=== PATIENT | female | born 1950 | race Caucasian/White ===

== ENCOUNTER → 2016-07-05 | Outpatient (CLI) | payer MEDICARE, OTHER ==
--- NOTE | 2016-07-05 13:24 | XCELERA REPORT ---
[address] [address] Lower Extremity Venous Evaluation Name: RICARDO HOLM Age: 65 yrs Gender: Female : 1950 Patient Status: Outpatient Patient Location: Study Date: 07/05/2016 11:42 AM Procedure: Color flow and duplex imaging bilaterally of the veins of the lower extremities as well as the Common Femoral veins. Reason For Study: BLE PAIN Ordering Physician: GERARDO MCCLENDON Performed By: Angelika Kaufman Right Sided Venous Evaluation Normal vessel filling wall to wall, compression and augmentation as well as Colour flow down to the infrageniculate veins. Left Sided Venous Evaluation Abnormal finding of continuous flow in the Common Femoral vein. Otherwise normal vessel filling wall to wall, compression and augmentation as well as Colour flow down to the infrageniculate veins. Critical Findings Discussed with MALIK Bowman, Iliac and IVC evaluation seems indicated. Perhaps by MRV, or CTV. Interpretation Summary No duplex evidence of DVT or obstruction in the bilateral lower extremities. 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 : GERARDO MCCLENDON > Vic Solis
== END ==
LOC: SP 11:35
PROVIDERS: ATTEND Nurse Practitioner Psychiatric/Mental Health
DX: M79.662 Pain in left lower leg (principal); M79.661 Pain in right lower leg
CPT/HCPCS: 93970

== ENCOUNTER 2016-07-07 02:33 | Emergency (ER) | payer MEDICARE, OTHER ==
[2016-07-07] MEDS ORDERED: ONDANSETRON 4 MG TAB.RAPDIS PO ONE (03:17)
--- NOTE | 2016-07-07 03:23 | ER Document Report ---
ED GI/ - General Chief Complaint: Nausea/Vomiting/Diarrhea Stated Complaint: VOMITING AND DIARRHEA Notes: The patient is a 65-year-old female, past medical history prior CVA with mild residual left-sided weakness, hypertension, presents with 4 hours of nausea, vomiting and 3 episodes of diarrhea. She thinks that she is having a stroke again because she is having tingling on both cheeks after she vomited. Initially, her family members said that she had slurred speech, but she did not have her dentures in place and when she put them in, her speech was normal. She denies chest pain, shortness of breath, acute focal weakness, fevers, hematemesis, hematochezia, urinary symptoms, rash, abdominal pain, headache, recent travel or sick contacts. TRAVEL OUTSIDE OF THE [place] IN LAST 30 DAYS: No - Related Data Allergies/Adverse Reactions: iodine [Iodine] Allergy (Verified 02/08/16 15:38) Sulfa (Sulfonamide Antibiotics) Allergy (Verified 02/08/16 15:38) Fish Allergy (Severe, Uncoded 02/08/16 15:38) Past Medical History - General Information source: Patient - Social History Smoking Status: Unknown if Ever Smoked Family History: Reviewed & Not Pertinent, Hypertension Patient has suicidal ideation: No Patient has homicidal ideation: No - Past Medical History Cardiac Medical History: Reports: Hx Congestive Heart Failure, Hx Heart Attack, Hx Hypercholesterolemia, Hx Hypertension Pulmonary Medical History: Denies: Hx Asthma, Hx Bronchitis, Hx COPD, Hx Pneumonia, Hx Tuberculosis Neurological Medical History: Denies: Hx Seizures Endocrine Medical History: Reports: Hx Diabetes Mellitus Type 2 Renal/ Medical History: Reports: Hx Kidney Stones. Denies: Hx End Stage Renal Disease, Hx Peritoneal Dialysis GI Medical History: Reports: Hx Gastroesophageal Reflux Disease. Denies: Hx Cirrhosis, Hx Ulcer Musculoskeltal Medical History: Denies Hx Arthritis, Denies Hx Multiple Sclerosis Psychiatric Medical History: Reports: Hx Depression Denies: Hx Bipolar Disorder, Hx Schizophrenia Past Surgical History: Reports: Hx Cardiac Catheterization, Hx Cardiac Surgery - STENT placement, Hx Cholecystectomy, Hx Hysterectomy - Immunizations Hx Diphtheria, Pertussis, Tetanus Vaccination: No Hx Pneumococcal Vaccination: 12/16/11 Review of Systems - Review of Systems Notes: REVIEW OF SYSTEMS: CONSTITUTIONAL: -fevers, -chills EENT: -eye pain, -difficulty swallowing, -nasal congestion CARDIOVASCULAR:-chest pain, -syncope. RESPIRATORY: -cough, -SOB GASTROINTESTINAL: -abdominal pain, +nausea, +vomiting, +diarrhea GENITOURINARY: -dysuria, -hematuria MUSCULOSKELETAL: -back pain, -neck pain SKIN: -rash or skin lesions. HEMATOLOGIC: -easy bruising or bleeding. LYMPHATIC: -swollen, enlarged glands. NEUROLOGICAL: -altered mental status or loss of consciousness, -headache, + tingling over B/L cheeks PSYCHIATRIC: -anxiety, -depression. ALL OTHER SYSTEMS REVIEWED AND NEGATIVE. Physical Exam - Vital signs Vitals: Temp Pulse Resp BP Pulse Ox 97.3 F 66 28 H 181/84 H 100 07/07/16 02:38 07/07/16 02:38 07/07/16 02:38 07/07/16 02:38 07/07/16 02:38 - Notes Notes: PHYSICAL EXAMINATION: GENERAL: Well-appearing, well-nourished and in no acute distress. HEAD: Atraumatic, normocephalic. EYES: Pupils equal round and reactive to light, extraocular movements intact, sclera anicteric, conjunctiva are normal. ENT: nares patent, oropharynx clear without exudates. Moist mucous membranes. NECK: Normal range of motion, supple without lymphadenopathy LUNGS: Breath sounds clear to auscultation bilaterally and equal. No wheezes rales or rhonchi. HEART: Regular rate and rhythm without murmurs ABDOMEN: Soft, nontender, normoactive bowel sounds. No guarding, no rebound. No masses appreciated. EXTREMITIES: Normal range of motion, no pitting or edema. No cyanosis. NEUROLOGICAL: Cranial nerves grossly intact. Normal speech, normal gait. Normal sensory, motor, and reflex exams. PSYCH: Normal mood, normal affect. SKIN: Warm, Dry, normal turgor, no rashes or lesions noted. Course - Re-evaluation Re-evalutation: Patient made a stroke alert by triage nurse. CT head does not show any acute changes. Symptoms are not consistent with a stroke. She has bilateral cheek tingling after vomiting and her slurred speech was from lack of dentures. Her electrolytes are unremarkable, other than slight hypokalemia, which was repleted in the ER. She has a slight leukocytosis, which is most likely reactive from vomiting. No signs of infection. After Zofran, patient feels much better and is drinking in the emergency room. Her blood pressure improved after she was given her home blood pressure medications. Will provide patient with Phenergan and instructions to stay hydrated. Given strict return precautions and she understands. - Vital Signs Vital signs: Temp Pulse Resp BP Pulse Ox 97.3 F 60 18 191/95 H 97 07/07/16 02:38 07/07/16 03:41 07/07/16 04:02 07/07/16 04:02 07/07/16 04:02 - Laboratory Result Diagrams: 07/07/16 03:25 07/07/16 03:25 Laboratory results interpreted by me: 07/07/16 07/07/16 03:25 03:25 WBC 12.1 H MCH 26.3 L RDW 16.3 H Seg Neutrophils % 87.6 H Lymphocytes % 8.9 L Monocytes % 2.9 L Absolute Neutrophils 10.6 H Potassium 3.3 L Carbon Dioxide 15 L Anion Gap 23 H Glucose 365 H AST 45 H - EKG Interpretation by Me EKG shows normal: Sinus rhythm, [place], Intervals, QRS Complexes, ST-T Waves Additional EKG results interpreted by me: Prolonged QTc 515 Discharge - Discharge Clinical Impression: Nausea vomiting and diarrhea, Hypokalemia Condition: Stable Disposition: HOME, SELF-CARE Additional Instructions: VOMITING: Vomiting (or nausea without vomiting) can be caused by many other different problems. It can mean that something's wrong with the stomach, such as ulcers or inflammation or the intestinal tract, such as appendicitis. But it can also be a symptom of a problem that has nothing to do with the stomach or intestines. Vomiting is common with severe headaches, earaches, tonsillitis, and kidney infections, etc. We see it with pneumonia or heart attacks. Drugs can cause nausea and vomiting. Many abdominal problems cause vomiting; for example, gallstones, kidney stones, pancreatitis, and intestinal obstruction ( blocked bowels). In most cases, curing the vomiting depends on fixing the problem that caused it. For temporary relief, we may use an anti-nausea medicine. For home use, we can prescribe suppositories, chewable pills, pills that dissolve in the mouth, or liquid anti-nausea drugs. If the vomiting seems to be caused by a problem in the stomach, acid-suppressing drugs may be prescribed as well. It's important to avoid dehydration. Sip small amounts of clear liquids ( soft drinks, tea, broth, etc) . Try to take fluids frequently even if you are vomiting to prevent dehydration. Take increasing amounts of fluid and when liquids are being consumed successfully, advance to small amounts of bland food (toast, soups, mashed potatoes, etc.) until you are able to resume a regular diet. Avoid aspirin, tobacco, and alcohol. If the vomiting worsens, if the problem that's making you vomit worsens, or if there's evidence of bleeding in the stomach (such as black, tarry stool, or bloody or black vomit), you should return immediately. Also, return if abdominal pain worsens or becomes localized to one area or you develop high fever. Call your doctor if you aren't improved in 24 hours. DIARRHEA, NON-SPECIFIC: Diarrhea means frequent, watery stools. There are many causes. Any problem that keeps the intestinal tract from absorbing water from the stool can lead to diarrhea. A sudden new diarrhea problem is usually caused by a virus, food sensitivity, toxic bacteria, or drugs. In this case, we expect the problem to go away soon. Testing is done only if you seem seriously ill from the diarrhea. If you have chronic diarrhea, or diarrhea that keeps coming back, we need to find out why. Chronic diarrhea can be due to inflammation of the bowels such as Crohn's disease or ulcerative colitis, food sensitivity such as intolerance to lactose or wheat protein, irritable bowel syndrome, and other problems. If your diarrhea is a significant problem but it's not clear why you have it, we' ll refer you to a specialist for further testing. During an episode of diarrhea, drink small amounts (two to six ounces) of clear liquids (soft drinks, sport drinks, herb teas, broth, etc). Take fluids frequently to prevent dehydration. It's usually not a problem to take mild anti- diarrhea medication such as Kaopectate or Pepto-Bismol. As the diarrhea eases, advance to small amounts of bland food (mashed potato, toast) for 24 hours. Call the physician if blood appears in your vomit or stool, if vomiting lasts longer than 24 hours, if the abdominal pain worsens or becomes localized to one area, if you develop high fever, or if you become lightheaded and weak. VIRAL SYNDROME: The physician has diagnosed a viral infection. Viruses not only cause "colds," but can cause many different symptoms including generalized aching, fever, headache, cough, diarrhea, nausea, vomiting, and fatigue. The treatment, for the most part, is simply relief of symptoms. This means that antibiotics are usually not given. Rest, fluids, pain medications and, occasionally, medication for the specific symptoms that are most bothersome will be prescribed. Use good handwashing to avoid passing the virus to others. Shared toys should be cleaned with disinfectant. Clean the toilets, sinks, and counter surfaces in bathrooms. Launder clothing in hot water. Contact the physician if you develop any new or unusual symptoms such as severe headache, stiff neck, high fever, chest pain, productive cough, or shortness of breath. You should be rechecked if you don't see marked improvement within seven to 10 days. INTRAVENOUS (I V) FLUIDS: As part of your care today, you received intravenous (IV) fluids. IV fluids are administered to patients who are dehydrated or to those who have certain chemical (electrolyte) abnormalities that need correcting. ANTINAUSEA MEDICATION: You have been given a medication to suppress nausea and vomiting. This type of medication can be given as a shot, pill, or suppository. It will usually last for many hours. Pills and shots usually last six to eight hours. For the typical illness, only one or two doses of the medication may be necessary. Mild lightheadedness may occur. This type of medicine can cause drowsiness. Do not drive or operate dangerous machinery while under its influence. Do not mix with alcohol. See your doctor at once if you have muscle spasms or tightness, or uncontrollable motions (particularly of the neck, mouth, or jaw). Persistent vomiting or severe lightheadedness should also be evaluated by the physician. FOLLOW-UP CARE: If you have been referred to a physician for follow-up care, call the physician s office for an appointment as you were instructed or within the next two days. If you experience worsening or a significant change in your symptoms, notify the physician immediately or return to the Emergency Department at any time for re-evaluation. Prescriptions: Promethazine HCl [Phenergan 25 mg Tablet] 1 - 2 tab PO Q6H PRN #15 tablet PRN Reason: Forms: Elevated Blood Pressure Referrals: PONCHO CONTRERAS MD [Primary Care Provider] - Follow up as needed
[2016-07-07 03:50] LABS: ABSOLUTE BASOPHILS # (AUTO) 0.1 10^3/uL (0.0-0.2); ABSOLUTE LYMPHOCYTES (AUTO) 1.1 10^3/uL (0.5-4.7); ABSOLUTE MONOCYTES (AUTO) 0.3 10^3/uL (0.1-1.4); ABSOLUTE NEUT (AUTO) 10.6 10^3/uL (1.7-8.2); BASOPHILS % (AUTO) 0.5 % (0-2); EOSINOPHILS % (AUTO) 0.1 % (0-6); HEMOGLOBIN 13.4 g/dL (12.0-15.5); HGB HCT DIFFERENCE -0.8; LYMPHOCYTES % (AUTO) 8.9 % (13-45); MEAN CORPUSCULAR HEMOGLOBIN 26.3 pg (27.0-33.4); MEAN CORPUSCULAR HGB CONC 32.8 g/dL (32.0-36.0); MEAN CORPUSCULAR VOLUME 80 fl (80-97); MONOCYTES % (AUTO) 2.9 % (3-13); RED BLOOD COUNT 5.11 10^6/uL (3.72-5.28); RED CELL DISTRIBUTION WIDTH 16.3 % (11.5-14.0); SEGMENTED NEUTROPHILS % (AUTO) 87.6 % (42-78); WHITE BLOOD COUNT 12.1 10^3/uL (4.0-10.5)
[2016-07-07] MEDS ORDERED: LOSARTAN POTASSIUM 50 MG TABLET PO ONE (03:56)
[2016-07-07] MEDS ORDERED: NORMAL SALINE 1000 ML 1,000 ML IV ONE (03:56)
[2016-07-07] MEDS ORDERED: METOPROLOL TARTRATE 25 MG TABLET PO ONE (03:56)
[2016-07-07] MEDS ORDERED: HYDROCHLOROTHIAZIDE 25 MG TABLET PO ONE (03:56)
[2016-07-07 04:02] LABS: ALANINE AMINOTRANSFERASE 47 U/L (9-52); ALBUMIN 3.9 g/dL (3.5-5.0); ALKALINE PHOSPHATASE 110 U/L (38-126); ASPARTATE AMINO TRANSFERASE 45 U/L (14-36); BILIRUBIN,DIRECT 0.3 mg/dL (0.0-0.4); BILIRUBIN,TOTAL 0.8 mg/dL (0.2-1.3); BLOOD UREA NITROGEN 11 mg/dL (7-20); CALCIUM 9.6 mg/dL (8.4-10.2); CARBON DIOXIDE 15 mmol/L (22-30); CREATININE RESULT 0.87 mg/dL (0.52-1.25); GLUCOSE 365 mg/dL (75-110); LIPASE 92.7 U/L (23-300); POTASSIUM 3.3 mmol/L (3.6-5.0)
[2016-07-07 04:13] LABS: CHLORIDE 105 mmol/L (98-107); SODIUM 143.4 mmol/L (137-145)
[2016-07-07 04:18] LABS: ANION GAP 23 (5-19)
[2016-07-07] MEDS ORDERED: POTASSIUM CHLORIDE 10 MEQ TABLET.SA PO ONE (04:42)
[2016-07-07 05:13] VITALS: BP 174/81
--- NOTE | 2016-07-07 16:59 | EKG REPORT ---
SEVERITY:- ABNORMAL ECG - SINUS RHYTHM PROBABLE ANTEROSEPTAL INFARCT, AGE INDETERM PROLONGED QT INTERVAL : Confirmed by: Rosa Maria Olivarez MD 07-Jul-2016 16:58:55
== END 2016-07-07 05:13 | disposition home or self-care (01) ==
LOC: ER 02:33
DX: R11.2 Nausea with vomiting, unspecified (principal); R19.7 Diarrhea, unspecified; E87.6 Hypokalemia; R53.1 Weakness; I10 Essential (primary) hypertension
CPT/HCPCS: 93005; 99285; 96360; 36415; 83690; 85025; 80076; 80048; 84484; 71010; 70450; 93010; A9270 ×4; J7030; S0119

== ENCOUNTER 2016-07-07 14:20 | Emergency (ER) | payer MEDICARE, OTHER ==
--- NOTE | 2016-07-07 14:38 | ER Document Report ---
ED Neuro Symptoms/Deficit - General Mode of Arrival: Medic Information source: Patient, Relative Notes: 65 year old female with history of a CVA, residual left lower extremity weakness , and hypertension presents to the ED complaining of nausea, vomiting, diarrhea , and new onset left upper and lower extremity weakness that the patient noticed when she woke up this morning. Patient was seen here last night complaining of nausea, vomiting, diarrhea, and slurred speech. Patient's family was concerned over a possible stroke, but no findings suggesting a stroke was found. Daughter reports that the patient must have developed the weakness after coming home from the ED last night because she was able to walk into the house on her own. Today, the patient states that she is having difficulty walking and was unable to walk to EMS just prior to arrival. Patient denies any new pain, blood in the stool, or slurry speech. Daughter states that the patient's speech is usually better than it is upon examination. Patient's primary care provider is Dr. Contreras. TRAVEL OUTSIDE OF THE [place] IN LAST 30 DAYS: No - HPI Patient complains to provider of: Difficulty walking, Weakness - left arm and leg Onset: This morning Baseline Cognitive: Alert, oriented X 3 Baseline Gait: Uses a cane/walker Pre-existing weakness: Lower extremity - left leg Alert To: Name/Voice Patient Orientation: Person New weakness: LUE, LLE Associated symptoms: Other - see notes above Recently seen / treated by doctor: Yes - Seen in ED earlier this morning. <RICARDA DICKERSON - Last Filed: 07/07/16 19:09> <BLAZE STEIN - Last Filed: 07/07/16 20:11> <ALIYA FIELDS E - Last Filed: 07/07/16 22:35> - General Chief Complaint: S/S of Possible Stroke Stated Complaint: POSSIBLE STROKE - Related Data Allergies/Adverse Reactions: iodine [Iodine] Allergy (Verified 02/08/16 15:38) Sulfa (Sulfonamide Antibiotics) Allergy (Verified 02/08/16 15:38) Fish Allergy (Severe, Uncoded 02/08/16 15:38) Past Medical History - General Information source: Patient, Relative - Social History Smoking Status: Unknown if Ever Smoked Family History: Hypertension - Past Medical History Cardiac Medical History: Reports: Hx Congestive Heart Failure, Hx Heart Attack, Hx Hypercholesterolemia, Hx Hypertension Neurological Medical History: Reports: Hx Cerebrovascular Accident - residual left lower extremity weakness Endocrine Medical History: Reports: Hx Diabetes Mellitus Type 2 Renal/ Medical History: Reports: Hx Kidney Stones GI Medical History: Reports: Hx Gastroesophageal Reflux Disease Psychiatric Medical History: Reports: Hx Depression Past Surgical History: Reports: Hx Cardiac Catheterization, Hx Cardiac Surgery - STENT placement, Hx Cholecystectomy, Hx Hysterectomy - Immunizations Hx Diphtheria, Pertussis, Tetanus Vaccination: No Hx Pneumococcal Vaccination: 12/16/11 <RICARDA DICKERSON - Last Filed: 07/07/16 19:09> Review of Systems - Review of Systems Constitutional: No symptoms reported EENT: No symptoms reported Cardiovascular: No symptoms reported Respiratory: No symptoms reported Gastrointestinal: See HPI, Diarrhea, Nausea, Vomiting. denies: Black stools, Rectal bleeding Genitourinary: No symptoms reported Female Genitourinary: No symptoms reported Musculoskeletal: No symptoms reported Skin: No symptoms reported Hematologic/Lymphatic: No symptoms reported Neurological/Psychological: See HPI, Weakness - left upper and lower extremity, Speech impairment - possible -: Yes All other systems reviewed and negative <RICARDA DICKERSON - Last Filed: 07/07/16 19:09> Physical Exam - Vital signs Vitals: Temp Pulse Resp BP Pulse Ox 97.8 F 64 20 186/92 H 97 07/07/16 14:20 07/07/16 14:20 07/07/16 14:20 07/07/16 14:20 07/07/16 14:20 - General General appearance: Alert In distress: None - HEENT Head: Atraumatic, Other - nasolabial flattening to the left face. No: Normocephalic Eyes: Normal Extraocular movements intact: Yes Pupils: PERRL - Respiratory Respiratory status: No respiratory distress Breath sounds: Normal - Cardiovascular Rhythm: Regular Heart sounds: Normal auscultation - Abdominal Inspection: Normal Distension: No distension Bowel sounds: Hyperactive Tenderness: Nontender - Back Back: Normal - Extremities General upper extremity: No: Normal inspection - see neuro exam, Normal ROM General lower extremity: No: Normal inspection - see neuro exam, Normal ROM - Neurological Neuro grossly intact: Yes Cognition: Normal Orientation: AAOx4 Chloé Coma Scale Eye Opening: Spontaneous [place] Coma Scale Verbal: Oriented Chloé Coma Scale Motor: Obeys Commands Chloé Coma Scale Total: 15 Speech: Normal Motor strength normal: RUE, RLE. No: LUE - Contracture with weakness to the LUE , LLE - Contracture with weakness to the LLE - Psychological Associated symptoms: Normal affect, Normal mood - Skin Skin Temperature: Warm Skin Moisture: Dry Skin Color: Normal <RICARDA DICKERSON - Last Filed: 07/07/16 19:09> - Vital signs Vitals: Temp Pulse Resp BP Pulse Ox 97.8 F 64 20 186/92 H 97 07/07/16 14:20 07/07/16 14:20 07/07/16 14:20 07/07/16 14:20 07/07/16 14:20 <BLAZE STEIN F - Last Filed: 07/07/16 20:11> - Vital signs Vitals: Temp Pulse Resp BP Pulse Ox 97.8 F 64 20 186/92 H 97 07/07/16 14:20 07/07/16 14:20 07/07/16 14:20 07/07/16 14:20 07/07/16 14:20 <ALIYA FIELDS E - Last Filed: 07/07/16 22:35> Course - Vital Signs Vital signs: Temp Pulse Resp BP Pulse Ox 97.8 F 64 20 163/76 H 100 07/07/16 14:20 07/07/16 14:20 07/07/16 14:20 07/07/16 14:28 07/07/16 14:23 - Laboratory Result Diagrams: 07/07/16 15:45 07/07/16 15:15 - Consults Dr. Dickerson Time consulted: 18:45 Reason for consultation: 07/07/16 18:45 Patient was discussed with Dr. Dickerson and states to repeat troponin and check for C-diff. Will admit the patient to IMCU under Dr. Contreras. 07/07/16 19:09 Patient went into non-sustained V-tach. Dr. Dickerson was at bedside and agrees that the patient should go to ICU. <RICARDA DICKERSON - Last Filed: 07/07/16 19:09> - Re-evaluation Re-evalutation: 07/07/16 17:52 Initial presentation by family showed the patient with increasing from chronic neurologic symptoms from an old MCA stroke. She is slowly improved though in mentation and moving her extremities much better. Appears more consistent at this point with sepsis of unclear source though findings are still pending. Lactic acid is elevated at 2.8 so we will increase her fluids though she has had no evidence of hypoperfusion other than potential decreased mentation and weakness generally. 07/07/16 19:13 Patient had an episode of nonsustained V. tach. Discussed with Dr. Dickerson and recommended repeat troponin. Patient has denied chest pain. Her initial troponin was borderline. She remained completely responsive during the episode. 07/07/16 19:30 The patient had an NC apparently in December of last year treated at [facility]. I do have record of one from 2013 here. The pacemaker and defibrillator placement apparently was at the end of 2014 or 2015. She is taking Brilinta as her only blood thinner. 07/07/16 19:33 Patient's troponin is gone from 0.018 to 0.067 from 3 AM to approximately 3:45 PM today. She denies any current chest discomfort. She is already on Brilinta so will not give her aspirin, particularly with her nausea. Her abdominal CT showed nephrolithiasis and diverticulosis but no clear acute issue. Awaiting a return call from [facility] lab contacted for transfer. 07/07/16 19:[address] Wheeler, from the internal medicine service, at [facility]. She prefers I talked to cardiology prior to accepting the patient in transfer. 07/07/16 20:[address] Camargo who reviewed the patient's chart and has had nonsustained V. tach in the past. She did not feel the patient was probably defibrillated as these runs were shorter than that. I spoke with Dr. Blanca morrison again and they will accept the patient in transfer. Urinalysis appears to be the source of infection. She has already been treated with Zosyn. She is having her potassium replaced. Dr. Camargo did not feel we should be using amiodarone at this point with the nonsustained V. tach. - Vital Signs Vital signs: Temp Pulse Resp BP Pulse Ox 97.8 F 58 L 20 163/76 H 100 07/07/16 14:20 07/07/16 14:28 07/07/16 14:28 07/07/16 14:28 07/07/16 15:51 - Laboratory Result Diagrams: 07/07/16 15:45 07/07/16 15:15 - Diagnostic Test Radiology reviewed: Image reviewed, Reports reviewed - Head CT shows chronic microvascular changes and chest x-ray shows no acute process - EKG Interpretation by Me EKG shows normal: Sinus rhythm Rate: Normal - Heart rate 69. Nonspecific T-wave abnormalities in the lateral leads. <BLAZE STEIN F - Last Filed: 07/07/16 20:11> - Re-evaluation Re-evalutation: 07/07/16 22:34 [facility] in ER and patient is stable for transfer to [facility]. - Vital Signs Vital signs: Temp Pulse Resp BP Pulse Ox 98.3 F 63 11 L 151/98 H 100 07/07/16 21:55 07/07/16 21:00 07/07/16 21:59 07/07/16 21:59 07/07/16 21:59 - Laboratory Result Diagrams: 07/07/16 15:45 07/07/16 15:15 Laboratory results interpreted by me: 07/07/16 07/07/16 07/07/16 15:15 15:45 15:45 WBC 21.1 H RBC 5.42 H MCV 79 L MCH 26.3 L RDW 16.2 H Seg Neuts % (Manual) 93 H Band Neutrophils % 1 L Lymphocytes % (Manual) 5 L Monocytes % (Manual) 1 L Abs Neuts (Manual) 19.8 H APTT 22.8 L Potassium 3.2 L Chloride 96 L Anion Gap 24 H Glucose 317 H Lactic Acid AST 54 H Creatine Kinase 998 H CK-MB (CK-2) Urine Protein Urine Glucose (UA) Urine Ketones Urine Blood Ur Leukocyte Esterase 07/07/16 07/07/16 07/07/16 15:45 17:15 18:50 WBC RBC MCV MCH RDW Seg Neuts % (Manual) Band Neutrophils % Lymphocytes % (Manual) Monocytes % (Manual) Abs Neuts (Manual) APTT Potassium Chloride Anion Gap Glucose Lactic Acid 2.8 H AST Creatine Kinase CK-MB (CK-2) 5.01 H Urine Protein 30 H Urine Glucose (UA) >=500 H Urine Ketones 20 H Urine Blood LARGE H Ur Leukocyte Esterase LARGE H <ALIYA FIELDS E - Last Filed: 07/07/16 22:35> Critical Care Note - Critical Care Note Total time excluding time spent on procedures (mins): 32 <BLAZE STEIN - Last Filed: 07/07/16 20:11> ED [employer]/Exc Criteria ED NIH Stroke Scale Discharge <RICARDA DICKERSON - Last Filed: 07/07/16 19:09> - Discharge Admitting Provider: Margaret Unit Admitted: JHONNY Michelleibe Attestation: 07/07/16 18:52 I personally performed the services described in the documentation, reviewed and edited the documentation which was dictated to the scribe in my presence, and it accurately records my words and actions. <BLAZE STEIN - Last Filed: 07/07/16 20:11> <ALIYA FIELDS - Last Filed: 07/07/16 22:35> - Discharge Clinical Impression: Sepsis, Vomiting and diarrhea, Left-sided weakness, Hypokalemia Condition: Serious Disposition: [facility] Referrals: PONCHO CONTRERAS MD [Primary Care Provider] - Follow up as needed Scribe Documentation - Scribe Written by Miguel Angelibe:: Luis Alfredo Edwards, 07/07/2016 1454 acting as scribe for :: Gilson <RICARDA DICKERSON - Last Filed: 07/07/16 19:09>
[2016-07-07] MEDS ORDERED: ONDANSETRON HCL INJ/PF 4 MG/2 ML SDV IV ONE ×2 (14:52→20:15)
[2016-07-07] MEDS ORDERED: NORMAL SALINE 1000 ML 1,000 ML IV ONE ×2 (14:53→17:59)
[2016-07-07 16:07] LABS: PROTHROMBIN TIME 13.4 SEC (11.4-15.4)
[2016-07-07 16:08] LABS: PARTIAL THROMBOPLASTIN TIME 22.8 SEC (23.5-35.8)
[2016-07-07 16:16] LABS: HEMATOCRIT 42.9 % (36.0-47.0); HEMOGLOBIN 14.3 g/dL (12.0-15.5); MEAN CORPUSCULAR HEMOGLOBIN 26.3 pg (27.0-33.4); MEAN CORPUSCULAR HGB CONC 33.3 g/dL (32.0-36.0); MEAN CORPUSCULAR VOLUME 79 fl (80-97); RED BLOOD COUNT 5.42 10^6/uL (3.72-5.28); RED CELL DISTRIBUTION WIDTH 16.2 % (11.5-14.0); WHITE BLOOD COUNT 21.1 10^3/uL (4.0-10.5)
[2016-07-07 16:18] LABS: ALANINE AMINOTRANSFERASE 52 U/L (9-52); ALBUMIN 4.5 g/dL (3.5-5.0); ALKALINE PHOSPHATASE 122 U/L (38-126); ASPARTATE AMINO TRANSFERASE 54 U/L (14-36); BILIRUBIN,DIRECT 0.3 mg/dL (0.0-0.4); BILIRUBIN,TOTAL 0.9 mg/dL (0.2-1.3); BLOOD UREA NITROGEN 10 mg/dL (7-20); CARBON DIOXIDE 24 mmol/L (22-30); CHLORIDE 96 mmol/L (98-107); CREATINE KINASE 998 U/L (30-135); CREATININE RESULT 0.87 mg/dL (0.52-1.25); GLUCOSE 317 mg/dL (75-110); SODIUM 143.5 mmol/L (137-145); TOTAL PROTEIN 7.9 g/dL (6.3-8.2)
[2016-07-07 16:19] LABS: ANION GAP 24 (5-19); POTASSIUM 3.2 mmol/L (3.6-5.0)
[2016-07-07 16:21] LABS: BAND NEUTROPHILS % (MANUAL) 1 % (3-5); BASOPHILS % (MANUAL) 0 % (0-2); EOSINOPHILS % (MANUAL) 0 % (0-6); LYMPHOCYTES % (MANUAL) 5 % (13-45); TOTAL CELLS COUNTED 100
[2016-07-07 16:22] LABS: RBC MORPHOLOGY COMMENT NORMO-CYTIC/CHROMIC
[2016-07-07 16:31] LABS: CREATINE KINASE MB 5.01 ng/mL (<4.55)
[2016-07-07 16:33] LABS: TROPONIN I 0.067 ng/mL
[2016-07-07] MEDS ORDERED: PIPERACILLIN/TAZOBACTAM 3.375 GM VIAL IV ONE (16:48)
--- NOTE | 2016-07-07 16:59 | EKG REPORT ---
SEVERITY:- ABNORMAL ECG - SINUS RHYTHM NONSPECIFIC T ABNORMALITIES, ANT-LAT LEADS BORDERLINE PROLONGED QT INTERVAL : Confirmed by: Rosa Maria Olivarez MD 07-Jul-2016 16:58:45
[2016-07-07] MEDS ORDERED: INSULIN REG, HUMAN 100 UNIT/ML 3 ML VIAL (PYX) IV ONE (18:42)
[2016-07-07] MEDS ORDERED: ONDANSETRON HCL INJ/PF 4 MG/2 ML SDV IV PRN (18:49)
[2016-07-07] MEDS ORDERED: NORMAL SALINE 1000 ML 1,000 ML IV PRN (18:49)
[2016-07-07] MEDS ORDERED: DEXTROSE 50%-WATER 25 GM/50 ML DISP.SYRIN IV PRN ×2 (18:53)
[2016-07-07] MEDS ORDERED: GLUCAGON,HUMAN RECOMB 1 MG INJ IM PRN (18:53)
[2016-07-07] MEDS ORDERED: INSULIN LISPRO 100 UNIT/ML 3 ML VIAL SUBCUT PRN (18:53)
[2016-07-07] MEDS ORDERED: DEXTROSE 40% GEL 15 GM TUBE PO PRN ×2 (18:53)
[2016-07-07 19:26] LABS: APPEARANCE,URINE CLOUDY; BILIRUBIN,URINE NEGATIVE (NEGATIVE); GLUCOSE, URINE >=500 mg/dL (NEGATIVE); KETONES,URINE 20 mg/dL (NEGATIVE); LEUKOCYTE ESTERASE,URINE LARGE (NEGATIVE); NITRITE,URINE NEGATIVE (NEGATIVE); PROTEIN,URINE 30 mg/dL (NEGATIVE); URINE SPECIFIC GRAVITY 1.013; UROBILINOGEN,URINE NEGATIVE mg/dL (<2.0)
[2016-07-07] MEDS ORDERED: POTASSIUM CHLORIDE 10 MEQ TABLET.SA PO ONE ×2 (19:36→22:00)
--- NOTE | 2016-07-07 19:58 | HISTORY AND PHYSICAL E ---
History and Physical NAME: RICARDO HOLM : 1950 AGE: 65Y ADMITTED: 07/07/2016 ROOM: ED14 HISTORY OF PRESENT ILLNESS: This is a patient of Dr. Contreras. A 65-year-old female with a history of severe left lower extremity weakness and hypertension who presents to the Emergency Department complaining of nausea, vomiting, diarrhea and lower extremity weakness. The patient noted when she woke up this morning. The patient was seen in the ER last night with nausea, vomiting, diarrhea, and slurred speech. The patient's white count was 12,000. Patient was discharged. The patient's family was concerned about possible stroke, but in the Emergency Department, the patient's initial workup of the patient white count was 21,000 and possible sepsis, most likely underlying urinary tract infection. The patient was complaining of some generalized abdominal pain. CT of the abdomen and pelvis without contrast was suggesting 2.3 cm calculus without obstruction. According to the ER physician and the nursing staff, the patient was a little bit more altered mental, and the patient is having more weakness, but now the patient is pretty much alert, awake, oriented x3, and patient moves all four extremities without any problems. The family is at the bedside in the Emergency Department, admitting to the IMCU for possible TIA and sepsis. Workup at this point, the patient currently feels better a little bit much, answering all questions appropriately. PAST MEDICAL HISTORY: 1. History of type 2 diabetes mellitus. 2. History of coronary artery disease status post stent placement. 3. History of CVA in the past with improved residual weakness. 4. History of gastroesophageal reflux disorder. 5. History of hypertension. 6. History of hyperlipidemia. 7. History of myocardial infarction in the past. PAST SURGICAL HISTORY: 1. Cardiac catheterization with stent angioplasty. 2. Cholecystectomy. 3. Hysterectomy. ALLERGIES: 1. SULFA. 2. IODINE. 3. *------*. FAMILY HISTORY: Remarkable for ischemic cardiac disease but non-contributory to this visit. PERSONAL HISTORY: Currently . Denied any current smoking, alcohol, or any drugs. CURRENT MEDICATIONS: 1. Brilinta. 2. Not sure of Phenergan. 3. Not sure of omeprazole. 4. Metoprolol. 5. Losartan. 6. Insulin. 7. Aspirin 81 mg. REVIEW OF SYSTEMS: As above. All other pertinents negative. PHYSICAL EXAMINATION: VITAL SIGNS: The patient's blood pressure was 161/67. Pulse was 72. Patient's temperature is 97.3. Respirations were 18 with 100% on room air. GENERAL: The patient is alert, awake currently, answering all questions in no acute distress. HEAD AND NECK: Normocephalic. PERRLA. LUNGS: No wheezing, no rales, no rhonchi. HEART: S1, S2 are present. ABDOMEN: Soft. Bowel sounds present. There is some mild tenderness but no guarding, no rigidity. EXTREMITIES: No edema. NEUROLOGIC: The patient's cranial nerves grossly intact. Patient is alert, awake, oriented x3. The patient moves all four extremities at this point without any problems. The patient's gait was not tested because the patient is currently weak. LABORATORIES: WBC is 21.1; hemoglobin is 14.3; platelets are 251, and segment is 93. The patient's INR is 0.99. Chemistry: Sodium is 143; potassium is 3.2; BUN is 10; creatinine is 0.87. The patient's AST is 54, ALT 52. Creatinine kinase was 998, and troponin 0.067. Lactic acid was 2.8. The patient's urine is still pending. The patient's head CT was done and shows the patient has chronic changes of atrophy and no acute process. Patient's abdomen and pelvis CT was done which shows the patient to have a 2.3 cm calculus identified in the left renal pelvis and 1.3 cm calculus in the lower pole *------*. There was no CT evidence of hydronephrosis. Mild sigmoid diverticulosis without acute inflammation. ASSESSMENT AND PLAN: 1. Acute cerebrovascular accident most likely a transient ischemic attack which is currently resolved. 2. Sepsis most likely urinary tract infection. 3. Kidney stones. 4. Type 2 diabetes mellitus. 5. Hypertension. 6. Hyperlipidemia. 7. Coronary artery disease status post stent placement. 8. Morbid obesity. PLAN: Admit the patient in the [facility] for stroke protocol. Put the patient on aspirin and consider Plavix. The patient is currently on Brilinta already right now. The patient will get cardiac enzymes q.6 x3 to rule out any coronary syndrome and also start the patient on broad-spectrum IV antibiotics for the urinary tract infection most likely. Otherwise, we will check the C. difficile for exposure to antibiotics. Discussed very extensively with the family member in the room, and more than 45 minutes spent. The patient is currently FULL CODE, and I will update the family about the patient's current condition. The patient is very critical at this point with ongoing TIA with sepsis. I hope the patient continues to be improved. DICTATING PHYSICIAN: THANG LITTLE M.D. [id number] PHY#: [id number] ID: [id number] JOB#: [id number] ACCT: [id number] cc:PONCHO CONTRERAS M.D. >
[2016-07-07] MEDS ORDERED: ONDANSETRON HCL INJ/PF 4 MG/2 ML SDV ONE (20:24)
[2016-07-07] MEDS ORDERED: FAMOTIDINE INJ/PF 20 MG/2 ML SDV IV SCH (22:00)
[2016-07-07 22:05] VITALS: BP 151/98
[2016-07-07] MEDS ORDERED: PIPERACILLIN/TAZOBACTAM 3.375 GM VIAL IV PRN (23:00)
[2016-07-08] MEDS ORDERED: PIPERACILLIN SODIUM/TAZOBACTAM 3.375 GM in NORMAL SALINE 100 ML IV SCH ×2
[2016-07-08] MEDS ORDERED: ENOXAPARIN SODIUM INJ 40 MG/0.4 ML DISP.SYRIN SUBCUT SCH (08:00)
[2016-07-08] MEDS ORDERED: ASPIRIN 325 MG TABLET, ENT COATED PO SCH (10:00)
--- NOTE | 2016-07-08 19:34 | PDOC CONSULTATION ---
Consultation Consult Date: 07/07/16 Attending physician:: THANG LITTLE Consult reason:: V Tach/ V FIB History of Present Illness Admission Date/PCP: PONCHO CONTRERAS Patient complains of: Generalised weakness History of Present Illness: 65 year old female with history of a CVA, residual left lower extremity weakness , and hypertension presents to the ED complaining of nausea, vomiting, diarrhea , and new onset left upper and lower extremity weakness that the patient noticed when she woke up this morning. Patient was seen here last night complaining of nausea, vomiting, diarrhea, and slurred speech. Patient's family was concerned over a possible stroke, but no findings suggesting a stroke was found. Daughter reports that the patient must have developed the weakness after coming home from the ED last night because she was able to walk into the house on her own. Today, the patient states that she is having difficulty walking and was unable to walk to EMS just prior to arrival. Patient denies any new pain, blood in the stool, or slurry speech. Daughter states that the patient's speech is usually better than it is upon examination. Patient's primary care provider is Dr. Contreras. Past Medical History Cardiac Medical History: Reports: Congestive Heart Failure, Myocardial Infarction, Hyperlipidema, Hypertension Pulmonary Medical History: Denies: Asthma, Bronchitis, Chronic Obstructive Pulmonary Disease (COPD), Pneumonia, Tuberculosis Neurological Medical History: Denies: Seizures Endocrine Medical History: Reports: Diabetes Mellitus Type 2 Renal/ Medical History: Denies: End Stage Renal Disease GI Medical History: Reports: Gastroesophageal Reflux Disease Denies: Cirrhosis Musculoskeltal Medical History: Denies: Arthritis Psychiatric Medical History: Reports: Depression Denies: Bipolar Disorder Hematology: Reports: Anemia Denies: Bleeding Tendencies Past Surgical History Past Surgical History: Reports: Cardiac Catheterization, Cholecystectomy, Hysterectomy, Other - Pacemaker defibrillator placement Social History Information Source: Patient Smoking Status: Former Smoker Hx Prescription Drug Abuse: No - Advance Directive Resuscitation Status: Full Code Surrogate healthcare decision maker:: Patient's son and [id number] are surrogate decision-maker. Family History Family History: CAD, Hypertension Parental Family History Reviewed: Yes Children Family History Reviewed: Yes Sibling(s) Family History Reviewed.: Yes Medication/Allergy Home Medications: Losartan/Hydrochlorothiazide [Hyzaar 100-25 Tablet] 1 each PO DAILY #30 tablet 04/23/13 Metoprolol Tartrate [Lopressor 25 mg Tablet] 12.5 mg PO Q12 #60 tablet 04/23/13 Omeprazole 40 mg PO ACKFST #30 capsule. 04/23/13 Ticagrelor [Brilinta] 90 mg PO BID #60 tablet 04/23/13 Aspirin [Ecotrin 81 mg EC Tablet] 81 mg PO DAILY #30 tabec 01/17/16 Insulin Detemir [Levemir Insulin 100 units/mL] 10 unit SUBCUT BIDBS #5 insuln.pen 01/17/16 Promethazine HCl [Phenergan 25 mg Tablet] 1 - 2 tab PO Q6H PRN #15 tablet Allergies/Adverse Reactions: iodine [Iodine] Allergy (Verified 02/08/16 15:38) Sulfa (Sulfonamide Antibiotics) Allergy (Verified 02/08/16 15:38) Fish Allergy (Severe, Uncoded 02/08/16 15:38) Review of Systems Review of Systems: Please see history of present illness and past medical history as wall. Constitutional: No fever or chills reported. Patient has noted generalized fatigue and tiredness. Head : No recent chronic headaches, recent head injury. Eyes: No recent eye pain, diplopia, redness, discharge, acute visual changes. Ears: No recent chronic ear pain, acute hearing loss, ear discharge. Oral cavity: No recent ulcerations, bleeding, oral cavity discomfort. Neck: No recent acute neck pain reported. Hematologic: No recent easy bruising or bleeding or hematologic malignancy reported. Lymphatic: No recent lymphatic malignancy, chronic lymphadenopathy reported yet Cardiovascular system review: See history of present illness. Shortness of breath marked fatigue and tiredness. Respiratory system review: No recent chronic cough, hemoptysis, blood clots in the lungs reported. Mild Shortness of breath on exertion Gastrointestinal system review: Recent diffuse abdominal pain, with nausea vomiting and diarrhea but no recent hematemesis, melena. Genitourinary system review: No recent acute or chronic hematuria, flank pain, UTI etc. reported. Skin system review: Negative for any recent abnormal bruising, no rash, no pruritus reported. Neurologic: No prior history of strokes, mini strokes, seizure disorder. Psychologic: No history of major psychosis or major depression reported. Musculoskeletal: Minor aches and pains reported. No acute joint swelling reported. Endocrine: No recent polyuria, polydipsia, recent heat or cold intolerance. Physical Exam Vital Signs: Temp Pulse Resp BP Pulse Ox 97.8 F 64 20 145/63 H 99 07/07/16 14:20 07/07/16 14:30 07/07/16 20:31 07/07/16 20:31 07/07/16 20:31 Exam: GENERAL: well-nourished and in no acute distress. Alert and oriented x3. Patient somewhat lethargic and seems very weak. HEAD: Atraumatic, normocephalic. EYES: Pupils equal round and reactive to light, extraocular movements intact, sclera anicteric, conjunctiva are normal. ENT: TMs normal, nares patent, oropharynx clear without exudates. Moist mucous membranes. No oral ulcerations or bleeding gums noted NECK: supple without lymphadenopathy. Trachea is central. No cervical or axillary lymphadenopathy noted. Carotids are 2+, JVD WNL LUNGS: Respiration seems nonlabored, no significant accessory muscle action noted. Breath sounds clear to auscultation bilaterally and equal noted. No wheezes rales or rhonchi noted. No significant dullness noted on percussion. CHEST: Palpation of the chest wall shows no significant chest wall tenderness. No other significant abnormalities noted. Pacemaker defibrillator noted on the left side chest. HEART: [place]rill MATERIAL HANDLER 2ND SHIFT, No PSH, 1/6 ALESSANDRA aortic area, 1/6 keene systolic murmur mitral area, no rubs, no gallops. ABDOMEN: Soft, mild diffuse tenderness appreciated, normoactive bowel sounds. No guarding, no rebound. No rigidity noted . No masses appreciated. EXTREMITIES: Pedal pulses are 1-2+, no calf tenderness noted. No clubbing or cyanosis.1+ pedal edema noted NEUROLOGICAL: Focused neurological exam showed no significant neurologic deficit. Normal speech, patient has generalized weakness. Gait not checked muscle strength not checked but patient able to move all 4 extremities but seems generally very weak.. PSYCH: Normal mood, normal affect. Judgment and insight within normal limits. SKIN: No significant ecchymosis, rash, ulcerations or signs of pruritus noted. MUSCULOSKELETAL EXAM: No significant joint swelling noted. Results Laboratory Results: 07/07/16 15:45 07/07/16 15:15 07/07/16 07/07/16 07/07/16 15:15 15:15 15:45 WBC 21.1 H RBC 5.42 H Hgb 14.3 Hct 42.9 MCV 79 L MCH 26.3 L MCHC 33.3 RDW 16.2 H Plt Count 251 Seg Neutrophils % Not Reportable Lymphocytes % Not Reportable Monocytes % Not Reportable Eosinophils % Not Reportable Basophils % Not Reportable Absolute Neutrophils Not Reportable Absolute Lymphocytes Not Reportable Absolute Monocytes Not Reportable Absolute Eosinophils Not Reportable Absolute Basophils Not Reportable Sodium 143.5 Potassium 3.2 L Chloride 96 L Carbon Dioxide 24 Anion Gap 24 H BUN 10 Creatinine 0.87 Est GFR ( Amer) > 60 Est GFR (Non-Af Amer) > 60 Glucose 317 H Lactic Acid Calcium 10.0 Magnesium 1.7 Total Bilirubin 0.9 AST 54 H ALT 52 Alkaline Phosphatase 122 Total Protein 7.9 Albumin 4.5 Urine Color Urine Appearance Urine pH Ur Specific [place] Urine Protein Urine Glucose (UA) Urine Ketones Urine Blood Urine Nitrite Ur Leukocyte Esterase Urine WBC (Auto) Urine RBC (Auto) 07/07/16 07/07/16 17:15 18:50 WBC RBC Hgb Hct MCV MCH MCHC RDW Plt Count Seg Neutrophils % Lymphocytes % Monocytes % Eosinophils % Basophils % Absolute Neutrophils Absolute Lymphocytes Absolute Monocytes Absolute Eosinophils Absolute Basophils Sodium Potassium Chloride Carbon Dioxide Anion Gap BUN Creatinine Est GFR ( Amer) Est GFR (Non-Af Amer) Glucose Lactic Acid 2.8 H Calcium Magnesium Total Bilirubin AST ALT Alkaline Phosphatase Total Protein Albumin Urine Color YELLOW Urine Appearance CLOUDY Urine pH 5.0 Ur Specific [place] 1.013 Urine Protein 30 H Urine Glucose (UA) >=500 H Urine Ketones 20 H Urine Blood LARGE H Urine Nitrite NEGATIVE Ur Leukocyte Esterase LARGE H Urine WBC (Auto) >182 Urine RBC (Auto) 93 07/07/16 07/07/16 15:15 15:45 Creatine Kinase 998 H CK-MB (CK-2) 5.01 H Troponin I 0.067 EKG Comments: Sinus rhythm with prolonged QT and nonspecific ST segment changes. Prominent U waves noted at times Impressions: Chest X-Ray 07/07/16 14:22 IMPRESSION: NO ACUTE RADIOGRAPHIC FINDING IN THE CHEST. Head CT 07/07/16 14:22 IMPRESSION: CHRONIC CHANGES OF ATROPHY AND MICROVASCULAR ISCHEMIA. NO ACUTE PROCESS. Abdomen/Pelvis CT 07/07/16 16:51 IMPRESSION: 1. 2.7 cm calculus identified in the left renal pelvis. 1.3 cm calculus identified in the lower pole the left kidney. There is no CT evidence of hydronephrosis or urinary obstruction. 2. Mild sigmoid diverticulosis without acute inflammation. Assessment & Plan - Diagnosis (1) Ventricular tachycardia Is this a current diagnosis for this admission?: Yes (2) Ventricular fibrillation Is this a current diagnosis for this admission?: Yes (3) Implantable cardioverter-defibrillator (ICD) discharge Is this a current diagnosis for this admission?: Yes (4) Sepsis Qualifiers: Sepsis type: sepsis due to unspecified organism Qualified Code(s): A41.9 - Sepsis, unspecified organism Is this a current diagnosis for this admission?: Yes (5) Coronary artery disease Qualifiers: Coronary Disease-Associated Artery/Lesion type: [place] artery Associated angina: angina presence unspecified Is this a current diagnosis for this admission?: Yes (6) Diabetes Qualifiers: Diabetes mellitus type: type 2 Diabetes mellitus complication status: with unspecified complications Diabetes mellitus residential insulin use: 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 Patient also noted to have ventricular fibrillation, torsade type. These were mostly nonsustained but there were at least 2 sustained episodes noted which were terminated by defibrillator shock. Patient electrolytes were just mildly abnormal. It was felt that there could be a element of ischemia causing this and therefore as patient has known history of CAD and has primary care manager multicultural and client coordinator at [facility], it was felt that best option would be to transfer her to that center for further care. This was discussed with patient's relative, patient, ER physician and also attending physician. They agreed for such a transfer. This was therefore arranged by the ER physician. Patient has other comorbid diagnosis which were very significant and are being adequately managed. I did recommend magnesium drip, potassium supplementation. Patient to be treated with broad-spectrum antibiotics. - Time Time Spent: 30 to 50 Minutes - CODE STATUS was discussed, patient remains full code. Surrogate decision-maker patient's son and [id number]. Multiple medical problems were addressed. Critical Time spent with patient: Less than 15 minutes Medications reviewed and adjusted accordingly: Yes
== END 2016-07-07 22:35 | disposition short-term general hospital (02) ==
LOC: ER 14:20 → UNDOADMIN 19:18 → EH 19:18 → ER 22:35
DX: A41.9 Sepsis, unspecified organism (principal); R11.2 Nausea with vomiting, unspecified; R19.7 Diarrhea, unspecified; R53.1 Weakness; E87.6 Hypokalemia; I10 Essential (primary) hypertension; R26.2 Difficulty in walking, not elsewhere classified; Z86.73 Personal history of transient ischemic attack (TIA), and cerebral infarction without residual deficits
CPT/HCPCS: 93005; 99285; 99291; 96360; 96361; 96375; 96365; 36415; 87040; 87086; 82553; 82550; 83690; 83735; 85025; 85610; 85730; 80076; 80048; 80053; 81001; 84484; 83605; 71010; 70450; 74176; 93010; A9270 ×5; J2405; J7030; J2543; J1815; S0119

== ENCOUNTER 2016-07-20 14:00 | Emergency (ER) | payer MEDICARE, OTHER ==
--- NOTE | 2016-07-20 14:29 | ER Document Report ---
ED GI/ - General Stated Complaint: ABDOMINAL PAIN Mode of Arrival: Medic Information source: Patient, Transfer Record, Emergency Med Personnel TRAVEL OUTSIDE OF THE [place] IN LAST 30 DAYS: No - HPI Patient complains to provider of: Abdominal pain, Diarrhea Onset: Other - 2 WEEKS Timing/Duration: Constant, Persistent, Worse - TODAY Quality of pain: Cramping Severity at maximum: Moderate Severity in ED: Mild Context: denies: Bad food, Lifting, Out of the country travel, , Recent trauma Location: LUQ, LLQ, Suprapubic Vaginal bleeding (Compared to normal period): None Menstrual period history: Post-menopausal Exacerbated by: Denies Relieved by: Denies - Related Data Allergies/Adverse Reactions: iodine [Iodine] Allergy (Verified 02/08/16 15:38) Sulfa (Sulfonamide Antibiotics) Allergy (Verified 02/08/16 15:38) Fish Allergy (Severe, Uncoded 02/08/16 15:38) Past Medical History - General Information source: Patient, Transfer Record, Emergency Med Personnel - Social History Smoking Status: Never Smoker Cigarette use (# per day): No Chew tobacco use (# tins/day): No Frequency of alcohol use: None Drug Abuse: None Lives with: Senior Living Family History: CAD, Hypertension - Past Medical History Cardiac Medical History: Reports: Hx Congestive Heart Failure, Hx Heart Attack, Hx Hypercholesterolemia, Hx Hypertension Pulmonary Medical History: Reports: Hx COPD Denies: Hx Asthma, Hx Bronchitis, Hx Pneumonia, Hx Tuberculosis Neurological Medical History: Reports: Hx Cerebrovascular Accident - residual left lower extremity weakness. Denies: Hx Seizures Endocrine Medical History: Reports: Hx Diabetes Mellitus Type 2 Renal/ Medical History: Reports: Hx Kidney Stones. Denies: Hx End Stage Renal Disease, Hx Peritoneal Dialysis GI Medical History: Reports: Hx Gastroesophageal Reflux Disease, Other - GI BLEED. Denies: Hx Cirrhosis, Hx Ulcer Musculoskeltal Medical History: Reports None, Denies Hx Arthritis, Denies Hx Multiple Sclerosis Psychiatric Medical History: Reports: Hx Depression Denies: Hx Bipolar Disorder, Hx Schizophrenia Past Surgical History: Reports: Hx Cardiac Catheterization, Hx Cardiac Surgery - STENT placement, Hx Cholecystectomy, Hx Hysterectomy, Other - Pacemaker defibrillator placement - Immunizations Hx Diphtheria, Pertussis, Tetanus Vaccination: No Hx Pneumococcal Vaccination: 12/16/11 Review of Systems - Review of Systems Constitutional: No symptoms reported. denies: Chills, Fever EENT: No symptoms reported Cardiovascular: No symptoms reported Respiratory: No symptoms reported Gastrointestinal: See HPI Genitourinary: Dysuria Female Genitourinary: Post menopausal Musculoskeletal: No symptoms reported Skin: No symptoms reported Neurological/Psychological: No symptoms reported Physical Exam - Vital signs Vitals: Temp Pulse Resp BP Pulse Ox 97.5 F 65 18 128/76 H 99 07/20/16 14:18 07/20/16 14:18 07/20/16 14:18 07/20/16 14:18 07/20/16 14:18 Interpretation: Normal. No: Tachycardic, Tachypneic, Febrile - General General appearance: Appears well, Alert In distress: None - HEENT Head: Normocephalic Eyes: Normal Conjunctiva: Normal Ears: Normal Nasal: Normal Mouth/Lips: Normal Mucous membranes: Normal Pharynx: Normal Neck: Normal - Respiratory Respiratory status: No respiratory distress Breath sounds: Normal - Cardiovascular Rhythm: Regular Heart sounds: Normal auscultation Murmur: No - Abdominal Inspection: Normal Distension: No distension Bowel sounds: Normal Tenderness: Tender - MILD, SP AND LLQ, LESS LUQ - Back Back: Normal - Extremities General upper extremity: Normal inspection General lower extremity: Normal inspection - Neurological Neuro grossly intact: Yes Cognition: Normal Orientation: AAOx4 - Psychological Associated symptoms: Normal affect, Normal mood - Skin Skin Temperature: Warm Skin Moisture: Dry Skin Color: Normal Skin Turgor: Elastic Course - Re-evaluation Re-evalutation: 07/20/16 20:12 Patient is subjectively unchanged. Admits to minimal pain at present. Results of laboratory and radiographic studies discussed with patient and family. She will be medicated and returned to [facility] to continue rehabilitation. - Vital Signs Vital signs: Temp Pulse Resp BP Pulse Ox 97.9 F 91 18 111/63 99 07/20/16 18:34 07/20/16 18:34 07/20/16 18:34 07/20/16 18:34 07/20/16 18:34 - Laboratory Result Diagrams: 07/20/16 16:12 07/20/16 16:12 Laboratory results interpreted by me: 07/20/16 07/20/16 07/20/16 16:12 16:12 17:28 WBC 12.5 H MCV 79 L MCH 26.2 L RDW 16.4 H Absolute Neutrophils 8.4 H Carbon Dioxide 20 L BUN 23 H Est GFR (Non-Af Amer) 50 L Glucose 140 H Urine Ketones TRACE H Urine Blood MODERATE H Ur Leukocyte Esterase LARGE H Discharge - Discharge Clinical Impression: Abdominal pain Qualifiers: Abdominal location: epigastric Qualified Code(s): R10.13 - Epigastric pain Diverticulitis Qualifiers: Diverticulitis site: large intestine Diverticulitis bleeding: without bleeding Diverticulitis complication: without perforation or abscess Qualified Code(s): K57.32 - Diverticulitis of large intestine without perforation or abscess without bleeding Urinary tract infection Qualifiers: Urinary tract infection type: acute cystitis Hematuria presence: without hematuria Qualified Code(s): N30.00 - Acute cystitis without hematuria Condition: Stable Disposition: REHAB FACILITY Instructions: Diverticulitis ([facility]), Ciprofloxacin ([facility]), Urinary Tract Infection ([facility]) Additional Instructions: MEDS DIRECTED. DRINK PLENTY OF FLUIDS. FOLLOW UP WITH YOUR PRIMARY CARE PROVIDER OR RETURN TO E.R. IF PROBLEMS. Prescriptions: Ciprofloxacin HCl [Cipro 500 mg Tablet] 500 mg PO BID #20 tablet Referrals: PONCHO CONTRERAS MD [Primary Care Provider] - Follow up as needed
[2016-07-20 16:24] LABS: ABSOLUTE BASOPHILS # (AUTO) 0.2 10^3/uL (0.0-0.2); ABSOLUTE EOSINOPHILS # (AUTO) 0.2 10^3/uL (0.0-0.6); ABSOLUTE LYMPHOCYTES (AUTO) 2.9 10^3/uL (0.5-4.7); ABSOLUTE MONOCYTES (AUTO) 0.8 10^3/uL (0.1-1.4); ABSOLUTE NEUT (AUTO) 8.4 10^3/uL (1.7-8.2); BASOPHILS % (AUTO) 1.3 % (0-2); EOSINOPHILS % (AUTO) 1.7 % (0-6); HEMATOCRIT 38.7 % (36.0-47.0); HEMOGLOBIN 12.9 g/dL (12.0-15.5); LYMPHOCYTES % (AUTO) 23.5 % (13-45); MEAN CORPUSCULAR HEMOGLOBIN 26.2 pg (27.0-33.4); MEAN CORPUSCULAR HGB CONC 33.3 g/dL (32.0-36.0); MEAN CORPUSCULAR VOLUME 79 fl (80-97); MONOCYTES % (AUTO) 6.1 % (3-13); RED BLOOD COUNT 4.92 10^6/uL (3.72-5.28); RED CELL DISTRIBUTION WIDTH 16.4 % (11.5-14.0); SEGMENTED NEUTROPHILS % (AUTO) 67.4 % (42-78); WHITE BLOOD COUNT 12.5 10^3/uL (4.0-10.5)
[2016-07-20 16:34] LABS: PROTHROMBIN TIME 13.2 SEC (11.4-15.4)
[2016-07-20 16:35] LABS: PARTIAL THROMBOPLASTIN TIME 24.2 SEC (23.5-35.8)
[2016-07-20 16:38] LABS: ALANINE AMINOTRANSFERASE 38 U/L (9-52); ALBUMIN 3.7 g/dL (3.5-5.0); ALKALINE PHOSPHATASE 112 U/L (38-126); ANION GAP 16 (5-19); ASPARTATE AMINO TRANSFERASE 28 U/L (14-36); BILIRUBIN,DIRECT 0.4 mg/dL (0.0-0.4); BILIRUBIN,TOTAL 0.7 mg/dL (0.2-1.3); BLOOD UREA NITROGEN 23 mg/dL (7-20); CALCIUM 9.9 mg/dL (8.4-10.2); CARBON DIOXIDE 20 mmol/L (22-30); CHLORIDE 105 mmol/L (98-107); GLUCOSE 140 mg/dL (75-110); POTASSIUM 4.9 mmol/L (3.6-5.0); SODIUM 140.9 mmol/L (137-145); TOTAL PROTEIN 6.6 g/dL (6.3-8.2)
[2016-07-20 17:51] LABS: AMORPHOUS SEDIMENT,URINE TRACE /HPF; APPEARANCE,URINE CLOUDY; BILIRUBIN,URINE NEGATIVE (NEGATIVE); GLUCOSE, URINE NEGATIVE (NEGATIVE); KETONES,URINE TRACE mg/dL (NEGATIVE); LEUKOCYTE ESTERASE,URINE LARGE (NEGATIVE); NITRITE,URINE NEGATIVE (NEGATIVE); PROTEIN,URINE NEGATIVE (NEGATIVE); UROBILINOGEN,URINE NEGATIVE mg/dL (<2.0)
[2016-07-20] MEDS ORDERED: LEVOFLOXACIN RTU 750 MG/D5W 150 ML IV ONE (18:14)
[2016-07-20] MEDS ORDERED: LEVOFLOXACIN 750 MG TABLET PO ONE (21:09)
[2016-07-20] MEDS ORDERED: ONDANSETRON 4 MG TAB.RAPDIS PO ONE (21:11)
[2016-07-20] MEDS ORDERED: METRONIDAZOLE 500 MG TABLET PO ONE (21:11)
[2016-07-20 22:21] VITALS: BP 105/60
== END 2016-07-20 22:15 ==
LOC: ER 14:00
DX: K57.32 Diverticulitis of large intestine without perforation or abscess without bleeding (principal); N30.00 Acute cystitis without hematuria; R19.7 Diarrhea, unspecified; I25.2 Old myocardial infarction; I10 Essential (primary) hypertension; J44.9 Chronic obstructive pulmonary disease, unspecified; Z88.2 Allergy status to sulfonamides; Z91.013 Allergy to seafood; Z86.73 Personal history of transient ischemic attack (TIA), and cerebral infarction without residual deficits; Z87.442 Personal history of urinary calculi; Z87.19 Personal history of other diseases of the digestive system; Z98.61 Coronary angioplasty status; Z95.810 Presence of automatic (implantable) cardiac defibrillator; Z90.49 Acquired absence of other specified parts of digestive tract; Z90.710 Acquired absence of both cervix and uterus
CPT/HCPCS: 99285; 51701; 96365; 96366; 36415; 87045; 87086; 87205; 83690; 85025; 85610; 85730; 82272; 80053; 81001; 87493 ×2; 74022; A9270 ×3; J1956; S0119

== ENCOUNTER 2016-12-16 12:07 | Inpatient (IN) | payer MEDICARE, OTHER ==
--- NOTE | 2016-12-16 12:28 | ER Document Report ---
ED General - General Stated Complaint: BLOOD PRESSURE ISSUES Time Seen by Provider: 12/16/16 12:17 Mode of Arrival: Medic Information source: Patient, Relative, Emergency Med Personnel TRAVEL OUTSIDE OF THE [place] IN LAST 30 DAYS: No - HPI Onset: This morning - WAS FOUND BY DAUGHTER HYPERTENSIVE, COMPLETE LEFT-SIDED PARALYSIS. Onset/Duration: Persistent Quality of pain: Dull Severity: Moderate Associated symptoms: Weakness - L. HEMIPLEGIA Exacerbated by: Denies Relieved by: Denies Similar symptoms previously: Yes - PRIOR CVA W/ LEFT SIDE WEAKNESS. Recently seen / treated by doctor: No - Related Data Allergies/Adverse Reactions: iodine [Iodine] Allergy (Verified 12/16/16 13:14) Sulfa (Sulfonamide Antibiotics) Allergy (Verified 12/16/16 13:14) Fish Allergy (Severe, Uncoded 12/16/16 13:14) Home Medications: Current Home Medications Atorvastatin Calcium 80 mg PO DAILY 12/16/16 [History] Carvedilol 6.25 mg PO BID 12/16/16 [History] Erythromycin Base [Erythromycin] 1 gm OP ASDIR PRN 12/16/16 [History] Ezetimibe 10 mg PO DAILY 12/16/16 [History] Gabapentin 100 mg PO TID 12/16/16 [History] Lamotrigine 25 mg PO ASDIR PRN 12/16/16 [History] Levetiracetam 500 mg PO BID 12/16/16 [History] Pantoprazole Sodium 40 mg PO ASDIR PRN 12/16/16 [History] Sertraline HCl 25 mg PO DAILY 12/16/16 [History] Past Medical History - General Information source: Patient, Relative - Social History Smoking Status: Unknown if Ever Smoked Cigarette use (# per day): No Chew tobacco use (# tins/day): No Frequency of alcohol use: None Drug Abuse: None Lives with: Family Family History: CAD, Hypertension - Past Medical History Cardiac Medical History: Reports: Hx Congestive Heart Failure, Hx Heart Attack, Hx Hypercholesterolemia, Hx Hypertension Pulmonary Medical History: Reports: Hx COPD Denies: Hx Asthma, Hx Bronchitis, Hx Pneumonia, Hx Tuberculosis Neurological Medical History: Reports: Hx Cerebrovascular Accident - residual left lower extremity weakness. Denies: Hx Seizures Endocrine Medical History: Reports: Hx Diabetes Mellitus Type 2 Renal/ Medical History: Reports: Hx Kidney Stones. Denies: Hx End Stage Renal Disease, Hx Peritoneal Dialysis GI Medical History: Reports: Hx Gastroesophageal Reflux Disease. Denies: Hx Cirrhosis, Hx Ulcer Musculoskeltal Medical History: Denies Hx Arthritis, Denies Hx Multiple Sclerosis Psychiatric Medical History: Reports: Hx Depression Denies: Hx Bipolar Disorder, Hx Schizophrenia Past Surgical History: Reports: Hx Cardiac Catheterization, Hx Cardiac Surgery - STENT placement, Hx Cholecystectomy, Hx Hysterectomy, Hx Pacemaker, Other - Pacemaker defibrillator placement - Immunizations Hx Diphtheria, Pertussis, Tetanus Vaccination: No Hx Pneumococcal Vaccination: 12/16/11 Review of Systems - Review of Systems Constitutional: No symptoms reported. denies: Fever EENT: No symptoms reported Cardiovascular: See HPI Respiratory: No symptoms reported Gastrointestinal: No symptoms reported. denies: Nausea, Vomiting Genitourinary: No symptoms reported Female Genitourinary: Post menopausal Musculoskeletal: See HPI, Back pain Skin: No symptoms reported Neurological/Psychological: See HPI Physical Exam - Vital signs Vitals: Pulse Resp BP Pulse Ox 90 20 185/93 H 100 12/16/16 12:10 12/16/16 12:10 12/16/16 12:10 12/16/16 12:10 Interpretation: Hypertensive. No: Tachycardic, Tachypneic - General General appearance: Anxious In distress: Mild - HEENT Head: Normocephalic Eyes: Normal Conjunctiva: Normal Ears: Normal Nasal: Normal Mouth/Lips: Normal Mucous membranes: Normal - Respiratory Respiratory status: No respiratory distress Breath sounds: Normal - Cardiovascular Rhythm: Regular Heart sounds: Normal auscultation Murmur: No - Abdominal Inspection: Normal Distension: No distension Bowel sounds: Hypoactive - Back Back: CVA tenderness - LEFT - Extremities General upper extremity: Normal inspection General lower extremity: Normal inspection - Neurological Neuro grossly intact: No - LEFT HEMIPLEGIA, PROFOUND AT FIRST, IMPROVED AFTER BP Rx Cognition: Normal Orientation: AAOx4 Motor strength normal: No: LUE, LLE - Psychological Associated symptoms: Agitated, Anxious - Skin Skin Temperature: Warm Skin Moisture: Dry Skin Color: Normal Skin Turgor: Elastic Course - Vital Signs Vital signs: Temp Pulse Resp BP Pulse Ox 99.0 F 90 14 176/81 H 100 12/16/16 12:16 12/16/16 12:10 12/16/16 14:31 12/16/16 14:31 12/16/16 14:31 - Laboratory Result Diagrams: 12/16/16 12:45 12/16/16 12:45 Laboratory results interpreted by me: 12/16/16 12/16/16 12/16/16 12:45 12:45 13:55 RDW 14.5 H Seg Neutrophils % 84.7 H Lymphocytes % 12.3 L Monocytes % 2.4 L Potassium 2.6 L* BUN 6 L Glucose 333 H Direct Bilirubin 0.5 H Urine Protein 30 H Urine Glucose (UA) >=500 H Urine Ketones 80 H Urine Blood SMALL H Ur Leukocyte Esterase LARGE H - Diagnostic Test Radiology reviewed: Image reviewed, Reports reviewed - EKG Interpretation by Me EKG shows normal: Sinus rhythm. abnormal: ST-T Waves - LAT. T ABNLS, NS Rate: Normal Rhythm: NSR When compared to previous EKG there are: No significant change - Consults DR. CONTRERAS Time consulted: 14:26 Consulted provider: will see as inpatient Discharge - Discharge Clinical Impression: Pyelonephritis, acute, Electrolyte abnormality, Hypertensive urgency Condition: Fair Disposition: ADMITTED INPATIENT Unit Admitted: IMCU Referrals: PONCHO CONTRERAS MD [Primary Care Provider] - Follow up as needed
[2016-12-16] MEDS ORDERED: LABETALOL HCL INJ 20 MG/4 ML DISP.SYRIN IV ONE (12:36)
--- NOTE | 2016-12-16 12:53 | RADIOLOGY REPORT (SQ) ---
EXAM DESCRIPTION: CT HEAD WITHOUT COMPLETED DATE/TIME: 12/16/2016 12:43 pm REASON FOR STUDY: WORSENED LEFT HEMIPLEGIA COMPARISON: None. TECHNIQUE: Axial images acquired through the brain without intravenous contrast. Images reviewed wi th bone, brain and subdural windows. Images stored on PACS. All CT scanners at this facility use dose modulation, iterative reconstruction, and/or weight based d osing when appropriate to reduce radiation dose to as low as reasonably achievable (ALARA). [facility]: Dose Right [facility]: CareDose [facility]: Dose Right [facility]: Teradose 4D [facility]: [employer] RADIATION DOSE: Up-to-date CT equipment and radiation dose reduction techniques were employed. CTDIv ol: 64.6 mGy. DLP: 1163 mGy-cm.mGy. LIMITATIONS: None. FINDINGS: VENTRICLES: Prominent. CEREBRUM: No masses. No hemorrhage. No midline shift. Old right MCA territory infarct. Several la cunar infarcts. Areas of low density in the white matter most likely due to chronic micro-vascular i schemic change. No evidence for acute infarction. CEREBELLUM: No masses. No hemorrhage. No alteration of density. No evidence for acute infarction. EXTRAAXIAL SPACES: Age-related involutional change. No fluid collections. No masses. ORBITS AND GLOBE: No intra- or extraconal masses. Normal contour of globe without masses. CALVARIUM: No fracture. PARANASAL SINUSES: No fluid or mucosal thickening. SOFT TISSUES: No mass or hematoma. OTHER: No other significant finding. IMPRESSION: Chronic ischemic changes. EVIDENCE OF ACUTE STROKE: NO. TECHNICAL DOCUMENTATION: JOB ID: [id number] Quality ID # [id number]: Final reports with documentation of one or more dose reduction techniques (e.g., Au tomated exposure control, adjustment of the mA and/or kV according to patient size, use of iterative reconstruction technique) 2010 [employer]- All Rights Reserved
[2016-12-16 13:09] LABS: ABSOLUTE LYMPHOCYTES (AUTO) 1.1 10^3/uL (0.5-4.7); ABSOLUTE MONOCYTES (AUTO) 0.2 10^3/uL (0.1-1.4); ABSOLUTE NEUT (AUTO) 7.7 10^3/uL (1.7-8.2); BASOPHILS % (AUTO) 0.5 % (0-2); EOSINOPHILS % (AUTO) 0.1 % (0-6); HEMATOCRIT 42.2 % (36.0-47.0); HEMOGLOBIN 14.3 g/dL (12.0-15.5); HGB HCT DIFFERENCE 0.7; LYMPHOCYTES % (AUTO) 12.3 % (13-45); MEAN CORPUSCULAR HEMOGLOBIN 27.2 pg (27.0-33.4); MEAN CORPUSCULAR VOLUME 80 fl (80-97); MONOCYTES % (AUTO) 2.4 % (3-13); RED BLOOD COUNT 5.28 10^6/uL (3.72-5.28); RED CELL DISTRIBUTION WIDTH 14.5 % (11.5-14.0); SEGMENTED NEUTROPHILS % (AUTO) 84.7 % (42-78); WHITE BLOOD COUNT 9.1 10^3/uL (4.0-10.5)
[2016-12-16 13:15] LABS: PROTHROMBIN TIME 13.1 SEC (11.4-15.4)
[2016-12-16 13:26] LABS: ALANINE AMINOTRANSFERASE 31 U/L (9-52); ALBUMIN 4.1 g/dL (3.5-5.0); ALKALINE PHOSPHATASE 123 U/L (38-126); ANION GAP 15 (5-19); ASPARTATE AMINO TRANSFERASE 29 U/L (14-36); BILIRUBIN,DIRECT 0.5 mg/dL (0.0-0.4); BLOOD UREA NITROGEN 6 mg/dL (7-20); CALCIUM 9.9 mg/dL (8.4-10.2); CARBON DIOXIDE 27 mmol/L (22-30); CHLORIDE 98 mmol/L (98-107); CREATINE KINASE 95 U/L (30-135); CREATININE RESULT 0.93 mg/dL (0.52-1.25); GLUCOSE 333 mg/dL (75-110); SODIUM 139.5 mmol/L (137-145); TOTAL PROTEIN 7.6 g/dL (6.3-8.2)
[2016-12-16 13:29] LABS: POTASSIUM 2.6 mmol/L (3.6-5.0)
[2016-12-16] MEDS ORDERED: POTASSI CL 20 MEQ/50 ML RIDER 20 MEQ/50 ML RTUPB IV ONE (13:33)
[2016-12-16 13:37] LABS: CREATINE KINASE MB 1.16 ng/mL (<4.55); TROPONIN I 0.016 ng/mL
[2016-12-16] MEDS ORDERED: CEFTRIAXONE 1 GM/D5W RTU 1 GM/50 ML RTUPB IV ONE (14:18)
[2016-12-16 14:28] LABS: APPEARANCE,URINE TURBID; BILIRUBIN,URINE NEGATIVE (NEGATIVE); GLUCOSE, URINE >=500 mg/dL (NEGATIVE); KETONES,URINE 80 mg/dL (NEGATIVE); LEUKOCYTE ESTERASE,URINE LARGE (NEGATIVE); NITRITE,URINE NEGATIVE (NEGATIVE); PROTEIN,URINE 30 mg/dL (NEGATIVE); URINE SPECIFIC GRAVITY 1.025; UROBILINOGEN,URINE NEGATIVE mg/dL (<2.0)
--- NOTE | 2016-12-16 14:35 | EKG REPORT ---
SEVERITY:- BORDERLINE ECG - SINUS RHYTHM NONSPECIFIC T ABNORMALITIES, LATERAL LEADS : Confirmed by: Rosa Maria Olivarez MD 16-Dec-2016 14:34:34
[2016-12-16] MEDS ORDERED: MORPHINE SULFATE 10 MG/ML INJ IV ONE (14:39)
--- NOTE | 2016-12-16 15:33 | RADIOLOGY REPORT (SQ) ---
EXAM DESCRIPTION: CHEST SINGLE VIEW COMPLETED DATE/TIME: 12/16/2016 2:53 pm REASON FOR STUDY: HYPERTENSIVE CRISIS COMPARISON: 07/07/2016 EXAM PARAMETERS: NUMBER OF VIEWS: One view. TECHNIQUE: Single frontal radiographic view of the chest acquired. RADIATION DOSE: NA LIMITATIONS: None. FINDINGS: LUNGS AND PLEURA: No opacities, masses or pneumothorax. No pleural effusion. MEDIASTINUM AND HILAR STRUCTURES: No masses. Contour normal. HEART AND VASCULAR STRUCTURES: Stable heart size. BONES: No acute findings. HARDWARE: Stable position of pacemaker. OTHER: No other significant finding. IMPRESSION: NO ACUTE RADIOGRAPHIC FINDING IN THE CHEST. TECHNICAL DOCUMENTATION: JOB ID: [id number]
[2016-12-16] MEDS ORDERED: ONDANSETRON HCL INJ/PF 4 MG/2 ML SDV IV PRN (19:08)
[2016-12-16] MEDS ORDERED: GLUCAGON,HUMAN RECOMB 1 MG INJ IM PRN (19:08)
[2016-12-16] MEDS ORDERED: ACETAMINOPHEN 325 MG TABLET PO PRN (19:08)
[2016-12-16] MEDS ORDERED: DEXTROSE 50%-WATER 25 GM/50 ML DISP.SYRIN IV PRN ×2 (19:08)
[2016-12-16] MEDS ORDERED: DEXTROSE 40% GEL 15 GM TUBE PO PRN ×2 (19:08)
[2016-12-16] MEDS ORDERED: LAMOTRIGINE 25 MG PO PRN (19:13)
[2016-12-16] MEDS ORDERED: (PENDING PHARMACY ID) (Losartan/Hydrochlorothiazide [Hyzaar 100-25 Tablet] 1 EACH) PO SCH (19:15)
--- NOTE | 2016-12-16 19:46 | PDOC H&P ---
History of Present Illness Admission Date/PCP: 12/16/16 16:22 PONCHO BEN Patient complains of: Elevated blood pressure, change in mental status History of Present Illness: RICARDO HOLM is a 66 year old female known to my practice brought to the ED by EMS crew due to elevated blood pressure and worsening left sided weakness. She has history of stroke with left sided weakness, lower extremity more the upper extremity. She was found with elevated blood pressure upon arrival in the ED with need for IV Labetalol administration.Her head CT scan did not reveal any acute findings. She demonstrated left CVA tenderness with abnormal Urinalysis suggestive of UTI with pyelonephritis. There was associated hypokalemia. She was advised hospitalization for further evaluation and management. 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 Past Medical History Cardiac Medical History: Reports: Congestive Heart Failure, Myocardial Infarction, Hyperlipidema, Hypertension Pulmonary Medical History: Reports: Chronic Obstructive Pulmonary Disease (COPD) Denies: Asthma, Bronchitis, Pneumonia, Tuberculosis Neurological Medical History: Denies: Seizures Endocrine Medical History: Reports: Diabetes Mellitus Type 2 Renal/ Medical History: Denies: End Stage Renal Disease GI Medical History: Reports: Gastroesophageal Reflux Disease Denies: Cirrhosis Musculoskeltal Medical History: Denies: Arthritis Psychiatric Medical History: Reports: Depression Denies: Bipolar Disorder Hematology: Reports: Anemia Denies: Bleeding Tendencies Past Surgical History Past Surgical History: Reports: Cardiac Catheterization, Cholecystectomy, Hysterectomy, Pacemaker, Other - Pacemaker defibrillator placement Social History Lives with: Family Smoking Status: Unknown if Ever Smoked Hx Prescription Drug Abuse: No - Advance Directive Resuscitation Status: Full Code Family History Family History: CAD, Hypertension Parental Family History Reviewed: Yes Children Family History Reviewed: Yes Sibling(s) Family History Reviewed.: Yes Medication/Allergy Allergies/Adverse Reactions: iodine [Iodine] Allergy (Verified 12/16/16 13:14) Sulfa (Sulfonamide Antibiotics) Allergy (Verified 12/16/16 13:14) Fish Allergy (Severe, Uncoded 12/16/16 13:14) Review of Systems Constitutional: PRESENT: chills Eyes: ABSENT: visual disturbances Ears: ABSENT: hearing changes Nose, Mouth, and Throat: ABSENT: as per HPI, headache(s), mouth pain, sore throat, vertigo, other Cardiovascular: ABSENT: chest pain, dyspnea on exertion, edema, orthropnea, palpitations Respiratory: ABSENT: cough, hemoptysis Gastrointestinal: ABSENT: abdominal pain, constipation, diarrhea, hematemesis, hematochezia, nausea, vomiting Genitourinary: PRESENT: difficulty urinating - intermittently at home. ABSENT: dysuria, hematuria, nocturia Integumentary: PRESENT: pruritus, rash - perineal region Neurological: PRESENT: abnormal gait - due to left sided paresis, weakness - left sided paresis Psychiatric: PRESENT: depression Endocrine: ABSENT: cold intolerance, flushing, heat intolerance, polydipsia, polyphagia, polyuria Hematologic/Lymphatic: ABSENT: easy bleeding, easy bruising, lymphadenopathy Allergic/Immunologic: ABSENT: seasonal rhinorrhea Physical Exam Vital Signs: Temp Pulse Resp BP Pulse Ox 98.0 F 73 21 H 156/77 H 100 12/16/16 18:13 12/16/16 18:13 12/16/16 18:13 12/16/16 18:13 12/16/16 18:13 General appearance: PRESENT: no acute distress, well-developed, well-nourished Head exam: PRESENT: atraumatic, normocephalic Eye exam: PRESENT: conjunctiva pink, EOMI, PERRLA. ABSENT: scleral icterus Ear exam: PRESENT: normal external ear exam Mouth exam: PRESENT: moist, tongue midline Teeth exam: PRESENT: edentulous Throat exam: ABSENT: post pharyngeal erythema, tonsillar erythema, tonsillar exudate, tonsillogmegaly, other Neck exam: PRESENT: full ROM. ABSENT: carotid bruit, JVD, lymphadenopathy, thyromegaly Respiratory exam: PRESENT: clear to auscultation fred, decreased breath sounds - at lung bases, symmetrical Cardiovascular exam: PRESENT: RRR. ABSENT: diastolic murmur, rubs, systolic murmur Pulses: PRESENT: normal dorsalis pedis pul, +2 pedal pulses bilateral Vascular exam: PRESENT: normal capillary refill. ABSENT: pallor GI/Abdominal exam: PRESENT: normal bowel sounds, soft, tenderness - left CVA region. ABSENT: distended, guarding, mass, organolmegaly, rebound Rectal exam: PRESENT: deferred Gentrourinary exam: PRESENT: erythema - with excuriation in the perineal region and secondary denution of te skin Extremities exam: ABSENT: pedal edema Musculoskeletal exam: PRESENT: normal inspection Neurological exam: PRESENT: alert, awake, oriented to person, oriented to place , oriented to time, oriented to situation, CN II-XII grossly intact. ABSENT: motor sensory deficit, normal gait - due to her left hemiparesis Psychiatric exam: PRESENT: appropriate affect, normal mood. ABSENT: homicidal ideation, suicidal ideation Skin exam: PRESENT: erythema, rash - in perineal region. ABSENT: jaundice, pallor Results Laboratory Results: I reviewed her recent lab results on [employer] and form significant part of my medical decision making. Impressions: Head CT 12/16/16 12:28 IMPRESSION: Chronic ischemic changes. EVIDENCE OF ACUTE STROKE: NO. Chest X-Ray 12/16/16 14:18 IMPRESSION: NO ACUTE RADIOGRAPHIC FINDING IN THE CHEST. Assessment & Plan - Diagnosis (1) Hypertensive urgency Is this a current diagnosis for this admission?: Yes Plan: See admitting attending physician orders. (2) Toxic metabolic encephalopathy Is this a current diagnosis for this admission?: Yes Plan: See admitting attending physician orders. (3) Pyelonephritis, acute Is this a current diagnosis for this admission?: Yes Plan: See admitting attending physician orders. (4) Hypokalemia due to inadequate potassium intake Is this a current diagnosis for this admission?: Yes Plan: See admitting attending physician orders. (5) Diabetes mellitus type 2 in obese Is this a current diagnosis for this admission?: Yes Plan: See admitting attending physician orders. (6) Candidal skin infection Is this a current diagnosis for this admission?: Yes Plan: See admitting attending physician orders. - Time Time Spent: Greater than 70 Minutes Medications reviewed and adjusted accordingly: Yes Anticipated discharge: Home with Homehealth Within: Other - Inpatient Certification Based on my medical assessment, after consideration of the patient's comorbidities, presenting symptoms, or acuity I expect that the services needed warrant INPATIENT care.: Yes I certify that my determination is in accordance with my understanding of Medicare's requirements for reasonable and necessary INPATIENT services [42 CFR 412.3e].: Yes Medical Necessity: Need Close Monitoring Due to Risk of Patient Decompensation, Need For IV Fluids, Need For Continuous Telemetry Monitoring, Need for IV Antibiotics, Risk of Complication if Not Cared For in Hospital 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
[2016-12-16] MEDS ORDERED: ENOXAPARIN SODIUM INJ 40 MG/0.4 ML DISP.SYRIN SUBCUT ONE (20:30)
[2016-12-16] MEDS ORDERED: LOSARTAN POTASSIUM 50 MG TABLET PO ONE (21:00)
[2016-12-16 21:01] LABS: ANION GAP 12 (5-19); BLOOD UREA NITROGEN 8 mg/dL (7-20); CALCIUM 9.6 mg/dL (8.4-10.2); CARBON DIOXIDE 29 mmol/L (22-30); CHLORIDE 100 mmol/L (98-107); CREATININE RESULT 0.88 mg/dL (0.52-1.25); GLUCOSE 326 mg/dL (75-110); MAGNESIUM 1.5 mg/dL (1.6-2.3); SODIUM 140.9 mmol/L (137-145)
[2016-12-16 21:24] LABS: POTASSIUM 3.8 mmol/L (3.6-5.0)
[2016-12-16] MEDS: ATORVASTATIN CALCIUM 80 MG TABLET PO SCH (21:43)
[2016-12-16] MEDS: GABAPENTIN 100 MG CAPSULE PO SCH (21:44)
[2016-12-16] MEDS: CARVEDILOL 6.25 MG TABLET PO SCH (21:44)
[2016-12-16] MEDS: LEVETIRACETAM 500 MG TABLET PO SCH (21:44)
[2016-12-16] MEDS: LAMOTRIGINE 25 MG TAB.CHEW PO SCH (22:42)
[2016-12-16] MEDS: NYSTATIN CREAM 15 GM TP SCH (22:42)
[2016-12-16] MEDS: INSULIN LISPRO 100 UNIT/ML 3 ML VIAL SUBCUT PRN (22:42)
[2016-12-17] MEDS: GABAPENTIN 100 MG CAPSULE PO SCH ×3 (05:25→21:52)
[2016-12-17] MEDS: LANSOPRAZOLE 30 MG TAB.RAP.DR PO SCH (05:25)
[2016-12-17 05:34] LABS: ABSOLUTE BASOPHILS # (AUTO) 0.1 10^3/uL (0.0-0.2); ABSOLUTE LYMPHOCYTES (AUTO) 1.9 10^3/uL (0.5-4.7); ABSOLUTE MONOCYTES (AUTO) 0.6 10^3/uL (0.1-1.4); ABSOLUTE NEUT (AUTO) 9.1 10^3/uL (1.7-8.2); BASOPHILS % (AUTO) 1.2 % (0-2); EOSINOPHILS % (AUTO) 0.1 % (0-6); LYMPHOCYTES % (AUTO) 15.8 % (13-45); MEAN CORPUSCULAR HEMOGLOBIN 27.1 pg (27.0-33.4); MEAN CORPUSCULAR HGB CONC 34.3 g/dL (32.0-36.0); MEAN CORPUSCULAR VOLUME 79 fl (80-97); MONOCYTES % (AUTO) 5.5 % (3-13); RED BLOOD COUNT 4.81 10^6/uL (3.72-5.28); RED CELL DISTRIBUTION WIDTH 14.3 % (11.5-14.0); SEGMENTED NEUTROPHILS % (AUTO) 77.4 % (42-78); WHITE BLOOD COUNT 11.7 10^3/uL (4.0-10.5)
[2016-12-17 06:01] LABS: ALANINE AMINOTRANSFERASE 32 U/L (9-52); ALBUMIN 3.4 g/dL (3.5-5.0); ALKALINE PHOSPHATASE 89 U/L (38-126); ANION GAP 12 (5-19); ASPARTATE AMINO TRANSFERASE 18 U/L (14-36); BILIRUBIN,DIRECT 0.5 mg/dL (0.0-0.4); BILIRUBIN,TOTAL 1.1 mg/dL (0.2-1.3); BLOOD UREA NITROGEN 9 mg/dL (7-20); CALCIUM 9.7 mg/dL (8.4-10.2); CARBON DIOXIDE 27 mmol/L (22-30); CHLORIDE 102 mmol/L (98-107); CREATININE RESULT 0.92 mg/dL (0.52-1.25); GLUCOSE 274 mg/dL (75-110); POTASSIUM 3.2 mmol/L (3.6-5.0); SODIUM 140.8 mmol/L (137-145); TOTAL PROTEIN 6.4 g/dL (6.3-8.2)
[2016-12-17] MEDS: INSULIN LISPRO 100 UNIT/ML 3 ML VIAL SUBCUT PRN ×4 (07:52→23:31)
[2016-12-17] MEDS: ENOXAPARIN SODIUM INJ 40 MG/0.4 ML DISP.SYRIN SUBCUT SCH (09:28)
[2016-12-17] MEDS: ASPIRIN 81 MG TABLET, ENT COATED PO SCH (09:29)
[2016-12-17] MEDS: LAMOTRIGINE 25 MG TAB.CHEW PO SCH ×2 (09:29→21:52)
[2016-12-17] MEDS: LEVETIRACETAM 500 MG TABLET PO SCH ×2 (09:29→21:52)
[2016-12-17] MEDS: LOSARTAN POTASSIUM 50 MG TABLET PO SCH (09:29)
[2016-12-17] MEDS: CARVEDILOL 6.25 MG TABLET PO SCH ×2 (09:30→21:52)
[2016-12-17] MEDS: EZETIMIBE 10 MG TABLET PO SCH (09:30)
[2016-12-17] MEDS: SERTRALINE HCL 50 MG TABLET PO SCH (09:31)
[2016-12-17] MEDS: NYSTATIN CREAM 15 GM TP SCH ×2 (09:31→21:52)
[2016-12-17] MEDS: NORMAL SALINE 1000 ML 1,000 ML IV PRN (09:50)
[2016-12-17] MEDS ORDERED: (PENDING PHARMACY ID) (Sertraline Hcl [Sertraline Hcl] 25 MG) PO SCH (10:00)
[2016-12-17] MEDS ORDERED: INFLUENZA ADLT QUAD (36MOS+) 2017-18 VAC 0.5 ML SYR IM PRN (10:01)
--- NOTE | 2016-12-17 17:59 | PDOC PROGRESS REPORT ---
Subjective Progress Note for:: 12/17/16 Subjective:: Reported involuntary twitching movement in right lower extremity. Weakness is back to baseline. No seizure activity. No fever or chills. No nausea or vomiting. No chest pain or difficulty with breathing. Oral intake remain fair. Back pain is better. Remain on IV fluid and antibiotic therapy. Physical Exam Vital Signs: Temp Pulse Resp BP Pulse Ox 98.2 F 53 L 18 124/60 92 12/17/16 11:37 12/17/16 14:00 12/17/16 11:37 12/17/16 11:37 12/17/16 11:37 Intake & Output 12/16/16 12/17/16 12/18/16 06:59 06:59 06:59 Intake Total 854 Balance 854 Weight 76.1 kg General appearance: PRESENT: no acute distress, cooperative Head exam: PRESENT: atraumatic, normocephalic Eye exam: PRESENT: conjunctiva pink, EOMI, PERRLA. ABSENT: conjunctiva pale, scleral icterus Mouth exam: PRESENT: moist Teeth exam: PRESENT: edentulous Respiratory exam: PRESENT: clear to auscultation fred, decreased breath sounds - at lung bases Cardiovascular exam: PRESENT: RRR. ABSENT: diastolic murmur, rubs, systolic murmur Vascular exam: PRESENT: normal capillary refill. ABSENT: pallor GI/Abdominal exam: PRESENT: normal bowel sounds, soft. ABSENT: distended, guarding, mass, organolmegaly, rebound, tenderness Extremities exam: ABSENT: pedal edema Musculoskeletal exam: PRESENT: deformity - due to arthritis joint involvement Neurological exam: PRESENT: alert, awake, oriented to person, oriented to place , oriented to time, oriented to situation, abnormal gait - related to her right lower extremity paresis, CN II-XII grossly intact. ABSENT: motor sensory deficit Psychiatric exam: PRESENT: appropriate affect, normal mood. ABSENT: homicidal ideation, suicidal ideation Skin exam: PRESENT: dry, intact, rash - groin and perineal region related to yeast infection, warm. ABSENT: cyanosis Results Laboratory Results: 12/17/16 04:40 12/17/16 04:40 12/16/16 12/17/16 12/17/16 20:30 04:40 04:40 WBC 11.7 H RBC 4.81 Hgb 13.0 Hct 38.0 MCV 79 L MCH 27.1 MCHC 34.3 RDW 14.3 H Plt Count 194 Seg Neutrophils % 77.4 Lymphocytes % 15.8 Monocytes % 5.5 Eosinophils % 0.1 Basophils % 1.2 Absolute Neutrophils 9.1 H Absolute Lymphocytes 1.9 Absolute Monocytes 0.6 Absolute Eosinophils 0.0 Absolute Basophils 0.1 Sodium 140.9 140.8 Potassium 3.8 D 3.2 L Chloride 100 102 Carbon Dioxide 29 27 Anion Gap 12 12 BUN 8 9 Creatinine 0.88 0.92 Est GFR ( Amer) > 60 > 60 Est GFR (Non-Af Amer) > 60 > 60 Glucose 326 H 274 H Calcium 9.6 9.7 Magnesium 1.5 L Total Bilirubin 1.1 AST 18 ALT 32 Alkaline Phosphatase 89 Total Protein 6.4 Albumin 3.4 L Impressions: Head CT 12/16/16 12:28 IMPRESSION: Chronic ischemic changes. EVIDENCE OF ACUTE STROKE: NO. Chest X-Ray 12/16/16 14:18 IMPRESSION: NO ACUTE RADIOGRAPHIC FINDING IN THE CHEST. Assessment & Plan - Diagnosis (1) Hypertensive urgency Is this a current diagnosis for this admission?: Yes (2) Toxic metabolic encephalopathy Is this a current diagnosis for this admission?: Yes (3) Pyelonephritis, acute Is this a current diagnosis for this admission?: Yes (4) Hypokalemia due to inadequate potassium intake Is this a current diagnosis for this admission?: Yes (5) Diabetes mellitus type 2 in obese Is this a current diagnosis for this admission?: Yes (6) Candidal skin infection Is this a current diagnosis for this admission?: Yes (7) Lindy cystitis Is this a current diagnosis for this admission?: Yes Plan: See attending physician orders. - Time Time Spent with patient: 25-34 minutes Medications reviewed and adjusted accordingly: Yes Anticipated discharge: Home with Homehealth Within: Other - Inpatient Certification Based on my medical assessment, after consideration of the patient's comorbidities, presenting symptoms, or acuity I expect that the services needed warrant INPATIENT care.: Yes I certify that my determination is in accordance with my understanding of Medicare's requirements for reasonable and necessary INPATIENT services [42 CFR 412.3e].: Yes Medical Necessity: Need Close Monitoring Due to Risk of Patient Decompensation, Need For IV Fluids, Need For Continuous Telemetry Monitoring, Need for IV Antibiotics, Risk of Complication if Not Cared For in Hospital 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 Patient will receive oral potassium replacement along with IV Magnesium rider for electrolytes derangement. Remain on IV Ceftriaxone coverage for possible bacterial pyelonephritis. Follow up on blood culture findings.
[2016-12-17] MEDS: CEFTRIAXONE 2 GM/D5W RTU 2 GM/50 ML RTUPB IV SCH (18:05)
[2016-12-17] MEDS: POTASSIUM CHLORIDE 10 MEQ TABLET.SA PO SCH ×2 (18:30→21:51)
[2016-12-17] MEDS: ATORVASTATIN CALCIUM 80 MG TABLET PO SCH (21:52)
[2016-12-17] MEDS: MAGNESIUM SULFATE/D5W 1 GM/100 ML RTUPB IV SCH ×2 (22:17→23:31)
[2016-12-18] MEDS: NORMAL SALINE 1000 ML 1,000 ML IV PRN ×2 (03:56→22:26)
[2016-12-18 04:52] LABS: ABSOLUTE EOSINOPHILS # (AUTO) 0.1 10^3/uL (0.0-0.6); ABSOLUTE LYMPHOCYTES (AUTO) 2.8 10^3/uL (0.5-4.7); ABSOLUTE MONOCYTES (AUTO) 0.6 10^3/uL (0.1-1.4); ABSOLUTE NEUT (AUTO) 3.9 10^3/uL (1.7-8.2); BASOPHILS % (AUTO) 0.5 % (0-2); EOSINOPHILS % (AUTO) 1.4 % (0-6); HGB HCT DIFFERENCE 0.7; LYMPHOCYTES % (AUTO) 37.7 % (13-45); MEAN CORPUSCULAR HEMOGLOBIN 26.9 pg (27.0-33.4); MEAN CORPUSCULAR HGB CONC 34.1 g/dL (32.0-36.0); MEAN CORPUSCULAR VOLUME 79 fl (80-97); MONOCYTES % (AUTO) 8.4 % (3-13); RED BLOOD COUNT 4.06 10^6/uL (3.72-5.28); RED CELL DISTRIBUTION WIDTH 14.5 % (11.5-14.0); WHITE BLOOD COUNT 7.5 10^3/uL (4.0-10.5)
[2016-12-18 04:59] LABS: HEMOGLOBIN 10.9 g/dL (12.0-15.5)
[2016-12-18 05:11] LABS: ALANINE AMINOTRANSFERASE 21 U/L (9-52); ALBUMIN 2.6 g/dL (3.5-5.0); ALKALINE PHOSPHATASE 71 U/L (38-126); ANION GAP 6 (5-19); ASPARTATE AMINO TRANSFERASE 25 U/L (14-36); BILIRUBIN,DIRECT 0.3 mg/dL (0.0-0.4); BILIRUBIN,TOTAL 0.4 mg/dL (0.2-1.3); BLOOD UREA NITROGEN 11 mg/dL (7-20); CALCIUM 8.8 mg/dL (8.4-10.2); CARBON DIOXIDE 27 mmol/L (22-30); CHLORIDE 108 mmol/L (98-107); CREATININE RESULT 0.96 mg/dL (0.52-1.25); GLUCOSE 118 mg/dL (75-110); MAGNESIUM 2.4 mg/dL (1.6-2.3); POTASSIUM 3.4 mmol/L (3.6-5.0); SODIUM 141.4 mmol/L (137-145); TOTAL PROTEIN 5.3 g/dL (6.3-8.2)
[2016-12-18] MEDS: LANSOPRAZOLE 30 MG TAB.RAP.DR PO SCH (05:32)
[2016-12-18] MEDS: GABAPENTIN 100 MG CAPSULE PO SCH ×3 (05:32→22:27)
[2016-12-18] MEDS ORDERED: POTASSIUM CHLORIDE 10 MEQ TABLET.SA PO SCH (08:45)
[2016-12-18] MEDS: ENOXAPARIN SODIUM INJ 40 MG/0.4 ML DISP.SYRIN SUBCUT SCH (10:15)
[2016-12-18] MEDS: POTASSIUM CHLORIDE 10 MEQ TABLET.SA PO SCH ×2 (10:16→14:13)
[2016-12-18] MEDS: SERTRALINE HCL 50 MG TABLET PO SCH (10:17)
[2016-12-18] MEDS: LEVETIRACETAM 500 MG TABLET PO SCH ×2 (10:18→22:27)
[2016-12-18] MEDS: ASPIRIN 81 MG TABLET, ENT COATED PO SCH (10:19)
[2016-12-18] MEDS: FLUCONAZOLE 100 MG TABLET PO SCH (10:20)
[2016-12-18] MEDS: CARVEDILOL 6.25 MG TABLET PO SCH ×2 (10:20→22:27)
[2016-12-18] MEDS: EZETIMIBE 10 MG TABLET PO SCH (10:21)
[2016-12-18] MEDS: LOSARTAN POTASSIUM 50 MG TABLET PO SCH (10:21)
[2016-12-18] MEDS: NYSTATIN CREAM 15 GM TP SCH ×2 (10:23→22:26)
[2016-12-18] MEDS: LAMOTRIGINE 25 MG TAB.CHEW PO SCH ×2 (14:14→22:27)
[2016-12-18] MEDS: CEFTRIAXONE 2 GM/D5W RTU 2 GM/50 ML RTUPB IV SCH (17:40)
[2016-12-18] MEDS: INSULIN LISPRO 100 UNIT/ML 3 ML VIAL SUBCUT PRN ×2 (17:40→23:01)
--- NOTE | 2016-12-18 18:13 | PDOC PROGRESS REPORT ---
Subjective Progress Note for:: 12/18/16 Subjective:: Nursing staff reported episodes of visual hallucination. No fever or chills. No nausea or vomiting. Her appetite and oral intake remain fair. No chest pain or difficulty with breathing. Remain on IV fluid. oral Diflucan and IV antibiotic therapy. Physical Exam Vital Signs: Temp Pulse Resp BP Pulse Ox 97.9 F 61 14 124/63 94 12/18/16 04:45 12/18/16 14:00 12/18/16 04:45 12/18/16 04:45 12/18/16 04:45 Intake & Output 12/17/16 12/18/16 12/19/16 06:59 06:59 06:59 Intake Total 854 2453 Balance 854 2453 Weight 76.1 kg 77.1 kg Physical Exam: General appearance: PRESENT: no acute distress, cooperative Head exam: PRESENT: atraumatic, normocephalic Eye exam: PRESENT: conjunctiva pink, EOMI, PERRLA. ABSENT: conjunctiva pale, scleral icterus Mouth exam: PRESENT: moist Teeth exam: PRESENT: edentulous Respiratory exam: PRESENT: clear to auscultation fred, decreased breath sounds - at lung bases Cardiovascular exam: PRESENT: RRR. ABSENT: diastolic murmur, rubs, systolic murmur Vascular exam: PRESENT: normal capillary refill. ABSENT: pallor GI/Abdominal exam: PRESENT: normal bowel sounds, soft. 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 ABSENT: motor sensory deficit Psychiatric exam: PRESENT: appropriate affect, normal mood. ABSENT: homicidal ideation, suicidal ideation Skin exam: PRESENT: dry, intact, rash - groin and perineal region related to yeast infection, warm. ABSENT: cyanosis Results Laboratory Results: 12/18/16 04:18 12/18/16 04:18 12/18/16 12/18/16 04:18 04:18 WBC 7.5 RBC 4.06 Hgb 10.9 L D Hct 32.0 L MCV 79 L MCH 26.9 L MCHC 34.1 RDW 14.5 H Plt Count 152 Seg Neutrophils % 52.0 Lymphocytes % 37.7 Monocytes % 8.4 Eosinophils % 1.4 Basophils % 0.5 Absolute Neutrophils 3.9 Absolute Lymphocytes 2.8 Absolute Monocytes 0.6 Absolute Eosinophils 0.1 Absolute Basophils 0.0 Sodium 141.4 Potassium 3.4 L Chloride 108 H Carbon Dioxide 27 Anion Gap 6 BUN 11 Creatinine 0.96 Est GFR ( Amer) > 60 Est GFR (Non-Af Amer) 58 L Glucose 118 H Calcium 8.8 Magnesium 2.4 H Total Bilirubin 0.4 AST 25 ALT 21 Alkaline Phosphatase 71 Total Protein 5.3 L Albumin 2.6 L Impressions: Head CT 12/16/16 12:28 IMPRESSION: Chronic ischemic changes. EVIDENCE OF ACUTE STROKE: NO. Chest X-Ray 12/16/16 14:18 IMPRESSION: NO ACUTE RADIOGRAPHIC FINDING IN THE CHEST. Assessment & Plan - Diagnosis (1) Hypertensive urgency Is this a current diagnosis for this admission?: Yes (2) Toxic metabolic encephalopathy Is this a current diagnosis for this admission?: Yes (3) Pyelonephritis, acute Is this a current diagnosis for this admission?: Yes (4) Hypokalemia due to inadequate potassium intake Is this a current diagnosis for this admission?: Yes (5) Diabetes mellitus type 2 in obese Is this a current diagnosis for this admission?: Yes (6) Candidal skin infection Is this a current diagnosis for this admission?: Yes (7) Lindy cystitis Is this a current diagnosis for this admission?: Yes - Time Time Spent with patient: 25-34 minutes Medications reviewed and adjusted accordingly: Yes Anticipated discharge: SNF - for ppossible short term rehabilitation. Within: Other - Inpatient Certification Based on my medical assessment, after consideration of the patient's comorbidities, presenting symptoms, or acuity I expect that the services needed warrant INPATIENT care.: Yes I certify that my determination is in accordance with my understanding of Medicare's requirements for reasonable and necessary INPATIENT services [42 CFR 412.3e].: Yes Medical Necessity: Need Close Monitoring Due to Risk of Patient Decompensation, Need For IV Fluids, Need For Continuous Telemetry Monitoring, Need for IV Antibiotics, Risk of Complication if Not Cared For in Hospital Post Hospital Care: D/C or Transfer Summary - Plan Summary Plan Summary: See attending physician orders.
[2016-12-18] MEDS ORDERED: RISPERIDONE 0.25 MG TABLET PO ONE (20:00)
[2016-12-18] MEDS: ATORVASTATIN CALCIUM 80 MG TABLET PO SCH (22:27)
[2016-12-19] MEDS: LANSOPRAZOLE 30 MG TAB.RAP.DR PO SCH (05:12)
[2016-12-19] MEDS: GABAPENTIN 100 MG CAPSULE PO SCH ×3 (05:12→23:28)
[2016-12-19] MEDS: LEVETIRACETAM 500 MG TABLET PO SCH ×2 (11:03→23:29)
[2016-12-19] MEDS: ASPIRIN 81 MG TABLET, ENT COATED PO SCH (11:03)
[2016-12-19] MEDS: ENOXAPARIN SODIUM INJ 40 MG/0.4 ML DISP.SYRIN SUBCUT SCH (11:03)
[2016-12-19] MEDS: CARVEDILOL 6.25 MG TABLET PO SCH ×2 (11:04→23:30)
[2016-12-19] MEDS: EZETIMIBE 10 MG TABLET PO SCH (11:04)
[2016-12-19] MEDS: FLUCONAZOLE 100 MG TABLET PO SCH (11:04)
[2016-12-19] MEDS: SERTRALINE HCL 50 MG TABLET PO SCH (11:04)
[2016-12-19] MEDS: LOSARTAN POTASSIUM 50 MG TABLET PO SCH (11:05)
[2016-12-19] MEDS: RISPERIDONE 0.25 MG TABLET PO SCH ×2 (11:09→18:07)
[2016-12-19] MEDS: LAMOTRIGINE 25 MG TAB.CHEW PO SCH ×2 (11:10→23:26)
[2016-12-19] MEDS: NYSTATIN CREAM 15 GM TP SCH ×2 (11:11→23:40)
[2016-12-19] MEDS ORDERED: LORAZEPAM INJ 2 MG/1 ML VIAL ONE (11:15)
[2016-12-19] MEDS: INSULIN LISPRO 100 UNIT/ML 3 ML VIAL SUBCUT PRN (16:35)
[2016-12-19] MEDS: CEFTRIAXONE 2 GM/D5W RTU 2 GM/50 ML RTUPB IV SCH (18:07)
--- NOTE | 2016-12-19 18:19 | PDOC PROGRESS REPORT ---
Subjective Progress Note for:: 12/19/16 Subjective:: Patient continue to demonstrate visual hallucination and agitation over night with need for soft wrist restraints and administration of Lorazepam earlier today. She remain on Risperidol therapy. There is reported lack of sleep for about 3 days prior to admission and she has not slept much since admission. No fever or chills. No nausea or vomiting. Her appetite and oral intake remain fair. No chest pain or difficulty with breathing. Remain on IV fluid, oral Diflucan and IV antibiotic therapy. Physical Exam Vital Signs: Temp Pulse Resp BP Pulse Ox 98.1 F 83 19 174/77 H 94 12/19/16 11:02 12/19/16 11:02 12/19/16 11:02 12/19/16 11:02 12/19/16 11:02 Intake & Output 12/18/16 12/19/16 12/20/16 06:59 06:59 06:59 Intake Total 2453 2586 Balance 2453 2586 Weight 77.1 kg 78.8 kg Physical Exam: General appearance: PRESENT: no acute distress, cooperative Head exam: PRESENT: atraumatic, normocephalic Eye exam: PRESENT: conjunctiva pink, EOMI, PERRLA. ABSENT: conjunctiva pale, scleral icterus Mouth exam: PRESENT: moist Teeth exam: PRESENT: edentulous Respiratory exam: PRESENT: clear to auscultation fred, decreased breath sounds - at lung bases Cardiovascular exam: PRESENT: RRR. ABSENT: diastolic murmur, rubs, systolic murmur Vascular exam: PRESENT: normal capillary refill. ABSENT: pallor GI/Abdominal exam: PRESENT: normal bowel sounds, soft. 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 ABSENT: motor sensory deficit Psychiatric exam: PRESENT: agitation, confusion, visual hallucination. ABSENT: homicidal ideation, suicidal ideation Skin exam: PRESENT: dry, intact, rash - groin and perineal region related to yeast infection, warm. ABSENT: cyanosis Results Laboratory Results: 12/18/16 04:18 12/18/16 04:18 Impressions: Head CT 12/16/16 12:28 IMPRESSION: Chronic ischemic changes. EVIDENCE OF ACUTE STROKE: NO. Chest X-Ray 12/16/16 14:18 IMPRESSION: NO ACUTE RADIOGRAPHIC FINDING IN THE CHEST. Assessment & Plan - Diagnosis (1) Hypertensive urgency Is this a current diagnosis for this admission?: Yes (2) Toxic metabolic encephalopathy Is this a current diagnosis for this admission?: Yes (3) Pyelonephritis, acute Is this a current diagnosis for this admission?: Yes (4) Hypokalemia due to inadequate potassium intake Is this a current diagnosis for this admission?: Yes (5) Diabetes mellitus type 2 in obese Is this a current diagnosis for this admission?: Yes (6) Candidal skin infection Is this a current diagnosis for this admission?: Yes (7) Lindy cystitis Is this a current diagnosis for this admission?: Yes (8) Acute hyperactive delirium due to multiple etiologies Is this a current diagnosis for this admission?: No Plan: Remain on Risperdol therapy. Start on Temazepam 7.5mg po qhs for insomnia management. Start on Zbec 1 tablet po daily. Continue reorientation input. - Time Time Spent with patient: 35 or more minutes Medications reviewed and adjusted accordingly: Yes Anticipated discharge: SNF - for short term rehabilitation. Within: Other - Inpatient Certification Based on my medical assessment, after consideration of the patient's comorbidities, presenting symptoms, or acuity I expect that the services needed warrant INPATIENT care.: Yes I certify that my determination is in accordance with my understanding of Medicare's requirements for reasonable and necessary INPATIENT services [42 CFR 412.3e].: Yes Medical Necessity: Need Close Monitoring Due to Risk of Patient Decompensation, Need For IV Fluids, Need For Continuous Telemetry Monitoring, Need for IV Antibiotics, Risk of Complication if Not Cared For in Hospital Post Hospital Care: D/C or Transfer Summary - Plan Summary Plan Summary: See attending physician orders.
[2016-12-19] MEDS ORDERED: TEMAZEPAM 7.5 MG CAPSULE PO SCH (22:00)
[2016-12-19] MEDS: ATORVASTATIN CALCIUM 80 MG TABLET PO SCH (23:27)
[2016-12-19] MEDS: MULTIVIT-STRESS FORMULA/ZINC TABLET PO SCH (23:29)
[2016-12-20] MEDS: NORMAL SALINE 1000 ML 1,000 ML IV PRN (00:55)
[2016-12-20 05:36] LABS: ALANINE AMINOTRANSFERASE 25 U/L (9-52); ALBUMIN 2.9 g/dL (3.5-5.0); ALKALINE PHOSPHATASE 80 U/L (38-126); ANION GAP 11 (5-19); ASPARTATE AMINO TRANSFERASE 26 U/L (14-36); BILIRUBIN,DIRECT 0.4 mg/dL (0.0-0.4); BILIRUBIN,TOTAL 0.6 mg/dL (0.2-1.3); BLOOD UREA NITROGEN 7 mg/dL (7-20); CALCIUM 9.3 mg/dL (8.4-10.2); CARBON DIOXIDE 23 mmol/L (22-30); CHLORIDE 107 mmol/L (98-107); CREATININE RESULT 0.93 mg/dL (0.52-1.25); GLUCOSE 148 mg/dL (75-110); POTASSIUM 4.2 mmol/L (3.6-5.0); SODIUM 140.7 mmol/L (137-145); TOTAL PROTEIN 5.7 g/dL (6.3-8.2)
[2016-12-20 06:35] LABS: ABSOLUTE EOSINOPHILS # (AUTO) 0.2 10^3/uL (0.0-0.6); ABSOLUTE LYMPHOCYTES (AUTO) 1.5 10^3/uL (0.5-4.7); ABSOLUTE MONOCYTES (AUTO) 0.4 10^3/uL (0.1-1.4); ABSOLUTE NEUT (AUTO) 5.2 10^3/uL (1.7-8.2); BASOPHILS % (AUTO) 0.3 % (0-2); EOSINOPHILS % (AUTO) 3.2 % (0-6); HEMATOCRIT 36.6 % (36.0-47.0); HEMOGLOBIN 12.3 g/dL (12.0-15.5); HGB HCT DIFFERENCE 0.3; MEAN CORPUSCULAR HEMOGLOBIN 26.6 pg (27.0-33.4); MEAN CORPUSCULAR HGB CONC 33.7 g/dL (32.0-36.0); MEAN CORPUSCULAR VOLUME 79 fl (80-97); MONOCYTES % (AUTO) 5.4 % (3-13); RED BLOOD COUNT 4.63 10^6/uL (3.72-5.28); RED CELL DISTRIBUTION WIDTH 14.8 % (11.5-14.0); SEGMENTED NEUTROPHILS % (AUTO) 70.1 % (42-78); WHITE BLOOD COUNT 7.4 10^3/uL (4.0-10.5)
[2016-12-20] MEDS: GABAPENTIN 100 MG CAPSULE PO SCH ×3 (06:52→23:08)
[2016-12-20] MEDS: LANSOPRAZOLE 30 MG TAB.RAP.DR PO SCH (06:52)
[2016-12-20] MEDS: EZETIMIBE 10 MG TABLET PO SCH (12:28)
[2016-12-20] MEDS: LOSARTAN POTASSIUM 50 MG TABLET PO SCH (12:28)
[2016-12-20] MEDS: CARVEDILOL 6.25 MG TABLET PO SCH ×2 (12:29→23:08)
[2016-12-20] MEDS: SERTRALINE HCL 50 MG TABLET PO SCH (12:29)
[2016-12-20] MEDS: ASPIRIN 81 MG TABLET, ENT COATED PO SCH (12:30)
[2016-12-20] MEDS: LAMOTRIGINE 25 MG TAB.CHEW PO SCH ×2 (12:30→23:08)
[2016-12-20] MEDS: LEVETIRACETAM 500 MG TABLET PO SCH ×2 (12:30→23:08)
[2016-12-20] MEDS: FLUCONAZOLE 100 MG TABLET PO SCH (12:30)
[2016-12-20] MEDS: ENOXAPARIN SODIUM INJ 40 MG/0.4 ML DISP.SYRIN SUBCUT SCH (12:31)
[2016-12-20] MEDS: RISPERIDONE 0.25 MG TABLET PO SCH ×2 (12:31→18:12)
[2016-12-20] MEDS ORDERED: RISPERIDONE 0.25 MG TABLET PO ONE (14:00)
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
[2016-12-20] MEDS: NYSTATIN CREAM 15 GM TP SCH ×2 (17:01→23:09)
[2016-12-20] MEDS: MULTIVIT-STRESS FORMULA/ZINC TABLET PO SCH (18:12)
[2016-12-20] MEDS: CEFTRIAXONE 2 GM/D5W RTU 2 GM/50 ML RTUPB IV SCH (18:13)
[2016-12-20] MEDS ORDERED: TEMAZEPAM 15 MG CAPSULE PO PRN (22:00)
[2016-12-20] MEDS: ATORVASTATIN CALCIUM 80 MG TABLET PO SCH (23:08)
[2016-12-21] MEDS: NORMAL SALINE 1000 ML 1,000 ML IV PRN ×2 (00:57→13:56)
[2016-12-21] MEDS: LANSOPRAZOLE 30 MG TAB.RAP.DR PO SCH (06:14)
[2016-12-21] MEDS: GABAPENTIN 100 MG CAPSULE PO SCH ×3 (06:14→23:31)
[2016-12-21] MEDS: LOSARTAN POTASSIUM 50 MG TABLET PO SCH (10:23)
[2016-12-21] MEDS: RISPERIDONE 0.25 MG TABLET PO SCH ×2 (10:24→18:03)
[2016-12-21] MEDS: CARVEDILOL 6.25 MG TABLET PO SCH ×2 (10:24→23:32)
[2016-12-21] MEDS: LEVETIRACETAM 500 MG TABLET PO SCH ×2 (10:24→23:31)
[2016-12-21] MEDS: SERTRALINE HCL 50 MG TABLET PO SCH (10:25)
[2016-12-21] MEDS: EZETIMIBE 10 MG TABLET PO SCH (10:25)
[2016-12-21] MEDS: FLUCONAZOLE 100 MG TABLET PO SCH (10:25)
[2016-12-21] MEDS: ASPIRIN 81 MG TABLET, ENT COATED PO SCH (10:25)
[2016-12-21] MEDS: LAMOTRIGINE 25 MG TAB.CHEW PO SCH ×2 (11:06→23:32)
[2016-12-21] MEDS: ENOXAPARIN SODIUM INJ 40 MG/0.4 ML DISP.SYRIN SUBCUT SCH (11:07)
[2016-12-21] MEDS: INSULIN LISPRO 100 UNIT/ML 3 ML VIAL SUBCUT PRN ×2 (13:42→18:04)
[2016-12-21] MEDS: NYSTATIN CREAM 15 GM TP SCH ×2 (15:07→23:33)
--- NOTE | 2016-12-21 16:46 | PDOC PROGRESS REPORT ---
Subjective Progress Note for:: 12/21/16 Subjective:: Patient is more lucid and cooperative today. No fever or chills. No chest pain or difficulty with breathing. No nausea or vomiting. Her appetite and oral intake remain fair. Remain on IV fluid, oral Diflucan and IV antibiotic therapy. Physical Exam Vital Signs: Temp Pulse Resp BP Pulse Ox 98.0 F 63 16 152/69 H 97 12/21/16 11:05 12/21/16 14:00 12/21/16 11:05 12/21/16 11:05 12/21/16 11:05 Intake & Output 12/20/16 12/21/16 12/22/16 06:59 06:59 06:59 Intake Total 1200 1428 Balance 1200 1428 Weight 95.9 kg General appearance: PRESENT: no acute distress, cooperative Head exam: PRESENT: atraumatic, normocephalic Eye exam: PRESENT: conjunctiva pink, EOMI, PERRLA. ABSENT: scleral icterus Mouth exam: PRESENT: moist Respiratory exam: PRESENT: clear to auscultation fred Cardiovascular exam: PRESENT: RRR, +S1, +S2. ABSENT: diastolic murmur, rubs, systolic murmur Vascular exam: PRESENT: normal capillary refill. ABSENT: pallor GI/Abdominal exam: PRESENT: normal bowel sounds, soft. ABSENT: distended, guarding, mass, organolmegaly, rebound, tenderness Extremities exam: ABSENT: pedal edema Neurological exam: PRESENT: alert, awake, oriented to person, oriented to place , oriented to time, oriented to situation, CN II-XII grossly intact. ABSENT: motor sensory deficit Psychiatric exam: PRESENT: appropriate affect, normal mood. ABSENT: homicidal ideation, suicidal ideation Skin exam: PRESENT: dry, intact, warm. ABSENT: cyanosis, rash Results Laboratory Results: 12/20/16 06:19 12/20/16 04:25 Impressions: Head CT 12/16/16 12:28 IMPRESSION: Chronic ischemic changes. EVIDENCE OF ACUTE STROKE: NO. Chest X-Ray 12/16/16 14:18 IMPRESSION: NO ACUTE RADIOGRAPHIC FINDING IN THE CHEST. Assessment & Plan - Diagnosis (1) Hypertensive urgency Is this a current diagnosis for this admission?: Yes (2) Toxic metabolic encephalopathy Is this a current diagnosis for this admission?: Yes (3) Pyelonephritis, acute Is this a current diagnosis for this admission?: Yes (4) Hypokalemia due to inadequate potassium intake Is this a current diagnosis for this admission?: Yes (5) Diabetes mellitus type 2 in obese Is this a current diagnosis for this admission?: Yes (6) Candidal skin infection Is this a current diagnosis for this admission?: Yes (7) Lindy cystitis Is this a current diagnosis for this admission?: Yes (8) Acute hyperactive delirium due to multiple etiologies Is this a current diagnosis for this admission?: No - Time Time Spent with patient: 25-34 minutes Medications reviewed and adjusted accordingly: Yes Anticipated discharge: SNF - short term rehabilitation - Inpatient Certification Based on my medical assessment, after consideration of the patient's comorbidities, presenting symptoms, or acuity I expect that the services needed warrant INPATIENT care.: Yes I certify that my determination is in accordance with my understanding of Medicare's requirements for reasonable and necessary INPATIENT services [42 CFR 412.3e].: Yes Medical Necessity: Need Close Monitoring Due to Risk of Patient Decompensation, Need For Continuous Telemetry Monitoring, Need for IV Antibiotics, Risk of Complication if Not Cared For in Hospital Post Hospital Care: D/C or Transfer Summary - Plan Summary Plan Summary: D/C IV Rocephin. Maintain on Oral Diflucan therapy. Continue other current medication management. Follow up on possible transfer to SNF for short term rehabilitation.
[2016-12-21] MEDS: MULTIVIT-STRESS FORMULA/ZINC TABLET PO SCH (18:04)
[2016-12-21] MEDS: ATORVASTATIN CALCIUM 80 MG TABLET PO SCH (23:31)
[2016-12-22] MEDS: NORMAL SALINE 1000 ML 1,000 ML IV PRN (05:39)
[2016-12-22] MEDS: GABAPENTIN 100 MG CAPSULE PO SCH ×3 (06:29→22:02)
[2016-12-22] MEDS: LANSOPRAZOLE 30 MG TAB.RAP.DR PO SCH (06:29)
[2016-12-22] MEDS: LEVETIRACETAM 500 MG TABLET PO SCH ×2 (11:30→22:02)
[2016-12-22] MEDS: RISPERIDONE 0.25 MG TABLET PO SCH ×2 (11:30→17:00)
[2016-12-22] MEDS: LOSARTAN POTASSIUM 50 MG TABLET PO SCH (11:31)
[2016-12-22] MEDS: LAMOTRIGINE 25 MG TAB.CHEW PO SCH ×2 (11:31→22:02)
[2016-12-22] MEDS: FLUCONAZOLE 100 MG TABLET PO SCH (11:31)
[2016-12-22] MEDS: CARVEDILOL 6.25 MG TABLET PO SCH ×2 (11:32→22:01)
[2016-12-22] MEDS: EZETIMIBE 10 MG TABLET PO SCH (11:32)
[2016-12-22] MEDS: SERTRALINE HCL 50 MG TABLET PO SCH (11:33)
[2016-12-22] MEDS: ASPIRIN 81 MG TABLET, ENT COATED PO SCH (11:33)
[2016-12-22] MEDS: ENOXAPARIN SODIUM INJ 40 MG/0.4 ML DISP.SYRIN SUBCUT SCH (11:34)
[2016-12-22] MEDS: NYSTATIN CREAM 15 GM TP SCH ×2 (12:05→22:02)
--- NOTE | 2016-12-22 16:29 | PDOC PROGRESS REPORT ---
Subjective Progress Note for:: 12/22/16 Subjective:: No chest pain or difficulty with breathing. No fever or chills. No abdominal pain, nausea or vomiting. She remain on IV antibiotic IV fluid and oral Diflucan therapy. Physical Exam Vital Signs: Temp Pulse Resp BP Pulse Ox 98.1 F 64 16 150/74 H 96 12/22/16 11:30 12/22/16 14:00 12/22/16 11:30 12/22/16 11:30 12/22/16 11:30 Intake & Output 12/21/16 12/22/16 12/23/16 06:59 06:59 06:59 Intake Total 1428 2355 Balance 1428 2355 Weight 95.9 kg 95.9 kg Physical Exam: General appearance: PRESENT: no acute distress, cooperative Head exam: PRESENT: atraumatic, normocephalic Eye exam: PRESENT: conjunctiva pink, EOMI, PERRLA. ABSENT: scleral icterus Mouth exam: PRESENT: moist Respiratory exam: PRESENT: clear to auscultation fred Cardiovascular exam: PRESENT: RRR, +S1, +S2. ABSENT: diastolic murmur, rubs, systolic murmur Vascular exam: PRESENT: normal capillary refill. ABSENT: pallor GI/Abdominal exam: PRESENT: normal bowel sounds, soft. ABSENT: distended, guarding, mass, organomegaly, rebound, tenderness Extremities exam: ABSENT: pedal edema Neurological exam: PRESENT: alert, awake, oriented to person, oriented to place , oriented to time, oriented to situation, CN II-XII grossly intact. ABSENT: motor sensory deficit Psychiatric exam: PRESENT: appropriate affect, normal mood. ABSENT: homicidal ideation, suicidal ideation Skin exam: PRESENT: dry, intact, warm. ABSENT: cyanosis, rash Results Laboratory Results: 12/20/16 06:19 12/20/16 04:25 Impressions: Head CT 12/16/16 12:28 IMPRESSION: Chronic ischemic changes. EVIDENCE OF ACUTE STROKE: NO. Chest X-Ray 12/16/16 14:18 IMPRESSION: NO ACUTE RADIOGRAPHIC FINDING IN THE CHEST. Assessment & Plan - Diagnosis (1) Hypertensive urgency Is this a current diagnosis for this admission?: Yes (2) Toxic metabolic encephalopathy Is this a current diagnosis for this admission?: Yes (3) Pyelonephritis, acute Is this a current diagnosis for this admission?: Yes (4) Hypokalemia due to inadequate potassium intake Is this a current diagnosis for this admission?: Yes (5) Diabetes mellitus type 2 in obese Is this a current diagnosis for this admission?: Yes (6) Candidal skin infection Is this a current diagnosis for this admission?: Yes (7) Lindy cystitis Is this a current diagnosis for this admission?: Yes (8) Acute hyperactive delirium due to multiple etiologies Is this a current diagnosis for this admission?: No - Time Time Spent with patient: 25-34 minutes Medications reviewed and adjusted accordingly: Yes Anticipated discharge: SNF - she is currently in need for 2 person assist for transfer. Within: Other - Inpatient Certification Based on my medical assessment, after consideration of the patient's comorbidities, presenting symptoms, or acuity I expect that the services needed warrant INPATIENT care.: Yes I certify that my determination is in accordance with my understanding of Medicare's requirements for reasonable and necessary INPATIENT services [42 CFR 412.3e].: Yes Medical Necessity: Need Close Monitoring Due to Risk of Patient Decompensation, Need For IV Fluids, Need For Continuous Telemetry Monitoring, Need for IV Antibiotics, Risk of Complication if Not Cared For in Hospital Post Hospital Care: D/C or Transfer Summary - Plan Summary Plan Summary: Continue on current medication management. Follow up on skin biopsy findings.
[2016-12-22] MEDS: INSULIN LISPRO 100 UNIT/ML 3 ML VIAL SUBCUT PRN (16:50)
[2016-12-22] MEDS: MULTIVIT-STRESS FORMULA/ZINC TABLET PO SCH (18:11)
[2016-12-22] MEDS: ATORVASTATIN CALCIUM 80 MG TABLET PO SCH (22:01)
[2016-12-23] MEDS: LANSOPRAZOLE 30 MG TAB.RAP.DR PO SCH (05:23)
[2016-12-23] MEDS: GABAPENTIN 100 MG CAPSULE PO SCH ×3 (05:23→22:48)
[2016-12-23] MEDS: CARVEDILOL 6.25 MG TABLET PO SCH ×2 (09:48→22:47)
[2016-12-23] MEDS: ENOXAPARIN SODIUM INJ 40 MG/0.4 ML DISP.SYRIN SUBCUT SCH (09:48)
[2016-12-23] MEDS: FLUCONAZOLE 100 MG TABLET PO SCH (09:49)
[2016-12-23] MEDS: EZETIMIBE 10 MG TABLET PO SCH (09:49)
[2016-12-23] MEDS: SERTRALINE HCL 50 MG TABLET PO SCH (09:49)
[2016-12-23] MEDS: RISPERIDONE 0.25 MG TABLET PO SCH ×2 (09:50→17:25)
[2016-12-23] MEDS: LOSARTAN POTASSIUM 50 MG TABLET PO SCH (09:50)
[2016-12-23] MEDS: LEVETIRACETAM 500 MG TABLET PO SCH ×2 (09:50→22:46)
[2016-12-23] MEDS: ASPIRIN 81 MG TABLET, ENT COATED PO SCH (09:50)
[2016-12-23] MEDS: LAMOTRIGINE 25 MG TAB.CHEW PO SCH ×2 (09:50→22:47)
[2016-12-23] MEDS: NYSTATIN CREAM 15 GM TP SCH (09:51)
[2016-12-23] MEDS: NORMAL SALINE 1000 ML 1,000 ML IV PRN (10:04)
--- NOTE | 2016-12-23 15:02 | PDOC PROGRESS REPORT ---
Subjective Progress Note for:: 12/23/16 Subjective:: No chest pain or difficulty with breathing. No fever or chills. No abdominal pain, nausea or vomiting. There was concern about her claim regarding missing rings but further investigation revealed that she had no jewelry on herself upon admission. Physical Exam Vital Signs: Temp Pulse Resp BP Pulse Ox 100.4 F 72 20 128/53 H 95 12/23/16 08:00 12/23/16 14:00 12/23/16 08:00 12/23/16 08:00 12/23/16 08:00 Intake & Output 12/22/16 12/23/16 12/24/16 06:59 06:59 06:59 Intake Total 2355 2831 Balance 2355 2831 Weight 95.9 kg 94.3 kg Physical Exam: General appearance: PRESENT: no acute distress, cooperative Head exam: PRESENT: atraumatic, normocephalic Eye exam: PRESENT: conjunctiva pink, EOMI, PERRLA. ABSENT: scleral icterus Mouth exam: PRESENT: moist Respiratory exam: PRESENT: clear to auscultation fred Cardiovascular exam: PRESENT: RRR, +S1, +S2. ABSENT: diastolic murmur, rubs, systolic murmur Vascular exam: PRESENT: normal capillary refill. ABSENT: pallor GI/Abdominal exam: PRESENT: normal bowel sounds, soft. ABSENT: distended, guarding, mass, organomegaly, rebound, tenderness Extremities exam: ABSENT: pedal edema Neurological exam: PRESENT: alert, awake, oriented to person, oriented to place , oriented to time, oriented to situation, CN II-XII grossly intact. ABSENT: motor sensory deficit Psychiatric exam: PRESENT: appropriate affect, normal mood. ABSENT: homicidal ideation, suicidal ideation Skin exam: PRESENT: dry, intact, warm. ABSENT: cyanosis, rash Results Laboratory Results: 12/20/16 06:19 12/20/16 04:25 Impressions: Head CT 12/16/16 12:28 IMPRESSION: Chronic ischemic changes. EVIDENCE OF ACUTE STROKE: NO. Chest X-Ray 12/16/16 14:18 IMPRESSION: NO ACUTE RADIOGRAPHIC FINDING IN THE CHEST. Assessment & Plan - Diagnosis (1) Hypertensive urgency Is this a current diagnosis for this admission?: Yes (2) Toxic metabolic encephalopathy Is this a current diagnosis for this admission?: Yes (3) Pyelonephritis, acute Is this a current diagnosis for this admission?: Yes (4) Hypokalemia due to inadequate potassium intake Is this a current diagnosis for this admission?: Yes (5) Diabetes mellitus type 2 in obese Is this a current diagnosis for this admission?: Yes (6) Candidal skin infection Is this a current diagnosis for this admission?: Yes (7) Lindy cystitis Is this a current diagnosis for this admission?: Yes (8) Acute hyperactive delirium due to multiple etiologies Is this a current diagnosis for this admission?: No - Time Time Spent with patient: 25-34 minutes Medications reviewed and adjusted accordingly: Yes Anticipated discharge[facility] - Inpatient Certification Based on my medical assessment, after consideration of the patient's comorbidities, presenting symptoms, or acuity I expect that the services needed warrant INPATIENT care.: Yes I certify that my determination is in accordance with my understanding of Medicare's requirements for reasonable and necessary INPATIENT services [42 CFR 412.3e].: Yes Medical Necessity: Need Close Monitoring Due to Risk of Patient Decompensation, Need For IV Fluids, Need For Continuous Telemetry Monitoring, Risk of Complication if Not Cared For in Hospital Post Hospital Care: D/C or Transfer Summary - Plan Summary Plan Summary: Continue on current medication management.
[2016-12-23] MEDS ORDERED: HALOPERIDOL LACTATE INJ 5 MG/1 ML VIAL IV ONE (20:45)
[2016-12-23] MEDS: ATORVASTATIN CALCIUM 80 MG TABLET PO SCH (22:47)
[2016-12-23] MEDS: MULTIVIT-STRESS FORMULA/ZINC TABLET PO SCH (22:58)
[2016-12-24] MEDS: GABAPENTIN 100 MG CAPSULE PO SCH ×2 (06:28→13:57)
[2016-12-24] MEDS: INSULIN LISPRO 100 UNIT/ML 3 ML VIAL SUBCUT PRN ×4 (06:28→18:51)
[2016-12-24] MEDS: LANSOPRAZOLE 30 MG TAB.RAP.DR PO SCH (06:28)
[2016-12-24] MEDS: ENOXAPARIN SODIUM INJ 40 MG/0.4 ML DISP.SYRIN SUBCUT SCH (09:02)
[2016-12-24] MEDS: RISPERIDONE 0.25 MG TABLET PO SCH ×2 (09:03→17:21)
[2016-12-24] MEDS: EZETIMIBE 10 MG TABLET PO SCH (09:04)
[2016-12-24] MEDS: CARVEDILOL 6.25 MG TABLET PO SCH (09:04)
[2016-12-24] MEDS: ASPIRIN 81 MG TABLET, ENT COATED PO SCH (09:04)
[2016-12-24] MEDS: LAMOTRIGINE 25 MG TAB.CHEW PO SCH (09:04)
[2016-12-24] MEDS: SERTRALINE HCL 50 MG TABLET PO SCH (09:05)
[2016-12-24] MEDS: LEVETIRACETAM 500 MG TABLET PO SCH (09:05)
[2016-12-24] MEDS: LOSARTAN POTASSIUM 50 MG TABLET PO SCH (09:05)
[2016-12-24] MEDS: FLUCONAZOLE 100 MG TABLET PO SCH (09:05)
[2016-12-24] MEDS: NORMAL SALINE 1000 ML 1,000 ML IV PRN (11:26)
--- NOTE | 2016-12-24 14:05 | PDOC TRANSFER SUMMARY ---
General - Admit/Disc Date/PCP Admission Date/Primary Care Provider: 12/16/16 19:03 PONCHO CONTRERAS Discharge Date: 12/24/16 - Discharge Diagnosis (1) Hypertensive urgency Is this a current diagnosis for this admission?: Yes (2) Toxic metabolic encephalopathy Is this a current diagnosis for this admission?: Yes (3) Pyelonephritis, acute Is this a current diagnosis for this admission?: Yes (4) Hypokalemia due to inadequate potassium intake Is this a current diagnosis for this admission?: Yes (5) Diabetes mellitus type 2 in obese Is this a current diagnosis for this admission?: Yes (6) Candidal skin infection Is this a current diagnosis for this admission?: Yes (7) Lindy cystitis Is this a current diagnosis for this admission?: Yes (8) Acute hyperactive delirium due to multiple etiologies Is this a current diagnosis for this admission?: No - Additional Information Resuscitation Status: Full Code Discharge Diet: Cardiac, Diabetic Discharge Activity: Activity As Tolerated, Slowly Increase Activity, Supervised Activity Home Medications: Atorvastatin Calcium [Lipitor 80 mg Tablet] 80 mg PO QHS 12/16/16 Carvedilol [Coreg 6.25 mg Tablet] 6.25 mg PO Q12 12/16/16 Ezetimibe [Zetia 10 mg Tablet] 10 mg PO DAILY 12/16/16 Fluticasone/Vilanterol [Breo Ellipta 100-25 Mcg INH] 1 puff IH Q12 12/16/16 Lamotrigine 50 mg PO Q12 12/16/16 Levetiracetam [Keppra 500 mg Tablet] 500 mg PO Q12 12/16/16 Linagliptin [Tradjenta] 5 mg PO DAILY 12/16/16 Nateglinide [Starlix 60 mg Tablet] 60 mg PO Q8 12/16/16 Pantoprazole Sodium [Protonix] 40 mg PO Q2DAYS 12/16/16 Sertraline HCl [Zoloft] 25 mg PO DAILY 12/16/16 Haloperidol [Haldol 0.5 mg Tablet] 0.5 mg PO BID #60 tablet 12/24/16 Losartan Potassium [Cozaar 50 mg Tablet] 100 mg PO DAILY #0 12/24/16 History of Present Illness Admission Date/PCP: 12/16/16 19:03 PONCHO CONTRERAS History of Present Illness: RICARDO HOLM is a 66 year old female known to my practice brought to the ED by EMS crew due to elevated blood pressure and worsening left sided weakness. She has history of stroke with left sided weakness, lower extremity more the upper extremity. She was found with elevated blood pressure upon arrival in the ED with need for IV Labetalol administration.Her head CT scan did not reveal any acute findings. She demonstrated left CVA tenderness with abnormal Urinalysis suggestive of UTI with pyelonephritis. There was associated hypokalemia. She was advised hospitalization for further evaluation and management. 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 Hospital Course Hospital Course: Patient did respond to anti Hypertensive management and Diflucan therapy for Lindy UTI. Her blood pressure did show improvement during this hospitalization. She was initially treated with IV Rocephin for possible bacterial UTI but her urine and blood cultures were devoid of bacterial growth. Her stay was compounded with episodes of delirium necessitating need for anti psychotic medication administration. She demonstrated visual hallucination. There were episodes of agitation, particularly at night time suggestive of sundowning syndrome. She will be discharged to SNF for short term rehabilitation. She will benefit from home health service referral upon discharge. Follow up in the office as instructed before discharge from SNF. Physical Exam Vital Signs: Temp Pulse Resp BP Pulse Ox 97.4 F 52 L 18 146/72 H 97 12/24/16 11:57 12/24/16 11:57 12/24/16 11:57 12/24/16 11:57 12/24/16 11:57 Intake & Output 12/23/16 12/24/16 12/25/16 06:59 06:59 06:59 Intake Total 2831 3246 237 Balance 2831 3246 237 Weight 94.3 kg 94.4 kg General appearance: PRESENT: no acute distress, cooperative Head exam: PRESENT: atraumatic, normocephalic Eye exam: PRESENT: conjunctiva pink, EOMI, PERRLA. ABSENT: scleral icterus Mouth exam: PRESENT: moist Respiratory exam: PRESENT: clear to auscultation fred Cardiovascular exam: PRESENT: RRR, +S1, +S2. ABSENT: diastolic murmur, rubs, systolic murmur Vascular exam: PRESENT: normal capillary refill. ABSENT: pallor GI/Abdominal exam: PRESENT: normal bowel sounds, soft. ABSENT: distended, guarding, mass, organomegaly, rebound, tenderness Extremities exam: ABSENT: pedal edema Neurological exam: PRESENT: alert, awake, oriented to person, oriented to place , oriented to time, oriented to situation, CN II-XII grossly intact. ABSENT: motor sensory deficit Psychiatric exam: PRESENT: appropriate affect, normal mood. ABSENT: homicidal ideation, suicidal ideation Skin exam: PRESENT: dry, intact, warm. ABSENT: cyanosis, rash Results Laboratory Results: 12/20/16 06:19 12/20/16 04:25 Impressions: Head CT 12/16/16 12:28 IMPRESSION: Chronic ischemic changes. EVIDENCE OF ACUTE STROKE: NO. Chest X-Ray 12/16/16 14:18 IMPRESSION: NO ACUTE RADIOGRAPHIC FINDING IN THE CHEST. Transfer Plan - Disposition Transfer Plan: Transfer to SNF for short term rehabilitation. - Time Spent with Patient Time spent with patient: Less than 30 Minutes Qualifiers PATEINT BEING DISCHARGED WITH ANY OF THE FOLLOWING DIAGNOSIS?: No Plan Discharge Plan: Transfer to SNF for short term rehabilitation.
[2016-12-24 14:08] LABS: ABSOLUTE BASOPHILS # (AUTO) 0.1 10^3/uL (0.0-0.2); ABSOLUTE EOSINOPHILS # (AUTO) 0.2 10^3/uL (0.0-0.6); ABSOLUTE LYMPHOCYTES (AUTO) 2.2 10^3/uL (0.5-4.7); ABSOLUTE MONOCYTES (AUTO) 0.5 10^3/uL (0.1-1.4); ABSOLUTE NEUT (AUTO) 4.1 10^3/uL (1.7-8.2); BASOPHILS % (AUTO) 1.6 % (0-2); EOSINOPHILS % (AUTO) 3.4 % (0-6); HEMOGLOBIN 11.4 g/dL (12.0-15.5); HGB HCT DIFFERENCE -0.8; LYMPHOCYTES % (AUTO) 31.1 % (13-45); MEAN CORPUSCULAR HEMOGLOBIN 25.9 pg (27.0-33.4); MEAN CORPUSCULAR HGB CONC 32.5 g/dL (32.0-36.0); MEAN CORPUSCULAR VOLUME 80 fl (80-97); MONOCYTES % (AUTO) 6.8 % (3-13); RED CELL DISTRIBUTION WIDTH 14.6 % (11.5-14.0); SEGMENTED NEUTROPHILS % (AUTO) 57.1 % (42-78); WHITE BLOOD COUNT 7.2 10^3/uL (4.0-10.5)
[2016-12-24] MEDS: MULTIVIT-STRESS FORMULA/ZINC TABLET PO SCH (18:51)
[2016-12-25] MEDS: GABAPENTIN 100 MG CAPSULE PO SCH ×3 (00:41→13:17)
[2016-12-25] MEDS: LEVETIRACETAM 500 MG TABLET PO SCH ×2 (00:41→10:44)
[2016-12-25] MEDS: LAMOTRIGINE 25 MG TAB.CHEW PO SCH ×2 (00:41→10:44)
[2016-12-25] MEDS: CARVEDILOL 6.25 MG TABLET PO SCH ×2 (00:41→10:47)
[2016-12-25] MEDS: INSULIN LISPRO 100 UNIT/ML 3 ML VIAL SUBCUT PRN ×2 (00:41→13:14)
[2016-12-25] MEDS: ATORVASTATIN CALCIUM 80 MG TABLET PO SCH (00:41)
[2016-12-25] MEDS: LANSOPRAZOLE 30 MG TAB.RAP.DR PO SCH (05:06)
[2016-12-25] MEDS: LOSARTAN POTASSIUM 50 MG TABLET PO SCH (10:44)
[2016-12-25] MEDS: ASPIRIN 81 MG TABLET, ENT COATED PO SCH (10:45)
[2016-12-25] MEDS: RISPERIDONE 0.25 MG TABLET PO SCH ×2 (10:46→21:05)
[2016-12-25] MEDS: SERTRALINE HCL 50 MG TABLET PO SCH (10:46)
[2016-12-25] MEDS: EZETIMIBE 10 MG TABLET PO SCH (10:47)
[2016-12-25] MEDS: ENOXAPARIN SODIUM INJ 40 MG/0.4 ML DISP.SYRIN SUBCUT SCH (10:47)
[2016-12-25 17:38] VITALS: BP 168/91
[2016-12-25] MEDS: MULTIVIT-STRESS FORMULA/ZINC TABLET PO SCH (21:05)
== END 2016-12-25 21:00 | DRG 304 ==
LOC: ER 12:07 → UNDOADMIN 16:22 → EH 16:22 → 3N 18:39 → EH 18:39 → 3N 19:03
PROVIDERS: ADMIT Internal Medicine Geriatric Medicine; ATTEND Internal Medicine Geriatric Medicine
PROC: 3E0234Z Introduction of Serum, Toxoid and Vaccine into Muscle, Percutaneous Approach (ICD-10-PCS; principal; 2016-12-24)
DX: I16.0 Hypertensive urgency (principal); G92 Toxic encephalopathy; N10 Acute pyelonephritis; I69.354 Hemiplegia and hemiparesis following cerebral infarction affecting left non-dominant side; B37.41 Candidal cystitis and urethritis; B37.2 Candidiasis of skin and nail; E87.6 Hypokalemia; I50.9 Heart failure, unspecified; I11.0 Hypertensive heart disease with heart failure; E78.5 Hyperlipidemia, unspecified; J44.9 Chronic obstructive pulmonary disease, unspecified; E11.9 Type 2 diabetes mellitus without complications; K21.9 Gastro-esophageal reflux disease without esophagitis; R44.1 Visual hallucinations; R41.0 Disorientation, unspecified; I25.2 Old myocardial infarction; Z23 Encounter for immunization; Z88.2 Allergy status to sulfonamides; Z78.1 Physical restraint status
CPT/HCPCS: 36415; 51701; 70450; 71010; 80048; 80053; 81001; 82550; 82553; 82962; 83036; 83735; 84484; 85025; 85610; 87040; 87086; 90686; 93005; 93010; 96365; 96375; 99285; G8978-GP; G8979-GP; J0696; J1630; J1650; J1815; J2060; J2270; J3475; J3480; J3490; J7030

== ENCOUNTER 2017-04-02 14:35 | Inpatient (IN) | payer MEDICARE ==
[2017-04-02] MEDS ORDERED: DEXTROSE 40% GEL 15 GM TUBE X 2 PO PRN (16:26)
[2017-04-02] MEDS ORDERED: GLUCAGON,HUMAN RECOMB 1 MG INJ IM PRN (16:26)
[2017-04-02] MEDS ORDERED: INSULIN LISPRO 100 UNIT/ML 3 ML VIAL SUBCUT PRN (16:26)
[2017-04-02] MEDS ORDERED: DEXTROSE 50%-WATER SYRINGE 25 GM/50 ML DOSE IV PRN (16:26)
[2017-04-02] MEDS ORDERED: DEXTROSE 50%-WATER SYRINGE 12.5 GM/25 ML DOSE IV PRN (16:26)
[2017-04-02] MEDS ORDERED: DEXTROSE 40% GEL 15 GM TUBE PO PRN (16:26)
--- NOTE | 2017-04-02 17:24 | RADIOLOGY REPORT (SQ) ---
EXAM DESCRIPTION: CHEST SINGLE VIEW COMPLETED DATE/TIME: 04/02/2017 4:51 pm REASON FOR STUDY: SYMPTOPMATIC DIZZINESS COMPARISON: 02/08/2016, 07/07/2016, 12/16/2016 chest films EXAM PARAMETERS: NUMBER OF VIEWS: One view. TECHNIQUE: Single frontal radiographic view of the chest acquired. RADIATION DOSE: NA LIMITATIONS: None. FINDINGS: LUNGS AND PLEURA: No opacities, masses or pneumothorax. No pleural effusion. MEDIASTINUM AND HILAR STRUCTURES: No masses. Contour normal. HEART AND VASCULAR STRUCTURES: Stable mild cardiomegaly. Left coronary stent. BONES: No acute findings. HARDWARE: Unchanged left-sided single lead pacemaker OTHER: No other significant finding. IMPRESSION: NO ACUTE RADIOGRAPHIC FINDING IN THE CHEST. TECHNICAL DOCUMENTATION: JOB ID: [id number] [employer]- All Rights Reserved
[2017-04-02 18:01] LABS: ABSOLUTE EOSINOPHILS # (AUTO) 0.1 10^3/uL (0.0-0.6); ABSOLUTE LYMPHOCYTES (AUTO) 1.9 10^3/uL (0.5-4.7); ABSOLUTE MONOCYTES (AUTO) 0.4 10^3/uL (0.1-1.4); ABSOLUTE NEUT (AUTO) 5.7 10^3/uL (1.7-8.2); BASOPHILS % (AUTO) 0.3 % (0-2); EOSINOPHILS % (AUTO) 1.2 % (0-6); HEMATOCRIT 33.1 % (36.0-47.0); HEMOGLOBIN 11.1 g/dL (12.0-15.5); LYMPHOCYTES % (AUTO) 23.7 % (13-45); MEAN CORPUSCULAR HEMOGLOBIN 26.7 pg (27.0-33.4); MEAN CORPUSCULAR HGB CONC 33.4 g/dL (32.0-36.0); MEAN CORPUSCULAR VOLUME 80 fl (80-97); MONOCYTES % (AUTO) 5.5 % (3-13); PLATELET COUNT 208 10^3/uL (150-450); RED BLOOD COUNT 4.14 10^6/uL (3.72-5.28); RED CELL DISTRIBUTION WIDTH 14.6 % (11.5-14.0); SEGMENTED NEUTROPHILS % (AUTO) 69.3 % (42-78); TOTAL CELLS COUNTED % (AUTO) 100 %; WHITE BLOOD COUNT 8.2 10^3/uL (4.0-10.5)
[2017-04-02 18:15] LABS: PARTIAL THROMBOPLASTIN TIME 28.8 SEC (23.5-35.8)
--- NOTE | 2017-04-02 18:24 | PDOC H&P ---
History of Present Illness Admission Date/PCP: 04/02/17 14:35 PONCHOASIA CONTRERAS Patient complains of: Dizziness History of Present Illness: RICARDO HOLM is a 66 year old female known to my practice presented to the office earlier today as walk-in visit for evaluation of new onset dizziness. She claimed that symptom onset was about 2 days ago, 03/31/17, but have worsening and limited her activities of daily living. She reported associated nausea but no vomiting. She described dizziness with spinning sensation. She claimed that her symptom is worsen with change in her position from sitting to standing and with rapid movement. She is not aware of her blood pressure but narrated multiple near fall episodes. She claimed that her last episode was more than 60 minutes in duration and she had recurrent episodes all day yesterday. There is associated headache, vision change and home blood glucose reading over 150mg/dL. She reported weakness in her legs but has history of prior stroke and ambulate with straight cane assistance. She denied any fever but always feel cold. She reported development of boil over right buttock region that she lanced and have been applying Neosporin at home for couple of days. She claimed compliance with her medication management at home. Her initial evaluation in the office was remarkable for leukocytosis and slight non- orthostatic drop in her blood pressure. In view of her associated symptoms ad laboratory findings, she was advised hospitalization for further evaluation and management. Past Medical History Cardiac Medical History: Reports: Myocardial Infarction, Hyperlipidema, Hypertension Denies: Congestive Heart Failure Pulmonary Medical History: Reports: Chronic Obstructive Pulmonary Disease (COPD) Denies: Asthma, Bronchitis, Pneumonia, Tuberculosis Neurological Medical History: Denies: Seizures Endocrine Medical History: Reports: Diabetes Mellitus Type 2 Renal/ Medical History: Denies: End Stage Renal Disease GI Medical History: Reports: Gastroesophageal Reflux Disease Denies: Cirrhosis Musculoskeltal Medical History: Denies: Arthritis Psychiatric Medical History: Reports: Depression Denies: Bipolar Disorder Hematology: Reports: Anemia Denies: Bleeding Tendencies Past Surgical History Past Surgical History: Reports: Cardiac Catheterization, Cholecystectomy, Hysterectomy, Pacemaker, Other - Pacemaker defibrillator placement Social History Smoking Status: Never Smoker Frequency of Alcohol Use: None Hx Recreational Drug Use: No Drugs: None Hx Prescription Drug Abuse: No - Advance Directive Resuscitation Status: Full Code Family History Family History: CAD, Hypertension Parental Family History Reviewed: Yes Children Family History Reviewed: Yes Sibling(s) Family History Reviewed.: Yes Medication/Allergy Home Medications: Atorvastatin Calcium [Lipitor 80 mg Tablet] 80 mg PO DAILY 04/02/17 Carvedilol [Coreg 6.25 mg Tablet] 6.25 mg PO Q12 04/02/17 Ezetimibe [Zetia 10 mg Tablet] 10 mg PO DAILY 04/02/17 Fluticasone/Vilanterol [Breo Ellipta 100-25 Mcg INH] 1 puff IH DAILY 04/02/17 Lamotrigine [Lamictal] 25 mg PO Q12 04/02/17 Levetiracetam [Keppra 500 mg Tablet] 500 mg PO Q12 04/02/17 Linagliptin [Tradjenta] 5 mg PO DAILY 04/02/17 Losartan Potassium [Cozaar 50 mg Tablet] 50 mg PO DAILY 04/02/17 Nateglinide [Starlix 60 Mg Tablet] 60 mg PO Q8 04/02/17 Pantoprazole Sodium [Protonix] 40 mg PO DAILY 04/02/17 Sertraline HCl [Zoloft 50 mg Tablet] 50 mg PO DAILY 04/02/17 Allergies/Adverse Reactions: iodine [Iodine] Allergy (Verified 12/16/16 13:14) Sulfa (Sulfonamide Antibiotics) Allergy (Verified 12/16/16 13:14) Fish Allergy (Severe, Uncoded 12/16/16 13:14) Review of Systems Constitutional: PRESENT: chills, weakness. ABSENT: fever(s), headache(s) Eyes: PRESENT: visual disturbances Ears: ABSENT: hearing changes Nose, Mouth, and Throat: PRESENT: vertigo. ABSENT: as per HPI, headache(s), mouth pain, sore throat, other Cardiovascular: ABSENT: chest pain, dyspnea on exertion, edema, orthropnea, palpitations Respiratory: ABSENT: cough, hemoptysis Gastrointestinal: PRESENT: diarrhea - as per report of admiting nursing staff, nausea. ABSENT: abdominal pain, coffee ground emesis, hematemesis, hematochezia , melena, vomiting Genitourinary: PRESENT: other - incontinence of urine. ABSENT: difficulty urinating, dysuria, hematuria, nocturia Integumentary: PRESENT: lesions - right buttock abscess Neurological: PRESENT: abnormal gait, syncope, vertigo, weakness Psychiatric: ABSENT: anxiety, depression, homidical ideation, suicidal ideation Endocrine: ABSENT: cold intolerance, flushing, heat intolerance, polydipsia, polyphagia, polyuria Hematologic/Lymphatic: ABSENT: easy bleeding, easy bruising, lymphadenopathy Allergic/Immunologic: ABSENT: seasonal rhinorrhea Physical Exam Vital Signs: Temp Pulse Resp BP Pulse Ox 98.2 F 62 18 136/58 H 100 04/02/17 15:41 04/02/17 15:41 04/02/17 15:41 04/02/17 15:41 04/02/17 15:41 Intake & Output 04/01/17 04/02/17 04/03/17 06:59 06:59 06:59 Intake Total 120 Balance 120 Weight 89.7 kg General appearance: PRESENT: mild distress - due to ongoing acute illness and problem Head exam: PRESENT: atraumatic, normocephalic Eye exam: PRESENT: conjunctiva pink, EOMI, PERRLA. ABSENT: scleral icterus Ear exam: PRESENT: normal external ear exam Mouth exam: PRESENT: moist, tongue midline Neck exam: PRESENT: full ROM. ABSENT: carotid bruit, JVD, lymphadenopathy, thyromegaly Respiratory exam: PRESENT: clear to auscultation fred, decreased breath sounds - at lung bases Cardiovascular exam: PRESENT: RRR. ABSENT: diastolic murmur, rubs, systolic murmur Pulses: PRESENT: normal dorsalis pedis pul, +2 pedal pulses bilateral Vascular exam: PRESENT: normal capillary refill. ABSENT: pallor GI/Abdominal exam: PRESENT: normal bowel sounds, soft. ABSENT: distended, guarding, mass, organolmegaly, rebound, tenderness Rectal exam: PRESENT: deferred Extremities exam: ABSENT: pedal edema Musculoskeletal exam: PRESENT: deformity - related to multiple joints involvement with arthritis Neurological exam: PRESENT: alert, awake, oriented to person, oriented to place , oriented to time, oriented to situation, CN II-XII grossly intact. ABSENT: motor sensory deficit Psychiatric exam: PRESENT: appropriate affect, normal mood. ABSENT: homicidal ideation, suicidal ideation Skin exam: PRESENT: erythema - superficial, over lateral region of right buttock. No drainage or discharge. Noo significant elicited tenderness to palpation Results Laboratory Results: Lab result not available on [employer] system at the time of my evaluation. Copy of office note and lab results form significant aspect of my medical decision making in this case. Impressions: Chest X-Ray 04/02/17 15:09 IMPRESSION: NO ACUTE RADIOGRAPHIC FINDING IN THE CHEST. Assessment & Plan - Diagnosis (1) Probable sepsis Is this a current diagnosis for this admission?: Yes Plan: See admitting physician orders. (2) Dizziness of unknown cause Is this a current diagnosis for this admission?: Yes Plan: See admitting physician orders. (3) Cellulitis of buttock, right Is this a current diagnosis for this admission?: Yes Plan: See admitting physician orders. (4) Diabetes mellitus type 2 in obese Is this a current diagnosis for this admission?: Yes Plan: See admitting physician orders. (5) Essential hypertension Is this a current diagnosis for this admission?: Yes (6) Old cardioembolic stroke with hemiparesis of dominant side Is this a current diagnosis for this admission?: Yes Plan: See admitting physician orders. (7) Hyperlipidemia Qualifiers: Hyperlipidemia type: pure hypercholesterolemia Qualified Code(s): E78.00 - Pure hypercholesterolemia, unspecified; E78.0 - Pure hypercholesterolemia Is this a current diagnosis for this admission?: Yes Plan: See admitting physician orders. (8) Coronary artery disease Qualifiers: Coronary Disease-Associated Artery/Lesion type: [place] artery [place] vs. transplanted heart: [place] heart Associated angina: angina presence unspecified Qualified Code(s): I25.10 - Atherosclerotic heart disease of [place] coronary artery without angina pectoris Is this a current diagnosis for this admission?: Yes Plan: See admitting physician orders. (9) Implantable cardioverter-defibrillator (ICD) discharge Is this a current diagnosis for this admission?: Yes Plan: See admitting physician orders. - Time Time Spent: 50 to 70 Minutes Medications reviewed and adjusted accordingly: Yes Anticipated discharge: Home with Homehealth Within: within 48 hours, Other - Plan Summary Plan Summary: See admitting physician orders.
[2017-04-02 18:30] LABS: ALANINE AMINOTRANSFERASE 16 U/L (9-52); ALBUMIN 3.6 g/dL (3.5-5.0); ALKALINE PHOSPHATASE 70 U/L (38-126); ANION GAP 9 (5-19); ASPARTATE AMINO TRANSFERASE 15 U/L (14-36); BILIRUBIN,DIRECT 0.2 mg/dL (0.0-0.4); BILIRUBIN,TOTAL 0.8 mg/dL (0.2-1.3); BLOOD UREA NITROGEN 17 mg/dL (7-20); CALCIUM 9.7 mg/dL (8.4-10.2); CARBON DIOXIDE 24 mmol/L (22-30); CHLORIDE 107 mmol/L (98-107); GLUCOSE 121 mg/dL (75-110); POTASSIUM 3.7 mmol/L (3.6-5.0); SODIUM 140.1 mmol/L (137-145); TOTAL PROTEIN 6.2 g/dL (6.3-8.2)
[2017-04-02] MEDS ORDERED: ERTAPENEM SODIUM 1 GM in NORMAL SALINE 50 ML IV ONE (18:30)
--- NOTE | 2017-04-02 19:27 | RADIOLOGY REPORT (SQ) ---
EXAM DESCRIPTION: CT HEAD WITHOUT COMPLETED DATE/TIME: 04/02/2017 7:17 pm REASON FOR STUDY: Severe dizziness, Old stroke with rt. hemiparesis D69.6 THROMBOCYTOPENIA, UNSPEC IFIED A40.9 STREPTOCOCCAL SEPSIS, UNSPECIFIED R42 DIZZINESS AND GIDDINESS COMPARISON: 12/16/2016. TECHNIQUE: Axial images acquired through the brain without intravenous contrast. Images reviewed wi th bone, brain and subdural windows. Images stored on PACS. All CT scanners at this facility use dose modulation, iterative reconstruction, and/or weight based d osing when appropriate to reduce radiation dose to as low as reasonably achievable (ALARA). [facility]: Dose Right [facility]: CareDose [facility]: Dose Right [facility]: Teradose 4D [facility]: Smart Quantros RADIATION DOSE: CT Rad equipment meets quality standard of care and radiation dose reduction techniq ues were employed. CTDIvol: 64.6 mGy. DLP: 1034 mGy-cm. mGy. LIMITATIONS: None. FINDINGS: VENTRICLES: Age-appropriate. Mild ex vacuo dilatation of the left frontal horn related to adjacent chronic lacunar infarcts. No ventricular hemorrhage or mass evident. CEREBRUM: No masses. No hemorrhage. No midline shift. No evidence for acute infarction. Old right MCA distribution infarct. Patchy multifocal additional deep white matter low density regions, stable in distribution. CEREBELLUM: No masses. No hemorrhage. No alteration of density. No evidence for acute infarction. EXTRAAXIAL SPACES: No fluid collections. No masses. ORBITS AND GLOBE: No intra- or extraconal masses. Normal contour of globe without masses. CALVARIUM: No fracture. PARANASAL SINUSES: No fluid or mucosal thickening. SOFT TISSUES: No mass or hematoma. OTHER: No other significant finding. IMPRESSION: 1. Stable chronic intracranial changes. Small vessel disease and old right MCA distribu tion infarct. EVIDENCE OF ACUTE STROKE: NO. COMMENT: Quality ID # [id number]: Final reports with documentation of one or more dose reduction techniques (e.g., Automated exposure control, adjustment of the mA and/or kV according to patient size, use of iterative reconstruction technique) TECHNICAL DOCUMENTATION: JOB ID: [id number] [employer]- All Rights Reserved
[2017-04-02] MEDS: NORMAL SALINE 1000 ML 1,000 ML IV PRN (20:42)
[2017-04-02] MEDS ORDERED: (PENDING PHARMACY ID) (Lamotrigine [Lamictal] 25 MG) PO SCH (22:00)
[2017-04-02] MEDS: LEVETIRACETAM 500 MG TABLET PO SCH (22:27)
[2017-04-02] MEDS: NATEGLINIDE 60 MG TABLET PO SCH (22:28)
[2017-04-02] MEDS: LAMOTRIGINE 25 MG TAB.CHEW PO SCH (22:28)
[2017-04-02] MEDS: CARVEDILOL 6.25 MG TABLET PO SCH (22:28)
[2017-04-03] MEDS: NATEGLINIDE 60 MG TABLET PO SCH ×2 (07:02→18:14)
[2017-04-03] MEDS: LANSOPRAZOLE 30 MG TAB.RAP.DR PO SCH (07:02)
--- NOTE | 2017-04-03 09:59 | PDOC PROGRESS REPORT ---
Subjective Progress Note for:: 04/03/17 Subjective:: Patient continue to report episodes of dizziness, nausea and diarrhea. She reported associated abdominal pain. No chest pain or difficulty with breathing. Her head CT scan was devoid of any acute pathologic process. She refused central line placement. No reported fever but claimed chills. Reason For Visit: SEPSIS, R BUTTOCKS CELLULITIS, SYMPOTMATIC Physical Exam Vital Signs: Temp Pulse Resp BP Pulse Ox 97.8 F 65 17 150/80 H 98 04/03/17 07:00 04/03/17 07:00 04/03/17 07:00 04/03/17 07:00 04/03/17 07:00 Intake & Output 04/02/17 04/03/17 04/04/17 06:59 06:59 06:59 Intake Total 238 Balance 238 Weight 89.7 kg General appearance: PRESENT: no acute distress, well-developed, well-nourished Head exam: PRESENT: atraumatic, normocephalic Eye exam: PRESENT: conjunctiva pink, EOMI, PERRLA. ABSENT: scleral icterus Respiratory exam: PRESENT: clear to auscultation fred, decreased breath sounds - at lung bases Cardiovascular exam: PRESENT: RRR. ABSENT: diastolic murmur, rubs, systolic murmur GI/Abdominal exam: PRESENT: normal bowel sounds, tenderness - nonspecific lower quadrants expressed tenderness to palpation. ABSENT: ascites, guarding, mass, organolmegaly, rebound Extremities exam: ABSENT: pedal edema Neurological exam: PRESENT: alert, awake, oriented to person, oriented to place , oriented to time, oriented to situation, CN II-XII grossly intact. ABSENT: motor sensory deficit Psychiatric exam: PRESENT: appropriate affect, normal mood. ABSENT: homicidal ideation, suicidal ideation Skin exam: PRESENT: dry, intact, warm, other - right buttock region minimal cellulitis with superficial wound. ABSENT: cyanosis Results Laboratory Results: 04/02/17 17:45 04/02/17 17:45 04/02/17 04/02/17 17:45 17:45 WBC 8.2 RBC 4.14 Hgb 11.1 L Hct 33.1 L MCV 80 MCH 26.7 L MCHC 33.4 RDW 14.6 H Plt Count 208 Seg Neutrophils % 69.3 Lymphocytes % 23.7 Monocytes % 5.5 Eosinophils % 1.2 Basophils % 0.3 Absolute Neutrophils 5.7 Absolute Lymphocytes 1.9 Absolute Monocytes 0.4 Absolute Eosinophils 0.1 Absolute Basophils 0.0 Sodium 140.1 Potassium 3.7 Chloride 107 Carbon Dioxide 24 Anion Gap 9 BUN 17 Creatinine 1.06 Est GFR ( Amer) > 60 Est GFR (Non-Af Amer) 52 L Glucose 121 H Calcium 9.7 Total Bilirubin 0.8 AST 15 ALT 16 Alkaline Phosphatase 70 Total Protein 6.2 L Albumin 3.6 Impressions: Head CT 04/02/17 00:00 IMPRESSION: 1. Stable chronic intracranial changes. Small vessel disease and old right MCA distribution infarct. EVIDENCE OF ACUTE STROKE: NO. Chest X-Ray 04/02/17 15:09 IMPRESSION: NO ACUTE RADIOGRAPHIC FINDING IN THE CHEST. Assessment & Plan - Diagnosis (1) Probable sepsis Is this a current diagnosis for this admission?: Yes (2) Dizziness of unknown cause Is this a current diagnosis for this admission?: Yes (3) Cellulitis of buttock, right Is this a current diagnosis for this admission?: Yes (4) Diabetes mellitus type 2 in obese Is this a current diagnosis for this admission?: Yes (5) Essential hypertension Is this a current diagnosis for this admission?: Yes (6) Old cardioembolic stroke with hemiparesis of dominant side Is this a current diagnosis for this admission?: Yes (7) Hyperlipidemia Qualifiers: Hyperlipidemia type: pure hypercholesterolemia Qualified Code(s): E78.00 - Pure hypercholesterolemia, unspecified; E78.0 - Pure hypercholesterolemia Is this a current diagnosis for this admission?: Yes (8) Coronary artery disease Qualifiers: Coronary Disease-Associated Artery/Lesion type: [place] artery [place] vs. transplanted heart: [place] heart Associated angina: angina presence unspecified Qualified Code(s): I25.10 - Atherosclerotic heart disease of [place] coronary artery without angina pectoris Is this a current diagnosis for this admission?: Yes (9) Implantable cardioverter-defibrillator (ICD) discharge Is this a current diagnosis for this admission?: Yes - Time Time Spent with patient: 25-34 minutes Medications reviewed and adjusted accordingly: Yes Anticipated discharge: Home with Homehealth Within: Other - Inpatient Certification Based on my medical assessment, after consideration of the patient's comorbidities, presenting symptoms, or acuity I expect that the services needed warrant INPATIENT care.: Yes I certify that my determination is in accordance with my understanding of Medicare's requirements for reasonable and necessary INPATIENT services [42 CFR 412.3e].: Yes Medical Necessity: Need Close Monitoring Due to Risk of Patient Decompensation, Need For IV Fluids, Need For Continuous Telemetry Monitoring, Need for IV Antibiotics, Risk of Complication if Not Cared For in Hospital Post Hospital Care: D/C Sales Representative Graphic Art Documentation - Plan Summary Plan Summary: Obtain stool for C.difficile toxin titer, WBC smear and culture. Continue IV fluid and Invanz coverage. Follow up on blood culture. Maintain on all other current medication management. Change admission status to full admission.
[2017-04-03] MEDS ORDERED: (PENDING PHARMACY ID) (Linagliptin [Tradjenta] 5 MG) PO SCH (10:00)
[2017-04-03] MEDS ORDERED: (PENDING PHARMACY ID) (Fluticasone/Vilanterol [Breo Ellipta 100-25 Mcg Inh] 1 PUFF) IH SCH (10:00)
[2017-04-03] MEDS: SITAGLIPTIN PHOSPHATE 50 MG TABLET PO SCH (12:06)
[2017-04-03] MEDS: ENOXAPARIN SODIUM INJ 40 MG/0.4 ML DISP.SYRIN SUBCUT SCH (12:09)
[2017-04-03] MEDS: ATORVASTATIN CALCIUM 80 MG TABLET PO SCH (12:09)
[2017-04-03] MEDS: LEVETIRACETAM 500 MG TABLET PO SCH ×2 (12:12→22:56)
[2017-04-03] MEDS: SERTRALINE HCL 50 MG TABLET PO SCH (12:12)
[2017-04-03] MEDS: LOSARTAN POTASSIUM 50 MG TABLET PO SCH (12:12)
[2017-04-03] MEDS: EZETIMIBE 10 MG TABLET PO SCH (12:13)
[2017-04-03] MEDS: LAMOTRIGINE 25 MG TAB.CHEW PO SCH ×2 (12:13→22:56)
[2017-04-03] MEDS: CARVEDILOL 6.25 MG TABLET PO SCH ×2 (12:13→22:56)
[2017-04-03] MEDS: ERTAPENEM SODIUM 1 GM in NORMAL SALINE 50 ML IV SCH (18:15)
[2017-04-04] MEDS: LANSOPRAZOLE 30 MG TAB.RAP.DR PO SCH (06:59)
[2017-04-04 07:26] LABS: APPEARANCE,URINE CLOUDY; BILIRUBIN,URINE NEGATIVE (NEGATIVE); COLOR,URINE YELLOW; GLUCOSE, URINE NEGATIVE (NEGATIVE); KETONES,URINE NEGATIVE (NEGATIVE); LEUKOCYTE ESTERASE,URINE LARGE (NEGATIVE); NITRITE,URINE NEGATIVE (NEGATIVE); PROTEIN,URINE NEGATIVE (NEGATIVE); URINE SPECIFIC GRAVITY 1.011; UROBILINOGEN,URINE NEGATIVE mg/dL (<2.0)
[2017-04-04] MEDS: LOSARTAN POTASSIUM 50 MG TABLET PO SCH (09:45)
[2017-04-04] MEDS: SITAGLIPTIN PHOSPHATE 50 MG TABLET PO SCH (09:45)
[2017-04-04] MEDS: CARVEDILOL 6.25 MG TABLET PO SCH ×2 (09:45→21:34)
[2017-04-04] MEDS: SERTRALINE HCL 50 MG TABLET PO SCH (09:45)
[2017-04-04] MEDS: EZETIMIBE 10 MG TABLET PO SCH (09:45)
[2017-04-04] MEDS: NATEGLINIDE 60 MG TABLET PO SCH ×3 (09:45→18:11)
[2017-04-04] MEDS: ATORVASTATIN CALCIUM 80 MG TABLET PO SCH (09:45)
[2017-04-04] MEDS: LEVETIRACETAM 500 MG TABLET PO SCH ×2 (09:45→21:36)
[2017-04-04] MEDS: LAMOTRIGINE 25 MG TAB.CHEW PO SCH ×2 (09:45→21:35)
[2017-04-04] MEDS: ENOXAPARIN SODIUM INJ 40 MG/0.4 ML DISP.SYRIN SUBCUT SCH (09:46)
--- NOTE | 2017-04-04 15:46 | RADIOLOGY REPORT (SQ) ---
EXAM DESCRIPTION: PICC INSERTION; U/S GUIDE FOR VASCULAR ACCESS; FLUORO/CV PLACEMENT COMPLETED DATE/TIME: 04/04/2017 3:23 pm; 04/04/2017 3:24 pm REASON FOR STUDY: UNABLE TO ESTABLISH PERIPHERAL; IV ACCESS D69.6 THROMBOCYTOPENIA, UNSPECIFIED A4 0.9 STREPTOCOCCAL SEPSIS, UNSPECIFIED R42 DIZZINESS AND GIDDINESS COMPARISON: None. FLUOROSCOPY TIME: 25 seconds One ultrasound and one digital fluoro image saved to PACS. TECHNIQUE: Fluoroscopic and ultrasound guided PICC placement. LIMITATIONS: None. PROCEDURE: After written consent and assessment were obtained, the patient was brought into the fluo roscopy room and place supine on the table. Ultrasound was used on the patient's right arm for PICC access. The right arm was prepped and draped in a sterile fashion along with the ultrasound probe. Th e entry site was anesthetized with 1% lidocaine. A 21 gauge 7 cm needle was advanced through the skin and into the basilic vein under live ultrasound guidance. An ultrasound image was saved to PACS con firming access site. A .018 guide wire was then inserted through the needle and into the venous syst em. The needle was the removed and an 11 blade scalpel was used to make a 1cm skin incision. A 5 fr peel-away sheath was advanced over the wire and into the venous system. A measurement was then made u sing the existing wire and live fluoroscopic guidance. The wire was then removed and the trimmed. The PICC was advanced through the peel-away sheath and into the venous system. The peel-away sheath was removed and the catheter was adhered to the patients arm with a stat lock. The catheter was then aspi rated and flushed and a sterile bandage was placed over the access site. A fluoroscopic spot image w as saved to PACS confirming the catheter tip within the superior vena cava. IMPRESSION: SUCCESSFUL PLACEMENT OF A 5 FR DUAL LUMEN 29 CM PICC IN THE RIGHT BASILIC VEIN. COMMENT: Patient medication list reviewed: Yes- Quality ID# [id number]:Eligible professional attests to doc umenting in the medical record they obtained, updated, or reviewed the patient's current medications. . Quality ID 145: Final reports for procedures using fluoroscopy that document radiation exposure aly dai, or exposure time and number of fluorographic images (if radiation exposure indices are not avail able) Quality ID #76: The patient was prepped and draped using maximum sterile barrier technique including cap, mask, sterile gown, sterile gloves, a large sterile sheet, hand hygiene, and 2% Chlorhexidine fo r cutaneous antisepsis. When ultrasound is used, sterile ultrasound techniques are followed requiring sterile gel and sterile probes. TECHNICAL DOCUMENTATION: JOB ID: [id number] [email or web address]- All Rights Reserved
[2017-04-04] MEDS ORDERED: METRONIDAZOLE 500 MG TABLET PO ONE (17:30)
--- NOTE | 2017-04-04 18:08 | PDOC PROGRESS REPORT ---
Subjective Progress Note for:: 04/04/17 Subjective:: Patient reported some improvement in her diarrhea and dizziness so far today. No chest pain or difficulty with breathing. No reported fever or chills. Agreeable to PICC line placement earlier today. Reason For Visit: PROBABLE SEPSIS,R BUTTOCKS CELLULITIS, SYMPTOMATIC Physical Exam Vital Signs: Temp Pulse Resp BP Pulse Ox 98.0 F 62 18 158/80 H 97 04/04/17 11:48 04/04/17 11:48 04/04/17 11:48 04/04/17 11:48 04/04/17 11:48 Intake & Output 04/03/17 04/04/17 04/05/17 06:59 06:59 06:59 Intake Total 238 1160 Output Total 200 Balance 238 960 Weight 89.7 kg Physical Exam: General appearance: PRESENT: no acute distress, well-developed, well-nourished Head exam: PRESENT: atraumatic, normocephalic Eye exam: PRESENT: conjunctiva pink, EOMI, PERRLA. ABSENT: scleral icterus Respiratory exam: PRESENT: clear to auscultation fred, decreased breath sounds - at lung bases Cardiovascular exam: PRESENT: RRR. ABSENT: diastolic murmur, rubs, systolic murmur GI/Abdominal exam: PRESENT: normal bowel sounds. ABSENT: ascites, tenderness, guarding, mass, organolmegaly, rebound Extremities exam: ABSENT: pedal edema Neurological exam: PRESENT: alert, awake, oriented to person, oriented to place , oriented to time, oriented to situation, CN II-XII grossly intact. ABSENT: motor sensory deficit Psychiatric exam: PRESENT: appropriate affect, normal mood. ABSENT: homicidal ideation, suicidal ideation Skin exam: PRESENT: dry, intact, warm, other - improving right buttock region minimal cellulitis with superficial wound. ABSENT: cyanosis Results Laboratory Results: 04/02/17 17:45 04/02/17 17:45 04/04/17 04/04/17 06:45 12:24 Urine Color YELLOW Urine Appearance CLOUDY Urine pH 6.0 Ur Specific [place] 1.011 Urine Protein NEGATIVE Urine Glucose (UA) NEGATIVE Urine Ketones NEGATIVE Urine Blood SMALL H Urine Nitrite NEGATIVE Ur Leukocyte Esterase LARGE H Urine WBC (Auto) 39 Urine RBC (Auto) 10 Stool for White Cells NO WBCs SEEN Impressions: Head CT 04/02/17 00:00 IMPRESSION: 1. Stable chronic intracranial changes. Small vessel disease and old right MCA distribution infarct. EVIDENCE OF ACUTE STROKE: NO. Chest X-Ray 04/02/17 15:09 IMPRESSION: NO ACUTE RADIOGRAPHIC FINDING IN THE CHEST. Guidance Fluoroscopy 04/04/17 00:00 IMPRESSION: SUCCESSFUL PLACEMENT OF A 5 FR DUAL LUMEN 29 CM PICC IN THE RIGHT BASILIC VEIN. Interventional Vascular Procedure 04/04/17 00:00 IMPRESSION: SUCCESSFUL PLACEMENT OF A 5 FR DUAL LUMEN 29 CM PICC IN THE RIGHT BASILIC VEIN. PICC Line Insertion 04/04/17 00:00 IMPRESSION: SUCCESSFUL PLACEMENT OF A 5 FR DUAL LUMEN 29 CM PICC IN THE RIGHT BASILIC VEIN. 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 transplanted heart: [place] heart Associated angina: angina presence unspecified Qualified Code(s): I25.10 - Atherosclerotic heart disease of [place] coronary artery without angina pectoris Is this a current diagnosis for this admission?: Yes (9) Implantable cardioverter-defibrillator (ICD) discharge Is this a current diagnosis for this admission?: Yes (10) C. difficile colitis Is this a current diagnosis for this admission?: Yes Plan: See attending physician orders. - Time Time Spent with patient: 25-34 minutes Medications reviewed and adjusted accordingly: Yes Anticipated discharge: Home with Homehealth - Inpatient Certification Based on my medical assessment, after consideration of the patient's comorbidities, presenting symptoms, or acuity I expect that the services needed warrant INPATIENT care.: Yes I certify that my determination is in accordance with my understanding of Medicare's requirements for reasonable and necessary INPATIENT services [42 CFR 412.3e].: Yes Medical Necessity: Need Close Monitoring Due to Risk of Patient Decompensation, Need For IV Fluids, Need For Continuous Telemetry Monitoring, Need for IV Antibiotics, Risk of Complication if Not Cared For in Hospital Post Hospital Care: D/C Python Engineer Documentation - Plan Summary Plan Summary: See attending physician orders.
[2017-04-04] MEDS: ERTAPENEM SODIUM 1 GM in NORMAL SALINE 50 ML IV SCH (18:11)
[2017-04-04] MEDS ORDERED: NORMAL SALINE 10 ML SDV (AFTER EACH USE) IV PRN (19:28)
[2017-04-04] MEDS: METRONIDAZOLE 500 MG TABLET PO SCH (21:34)
[2017-04-04] MEDS: NORMAL SALINE 10 ML SDV (SCHEDULED) IV SCH (21:34)
[2017-04-05] MEDS: NORMAL SALINE 1000 ML 1,000 ML IV PRN ×2 (01:45→11:24)
[2017-04-05] MEDS: LANSOPRAZOLE 30 MG TAB.RAP.DR PO SCH (05:49)
[2017-04-05] MEDS: METRONIDAZOLE 500 MG TABLET PO SCH ×3 (05:49→22:13)
[2017-04-05 06:20] LABS: ABSOLUTE BASOPHILS # (AUTO) 0.1 10^3/uL (0.0-0.2); ABSOLUTE EOSINOPHILS # (AUTO) 0.2 10^3/uL (0.0-0.6); ABSOLUTE LYMPHOCYTES (AUTO) 1.8 10^3/uL (0.5-4.7); ABSOLUTE MONOCYTES (AUTO) 0.5 10^3/uL (0.1-1.4); ABSOLUTE NEUT (AUTO) 5.1 10^3/uL (1.7-8.2); BASOPHILS % (AUTO) 0.7 % (0-2); EOSINOPHILS % (AUTO) 2.2 % (0-6); HEMATOCRIT 33.8 % (36.0-47.0); HEMOGLOBIN 11.3 g/dL (12.0-15.5); LYMPHOCYTES % (AUTO) 23.9 % (13-45); MEAN CORPUSCULAR HEMOGLOBIN 26.8 pg (27.0-33.4); MEAN CORPUSCULAR HGB CONC 33.4 g/dL (32.0-36.0); MEAN CORPUSCULAR VOLUME 80 fl (80-97); MONOCYTES % (AUTO) 6.1 % (3-13); PLATELET COUNT 209 10^3/uL (150-450); RED BLOOD COUNT 4.21 10^6/uL (3.72-5.28); SEGMENTED NEUTROPHILS % (AUTO) 67.1 % (42-78); TOTAL CELLS COUNTED % (AUTO) 100 %; WHITE BLOOD COUNT 7.5 10^3/uL (4.0-10.5)
[2017-04-05 06:42] LABS: ALANINE AMINOTRANSFERASE 18 U/L (9-52); ALBUMIN 3.5 g/dL (3.5-5.0); ALKALINE PHOSPHATASE 72 U/L (38-126); ANION GAP 11 (5-19); ASPARTATE AMINO TRANSFERASE 14 U/L (14-36); BILIRUBIN,DIRECT 0.1 mg/dL (0.0-0.4); BILIRUBIN,TOTAL 0.4 mg/dL (0.2-1.3); BLOOD UREA NITROGEN 8 mg/dL (7-20); CALCIUM 9.2 mg/dL (8.4-10.2); CARBON DIOXIDE 23 mmol/L (22-30); CHLORIDE 109 mmol/L (98-107); GLUCOSE 97 mg/dL (75-110); POTASSIUM 3.7 mmol/L (3.6-5.0); SODIUM 143.3 mmol/L (137-145)
[2017-04-05] MEDS: NATEGLINIDE 60 MG TABLET PO SCH ×3 (07:42→17:53)
[2017-04-05] MEDS: EZETIMIBE 10 MG TABLET PO SCH (10:35)
[2017-04-05] MEDS: SERTRALINE HCL 50 MG TABLET PO SCH (10:35)
[2017-04-05] MEDS: CARVEDILOL 6.25 MG TABLET PO SCH ×2 (10:35→22:13)
[2017-04-05] MEDS: LOSARTAN POTASSIUM 50 MG TABLET PO SCH (10:36)
[2017-04-05] MEDS: ATORVASTATIN CALCIUM 80 MG TABLET PO SCH (10:36)
[2017-04-05] MEDS: LAMOTRIGINE 25 MG TAB.CHEW PO SCH ×2 (10:36→22:13)
[2017-04-05] MEDS: SITAGLIPTIN PHOSPHATE 50 MG TABLET PO SCH (10:36)
[2017-04-05] MEDS: LEVETIRACETAM 500 MG TABLET PO SCH ×2 (10:36→22:13)
[2017-04-05] MEDS: NORMAL SALINE 10 ML SDV (SCHEDULED) IV SCH ×2 (10:37→22:32)
[2017-04-05] MEDS: ENOXAPARIN SODIUM INJ 40 MG/0.4 ML DISP.SYRIN SUBCUT SCH (10:38)
--- NOTE | 2017-04-05 13:22 | PDOC PROGRESS REPORT ---
Subjective Progress Note for:: 04/05/17 Subjective:: Patient reported no diarrhea so far today. She continue to experience dizziness with postural change as per her report. No chest pain or difficulty with breathing. No reported fever or chills. Reason For Visit: PROBABLE SEPSIS,R BUTTOCKS CELLULITIS, SYMPTOMATIC Physical Exam Vital Signs: Temp Pulse Resp BP Pulse Ox 97.8 F 62 16 152/77 H 99 04/05/17 11:41 04/05/17 11:41 04/05/17 11:41 04/05/17 11:41 04/05/17 11:41 Intake & Output 04/04/17 04/05/17 04/06/17 06:59 06:59 06:59 Intake Total 1160 680 Output Total 200 500 Balance 960 180 Weight 74.7 kg Physical Exam: General appearance: PRESENT: no acute distress, well-developed, well-nourished Head exam: PRESENT: atraumatic, normocephalic Eye exam: PRESENT: conjunctiva pink, EOMI, PERRLA. ABSENT: scleral icterus Respiratory exam: PRESENT: clear to auscultation fred, decreased breath sounds - at lung bases Cardiovascular exam: PRESENT: RRR. ABSENT: diastolic murmur, rubs, systolic murmur GI/Abdominal exam: PRESENT: normal bowel sounds. ABSENT: ascites, tenderness, guarding, mass, organomegaly, rebound Extremities exam: ABSENT: pedal edema Neurological exam: PRESENT: alert, awake, oriented to person, oriented to place , oriented to time, oriented to situation, CN II-XII grossly intact. ABSENT: motor sensory deficit Psychiatric exam: PRESENT: appropriate affect, normal mood. ABSENT: homicidal ideation, suicidal ideation Skin exam: PRESENT: dry, intact, warm, other - improving right buttock region minimal cellulitis with superficial wound. ABSENT: cyanosis Results Laboratory Results: 04/05/17 05:45 04/05/17 05:45 04/04/17 04/05/17 04/05/17 12:24 05:45 05:45 WBC 7.5 RBC 4.21 Hgb 11.3 L Hct 33.8 L MCV 80 MCH 26.8 L MCHC 33.4 RDW 15.0 H Plt Count 209 Seg Neutrophils % 67.1 Lymphocytes % 23.9 Monocytes % 6.1 Eosinophils % 2.2 Basophils % 0.7 Absolute Neutrophils 5.1 Absolute Lymphocytes 1.8 Absolute Monocytes 0.5 Absolute Eosinophils 0.2 Absolute Basophils 0.1 Sodium 143.3 Potassium 3.7 Chloride 109 H Carbon Dioxide 23 Anion Gap 11 BUN 8 Creatinine 0.92 Est GFR ( Amer) > 60 Est GFR (Non-Af Amer) > 60 Glucose 97 Calcium 9.2 Total Bilirubin 0.4 AST 14 ALT 18 Alkaline Phosphatase 72 Total Protein 6.0 L Albumin 3.5 Stool for White Cells NO WBCs SEEN Impressions: Head CT 04/02/17 00:00 IMPRESSION: 1. Stable chronic intracranial changes. Small vessel disease and old right MCA distribution infarct. EVIDENCE OF ACUTE STROKE: NO. Chest X-Ray 04/02/17 15:09 IMPRESSION: NO ACUTE RADIOGRAPHIC FINDING IN THE CHEST. Guidance Fluoroscopy 04/04/17 00:00 IMPRESSION: SUCCESSFUL PLACEMENT OF A 5 FR DUAL LUMEN 29 CM PICC IN THE RIGHT BASILIC VEIN. Interventional Vascular Procedure 04/04/17 00:00 IMPRESSION: SUCCESSFUL PLACEMENT OF A 5 FR DUAL LUMEN 29 CM PICC IN THE RIGHT BASILIC VEIN. PICC Line Insertion 04/04/17 00:00 IMPRESSION: SUCCESSFUL PLACEMENT OF A 5 FR DUAL LUMEN 29 CM PICC IN THE RIGHT BASILIC VEIN. 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 transplanted heart: [place] heart Associated angina: angina presence unspecified Qualified Code(s): I25.10 - Atherosclerotic heart disease of [place] coronary artery without angina pectoris Is this a current diagnosis for this admission?: Yes (9) Implantable cardioverter-defibrillator (ICD) discharge Is this a current diagnosis for this admission?: Yes (10) C. difficile colitis Is this a current diagnosis for this admission?: Yes - Time Time Spent with patient: 25-34 minutes Medications reviewed and adjusted accordingly: Yes Anticipated discharge: Home with Homehealth Within: Other - Inpatient Certification Based on my medical assessment, after consideration of the patient's comorbidities, presenting symptoms, or acuity I expect that the services needed warrant INPATIENT care.: Yes I certify that my determination is in accordance with my understanding of Medicare's requirements for reasonable and necessary INPATIENT services [42 CFR 412.3e].: Yes Medical Necessity: Need Close Monitoring Due to Risk of Patient Decompensation, Need For IV Fluids, Need For Continuous Telemetry Monitoring, Need for IV Antibiotics, Risk of Complication if Not Cared For in Hospital Post Hospital Care: D/C Assistant In Nursing Documentation - Plan Summary Plan Summary: Continue current medication management. Follow up on blood and urine culture findings. Request PT evaluation.
[2017-04-05] MEDS: ERTAPENEM SODIUM 1 GM in NORMAL SALINE 50 ML IV SCH (17:54)
[2017-04-06] MEDS: LANSOPRAZOLE 30 MG TAB.RAP.DR PO SCH (05:36)
[2017-04-06] MEDS: METRONIDAZOLE 500 MG TABLET PO SCH ×3 (05:36→21:55)
[2017-04-06] MEDS: SITAGLIPTIN PHOSPHATE 50 MG TABLET PO SCH (09:01)
[2017-04-06] MEDS: LOSARTAN POTASSIUM 50 MG TABLET PO SCH (09:01)
[2017-04-06] MEDS: ATORVASTATIN CALCIUM 80 MG TABLET PO SCH (09:02)
[2017-04-06] MEDS: LEVETIRACETAM 500 MG TABLET PO SCH ×2 (09:02→21:55)
[2017-04-06] MEDS: NATEGLINIDE 60 MG TABLET PO SCH ×3 (09:02→16:41)
[2017-04-06] MEDS: CARVEDILOL 6.25 MG TABLET PO SCH ×2 (09:02→21:55)
[2017-04-06] MEDS: EZETIMIBE 10 MG TABLET PO SCH (09:02)
[2017-04-06] MEDS: LAMOTRIGINE 25 MG TAB.CHEW PO SCH ×2 (09:02→21:55)
[2017-04-06] MEDS: SERTRALINE HCL 50 MG TABLET PO SCH (09:03)
[2017-04-06] MEDS: NORMAL SALINE 10 ML SDV (SCHEDULED) IV SCH ×2 (09:03→21:55)
[2017-04-06] MEDS: NORMAL SALINE 1000 ML 1,000 ML IV PRN ×2 (09:05→17:36)
[2017-04-06] MEDS: ENOXAPARIN SODIUM INJ 40 MG/0.4 ML DISP.SYRIN SUBCUT SCH (09:27)
--- NOTE | 2017-04-06 12:48 | PDOC PROGRESS REPORT ---
Subjective Progress Note for:: 04/06/17 Subjective:: Patient is OOB in chair at bedside. Nursing staff reported need for one person assist with transfer activity. She denied diarrhea so far today. No chest pain or difficulty with breathing. No reported fever or chills. Reported less dizziness so far today. Reason For Visit: PROBABLE SEPSIS,R BUTTOCKS CELLULITIS, SYMPTOMATIC Physical Exam Vital Signs: Temp Pulse Resp BP Pulse Ox 97.8 F 63 16 149/75 H 98 04/06/17 12:10 04/06/17 12:10 04/06/17 12:10 04/06/17 12:10 04/06/17 12:10 Intake & Output 04/05/17 04/06/17 04/07/17 06:59 06:59 06:59 Intake Total 680 2185 Output Total 500 Balance 180 2185 Weight 74.7 kg 74.9 kg Physical Exam: General appearance: PRESENT: no acute distress, well-developed, well-nourished Head exam: PRESENT: atraumatic, normocephalic Eye exam: PRESENT: conjunctiva pink, EOMI, PERRLA. ABSENT: scleral icterus Respiratory exam: PRESENT: clear to auscultation fred, decreased breath sounds - at lung bases Cardiovascular exam: PRESENT: RRR. ABSENT: diastolic murmur, rubs, systolic murmur GI/Abdominal exam: PRESENT: normal bowel sounds. ABSENT: ascites, tenderness, guarding, mass, organomegaly, rebound Extremities exam: ABSENT: pedal edema Neurological exam: PRESENT: alert, awake, oriented to person, oriented to place , oriented to time, oriented to situation, CN II-XII grossly intact. ABSENT: motor sensory deficit Psychiatric exam: PRESENT: appropriate affect, normal mood. ABSENT: homicidal ideation, suicidal ideation Skin exam: PRESENT: dry, intact, warm, other - improving right buttock region minimal cellulitis with superficial wound. ABSENT: cyanosis Results Laboratory Results: 04/05/17 05:45 04/05/17 05:45 04/04/17 06:45 Clean Catch Midstream Urine Culture - Final C.albicans/C.dubliniensis Impressions: Head CT 04/02/17 00:00 IMPRESSION: 1. Stable chronic intracranial changes. Small vessel disease and old right MCA distribution infarct. EVIDENCE OF ACUTE STROKE: NO. Chest X-Ray 04/02/17 15:09 IMPRESSION: NO ACUTE RADIOGRAPHIC FINDING IN THE CHEST. Guidance Fluoroscopy 04/04/17 00:00 IMPRESSION: SUCCESSFUL PLACEMENT OF A 5 FR DUAL LUMEN 29 CM PICC IN THE RIGHT BASILIC VEIN. Interventional Vascular Procedure 04/04/17 00:00 IMPRESSION: SUCCESSFUL PLACEMENT OF A 5 FR DUAL LUMEN 29 CM PICC IN THE RIGHT BASILIC VEIN. PICC Line Insertion 04/04/17 00:00 IMPRESSION: SUCCESSFUL PLACEMENT OF A 5 FR DUAL LUMEN 29 CM PICC IN THE RIGHT BASILIC VEIN. 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 transplanted heart: [place] heart Associated angina: angina presence unspecified Qualified Code(s): I25.10 - Atherosclerotic heart disease of [place] coronary artery without angina pectoris Is this a current diagnosis for this admission?: Yes (9) Implantable cardioverter-defibrillator (ICD) discharge Is this a current diagnosis for this admission?: Yes (10) C. difficile colitis Is this a current diagnosis for this admission?: Yes - Time Time Spent with patient: 25-34 minutes Medications reviewed and adjusted accordingly: Yes Anticipated discharge: SNF - for short term rehabilitation Within: Other - Inpatient Certification Based on my medical assessment, after consideration of the patient's comorbidities, presenting symptoms, or acuity I expect that the services needed warrant INPATIENT care.: Yes I certify that my determination is in accordance with my understanding of Medicare's requirements for reasonable and necessary INPATIENT services [42 CFR 412.3e].: Yes Medical Necessity: Need Close Monitoring Due to Risk of Patient Decompensation, Need For IV Fluids, Need for IV Antibiotics, Risk of Complication if Not Cared For in Hospital Post Hospital Care: D/C or Transfer Summary - Plan Summary Plan Summary: See attending physician orders.
[2017-04-06] MEDS ORDERED: FLUCONAZOLE 100 MG TABLET PO ONE (13:00)
[2017-04-07] MEDS: NORMAL SALINE 1000 ML 1,000 ML IV PRN ×2 (04:35→15:27)
[2017-04-07] MEDS: METRONIDAZOLE 500 MG TABLET PO SCH ×3 (05:19→21:10)
[2017-04-07] MEDS: LANSOPRAZOLE 30 MG TAB.RAP.DR PO SCH (05:19)
[2017-04-07] MEDS: NATEGLINIDE 60 MG TABLET PO SCH ×3 (07:45→15:27)
[2017-04-07] MEDS: ENOXAPARIN SODIUM INJ 40 MG/0.4 ML DISP.SYRIN SUBCUT SCH (09:18)
[2017-04-07] MEDS: NORMAL SALINE 10 ML SDV (SCHEDULED) IV SCH ×2 (09:19→21:10)
[2017-04-07] MEDS: SERTRALINE HCL 50 MG TABLET PO SCH (09:19)
[2017-04-07] MEDS: EZETIMIBE 10 MG TABLET PO SCH (09:19)
[2017-04-07] MEDS: LEVETIRACETAM 500 MG TABLET PO SCH ×2 (09:19→21:10)
[2017-04-07] MEDS: SITAGLIPTIN PHOSPHATE 50 MG TABLET PO SCH (09:19)
[2017-04-07] MEDS: ATORVASTATIN CALCIUM 80 MG TABLET PO SCH (09:20)
[2017-04-07] MEDS: CARVEDILOL 6.25 MG TABLET PO SCH ×2 (09:20→21:10)
[2017-04-07] MEDS: LOSARTAN POTASSIUM 50 MG TABLET PO SCH (09:20)
[2017-04-07] MEDS: LAMOTRIGINE 25 MG TAB.CHEW PO SCH ×2 (09:22→21:11)
--- NOTE | 2017-04-07 10:50 | PDOC PROGRESS REPORT ---
Subjective Progress Note for:: 04/07/17 Subjective:: Patient is OOB in chair at bedside. She reported that stool is still soft but no [place] diarrhea so far today. No chest pain or difficulty with breathing. No reported fever or chills. Participated in physical therapy session earlier today. Reason For Visit: PROBABLE SEPSIS,R BUTTOCKS CELLULITIS, SYMPTOMATIC Physical Exam Vital Signs: Temp Pulse Resp BP Pulse Ox 97.9 F 67 14 156/89 H 97 04/07/17 04:00 04/07/17 07:00 04/07/17 04:00 04/07/17 04:00 04/07/17 04:00 Intake & Output 04/06/17 04/07/17 04/08/17 06:59 06:59 06:59 Intake Total 2185 3205 Balance 2185 3205 Weight 74.9 kg 74.8 kg Physical Exam: General appearance: PRESENT: no acute distress, well-developed, well-nourished Head exam: PRESENT: atraumatic, normocephalic Eye exam: PRESENT: conjunctiva pink, EOMI, PERRLA. ABSENT: scleral icterus Respiratory exam: PRESENT: clear to auscultation fred, decreased breath sounds - at lung bases Cardiovascular exam: PRESENT: RRR. ABSENT: diastolic murmur, rubs, systolic murmur GI/Abdominal exam: PRESENT: normal bowel sounds. ABSENT: ascites, tenderness, guarding, mass, organomegaly, rebound Extremities exam: ABSENT: pedal edema Neurological exam: PRESENT: alert, awake, oriented to person, oriented to place , oriented to time, oriented to situation, CN II-XII grossly intact. ABSENT: motor sensory deficit Psychiatric exam: PRESENT: appropriate affect, normal mood. ABSENT: homicidal ideation, suicidal ideation Skin exam: PRESENT: dry, intact, warm, other - improving right buttock region minimal cellulitis with superficial wound. ABSENT: cyanosis Results Laboratory Results: 04/05/17 05:45 04/05/17 05:45 04/04/17 12:10 Stool - Stool - Final Impressions: Head CT 04/02/17 00:00 IMPRESSION: 1. Stable chronic intracranial changes. Small vessel disease and old right MCA distribution infarct. EVIDENCE OF ACUTE STROKE: NO. Chest X-Ray 04/02/17 15:09 IMPRESSION: NO ACUTE RADIOGRAPHIC FINDING IN THE CHEST. Guidance Fluoroscopy 04/04/17 00:00 IMPRESSION: SUCCESSFUL PLACEMENT OF A 5 FR DUAL LUMEN 29 CM PICC IN THE RIGHT BASILIC VEIN. Interventional Vascular Procedure 04/04/17 00:00 IMPRESSION: SUCCESSFUL PLACEMENT OF A 5 FR DUAL LUMEN 29 CM PICC IN THE RIGHT BASILIC VEIN. PICC Line Insertion 04/04/17 00:00 IMPRESSION: SUCCESSFUL PLACEMENT OF A 5 FR DUAL LUMEN 29 CM PICC IN THE RIGHT BASILIC VEIN. 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 transplanted heart: [place] heart Associated angina: angina presence unspecified Qualified Code(s): I25.10 - Atherosclerotic heart disease of [place] coronary artery without angina pectoris Is this a current diagnosis for this admission?: Yes (9) Implantable cardioverter-defibrillator (ICD) discharge Is this a current diagnosis for this admission?: Yes (10) C. difficile colitis Is this a current diagnosis for this admission?: Yes - Time Time Spent with patient: 25-34 minutes Medications reviewed and adjusted accordingly: Yes Anticipated discharge: SNF - for shot term rehabilitation Within: Other - Inpatient Certification Based on my medical assessment, after consideration of the patient's comorbidities, presenting symptoms, or acuity I expect that the services needed warrant INPATIENT care.: Yes I certify that my determination is in accordance with my understanding of Medicare's requirements for reasonable and necessary INPATIENT services [42 CFR 412.3e].: Yes Medical Necessity: Need For IV Fluids, Risk of Complication if Not Cared For in Hospital Post Hospital Care: D/C or Transfer Summary - Plan Summary Plan Summary: Decrease IV fluid to 50ml/min. Monitor blood pressure response to decrease IV fluid rate. If blood pressure remain elevated consider increase Losartan to 100 mg p.o daily. Follow up on blood culture findings.
[2017-04-08] MEDS: LANSOPRAZOLE 30 MG TAB.RAP.DR PO SCH (05:51)
[2017-04-08] MEDS: METRONIDAZOLE 500 MG TABLET PO SCH ×3 (05:51→21:20)
[2017-04-08] MEDS: NATEGLINIDE 60 MG TABLET PO SCH ×3 (07:59→17:23)
[2017-04-08] MEDS: ENOXAPARIN SODIUM INJ 40 MG/0.4 ML DISP.SYRIN SUBCUT SCH (09:21)
[2017-04-08] MEDS: LAMOTRIGINE 25 MG TAB.CHEW PO SCH ×2 (09:22→21:50)
[2017-04-08] MEDS: CARVEDILOL 6.25 MG TABLET PO SCH ×2 (09:22→21:20)
[2017-04-08] MEDS: LOSARTAN POTASSIUM 50 MG TABLET PO SCH (09:23)
[2017-04-08] MEDS: ATORVASTATIN CALCIUM 80 MG TABLET PO SCH (09:23)
[2017-04-08] MEDS: SITAGLIPTIN PHOSPHATE 50 MG TABLET PO SCH (09:23)
[2017-04-08] MEDS: LEVETIRACETAM 500 MG TABLET PO SCH ×2 (09:23→21:20)
[2017-04-08] MEDS: EZETIMIBE 10 MG TABLET PO SCH (09:24)
[2017-04-08] MEDS: SERTRALINE HCL 50 MG TABLET PO SCH (09:24)
[2017-04-08] MEDS: NORMAL SALINE 10 ML SDV (SCHEDULED) IV SCH ×2 (09:24→21:52)
[2017-04-08] MEDS ORDERED: ONDANSETRON HCL INJ/PF 4 MG/2 ML SDV ONE ×2 (10:17→14:05)
[2017-04-08] MEDS ORDERED: CARVEDILOL 6.25 MG TABLET PO ONE (10:45)
[2017-04-08] MEDS ORDERED: LOSARTAN POTASSIUM 50 MG TABLET PO ONE (10:45)
[2017-04-08] MEDS ORDERED: ONDANSETRON HCL INJ/PF 4 MG/2 ML SDV IV ONE (10:45)
[2017-04-08] MEDS ORDERED: ATORVASTATIN CALCIUM 80 MG TABLET PO ONE (10:45)
[2017-04-08 11:05] LABS: ABSOLUTE BASOPHILS # (AUTO) 0.1 10^3/uL (0.0-0.2); ABSOLUTE EOSINOPHILS # (AUTO) 0.2 10^3/uL (0.0-0.6); ABSOLUTE LYMPHOCYTES (AUTO) 1.2 10^3/uL (0.5-4.7); ABSOLUTE MONOCYTES (AUTO) 0.5 10^3/uL (0.1-1.4); ABSOLUTE NEUT (AUTO) 9.3 10^3/uL (1.7-8.2); BASOPHILS % (AUTO) 1.1 % (0-2); EOSINOPHILS % (AUTO) 1.6 % (0-6); HEMATOCRIT 36.4 % (36.0-47.0); HEMOGLOBIN 11.9 g/dL (12.0-15.5); LYMPHOCYTES % (AUTO) 10.4 % (13-45); MEAN CORPUSCULAR HEMOGLOBIN 26.4 pg (27.0-33.4); MEAN CORPUSCULAR HGB CONC 32.7 g/dL (32.0-36.0); MEAN CORPUSCULAR VOLUME 81 fl (80-97); MONOCYTES % (AUTO) 4.5 % (3-13); PLATELET COUNT 179 10^3/uL (150-450); RED BLOOD COUNT 4.52 10^6/uL (3.72-5.28); RED CELL DISTRIBUTION WIDTH 14.8 % (11.5-14.0); SEGMENTED NEUTROPHILS % (AUTO) 82.4 % (42-78); TOTAL CELLS COUNTED % (AUTO) 100 %; WHITE BLOOD COUNT 11.2 10^3/uL (4.0-10.5)
[2017-04-08 11:27] LABS: ALANINE AMINOTRANSFERASE 24 U/L (9-52); ALBUMIN 3.7 g/dL (3.5-5.0); ALKALINE PHOSPHATASE 72 U/L (38-126); ANION GAP 11 (5-19); ASPARTATE AMINO TRANSFERASE 23 U/L (14-36); BILIRUBIN,DIRECT 0.2 mg/dL (0.0-0.4); BILIRUBIN,TOTAL 0.5 mg/dL (0.2-1.3); BLOOD UREA NITROGEN 11 mg/dL (7-20); CALCIUM 9.5 mg/dL (8.4-10.2); CARBON DIOXIDE 22 mmol/L (22-30); CHLORIDE 111 mmol/L (98-107); GLUCOSE 132 mg/dL (75-110); POTASSIUM 3.5 mmol/L (3.6-5.0); SODIUM 144.4 mmol/L (137-145); TOTAL PROTEIN 6.3 g/dL (6.3-8.2)
--- NOTE | 2017-04-08 12:48 | RADIOLOGY REPORT (SQ) ---
EXAM DESCRIPTION: CT HEAD WITHOUT COMPLETED DATE/TIME: 04/08/2017 12:37 pm REASON FOR STUDY: stroke protocol D69.6 THROMBOCYTOPENIA, UNSPECIFIED A40.9 STREPTOCOCCAL SEPSIS, UNSPECIFIED R42 DIZZINESS AND GIDDINESS COMPARISON: 04/02/2017, 12/16/2016 TECHNIQUE: Axial images acquired through the brain without intravenous contrast. Images reviewed wi th bone, brain and subdural windows. Images stored on PACS. All CT scanners at this facility use dose modulation, iterative reconstruction, and/or weight based d osing when appropriate to reduce radiation dose to as low as reasonably achievable (ALARA). [facility]: Dose Right [facility]: CareDose [facility]: Dose Right [facility]: Teradose 4D [facility]: Runtastic RADIATION DOSE: mGy. LIMITATIONS: None. FINDINGS: VENTRICLES: Mild stable ventricular dilatation CEREBRUM: No intracranial hemorrhage no mass-effect. Stable old infarct right MCA distribution. Sta ble periventricular white matter infarction. CEREBELLUM: No masses. No hemorrhage. No alteration of density. No evidence for acute infarction. EXTRAAXIAL SPACES: No fluid collections. No masses. ORBITS AND GLOBE: No intra- or extraconal masses. Normal contour of globe without masses. CALVARIUM: No fracture. PARANASAL SINUSES: No fluid or mucosal thickening. SOFT TISSUES: No mass or hematoma. OTHER: No other significant finding. IMPRESSION: Stable chronic intracranial changes. These include right hemispheric infarct and perive ntricular white matter infarction. No acute findings. EVIDENCE OF ACUTE STROKE: NO. COMMENT: Quality ID # [id number]: Final reports with documentation of one or more dose reduction techniques (e.g., Automated exposure control, adjustment of the mA and/or kV according to patient size, use of iterative reconstruction technique) TECHNICAL DOCUMENTATION: JOB ID: [id number] All Rights Reserved
[2017-04-08 13:32] LABS: INTERNATIONAL RATION (INR) 1.12; PROTHROMBIN TIME 15.2 SEC (11.4-15.4)
[2017-04-08 13:33] LABS: PARTIAL THROMBOPLASTIN TIME 34.2 SEC (23.5-35.8)
[2017-04-08 13:51] LABS: CREATINE KINASE 61 U/L (30-135)
[2017-04-08] MEDS ORDERED: ASPIRIN 300 MG SUPP, RECTAL PR ONE ×2 (14:00→19:15)
[2017-04-08 14:08] LABS: CREATINE KINASE MB 0.57 ng/mL (<4.55)
[2017-04-08 14:11] LABS: TROPONIN I < 0.012 ng/mL
--- NOTE | 2017-04-08 14:23 | RADIOLOGY REPORT (SQ) ---
EXAM DESCRIPTION: CHEST SINGLE VIEW COMPLETED DATE/TIME: 04/08/2017 2:02 pm REASON FOR STUDY: STROKE PROTOCOL COMPARISON: 04/02/2017. 04/04/2017 PICC placement images. NUMBER OF VIEWS: One view. TECHNIQUE: Single frontal radiographic view of the chest acquired. LIMITATIONS: None. FINDINGS: LUNGS AND PLEURA: Relatively low lung volumes with associated vascular crowding. No suspi cious opacities. MEDIASTINUM AND HILAR STRUCTURES: No masses. Contour normal. HEART AND VASCULAR STRUCTURES: Heart normal in size. Normal vasculature. BONES: No acute findings. HARDWARE: Single lead cardiac device, as before. Right PICC line with tip probably to the brachiocep halic vein, more proximal than seen on initial placement images from 04/04/2017. OTHER: No other significant finding. IMPRESSION: 1. Allowing for slightly lower lung volumes, no acute cardiopulmonary disease. Right PI CC line looks pulled back, now in the brachiocephalic vein. TECHNICAL DOCUMENTATION: JOB ID: [id number] [id number]- All Rights Reserved
[2017-04-08] MEDS ORDERED: ONDANSETRON HCL INJ/PF 4 MG/2 ML SDV IV PRN (14:40)
--- NOTE | 2017-04-08 16:37 | RADIOLOGY REPORT (SQ) ---
EXAM DESCRIPTION: CAROTID DOPPLER COMPLETED DATE/TIME: 04/08/2017 4:15 pm REASON FOR STUDY: Stroke symptoms D69.6 THROMBOCYTOPENIA, UNSPECIFIED A40.9 STREPTOCOCCAL SEPSIS, UNSPECIFIED R42 DIZZINESS AND GIDDINESS COMPARISON: None. TECHNIQUE: Grayscale ultrasound, Doppler velocity and spectra, and color Doppler images acquired of the extra-cranial carotid and vertebral arteries. Images stored on PACS. LIMITATIONS: None. FINDINGS: RIGHT CAROTID CCA Velocities: Within normal limits. ICA Velocities Peak systolic 1.01 m/s. End diastolic 0.25 m/s. Proximal ICA/CCA peak systolic ratio 1.3. Spectra normal. No significant plaque. LEFT CAROTID CCA Velocities: Within normal limits. ICA Velocities Peak systolic 0.67 m/s. End diastolic 0.19 m/s. Proximal ICA/CCA peak systolic ratio 0.6. Spectra normal. No significant plaque. VERTEBRAL ARTERIES: Antegrade flow. Normal waveforms. SUBCLAVIAN ARTERIES: No finding. OTHER: No other significant finding. IMPRESSION: NO HEMODYNAMICALLY SIGNIFICANT STENOSIS. COMMENT: Quality ID #[id number]: Velocity criteria are extrapolated from the diameter data as defined by t he Society of Radiologists in Ultrasound Consensus Conference. Radiology 2003: 229; 340-346. TECHNICAL DOCUMENTATION: JOB ID: [id number] [employer]- All Rights Reserved
--- NOTE | 2017-04-08 19:34 | XCELERA REPORT ---
[address] [address] Transthoracic Echocardiogram Report Name: RICARDO HOLM Age: 66 yrs Gender: Female : 1950 Patient Status: Inpatient Patient Location: [address] [place] [address] Study Date: 04/08/2017 02:59 PM Height: 62 in Weight: 164 lb BSA: 1.8 m2 Procedure: A complete two-dimensional transthoracic echocardiogram was performed (2D, M-mode, spectral and color flow Doppler). The study was technically difficult with many images being suboptimal in quality. Reason For Study: Stroke symptoms Ordering Physician: PONCHO CONTRERAS Performed By: Angelika Kaufman Interpretation Summary The study was technically difficult with many images being suboptimal in quality. LV EF is 35% Left ventricular systolic function is moderately reduced. There is borderline concentric left ventricular hypertrophy. The left ventricle is mildly dilated. There is apical wall akinesis There is mid to distal anterior wall akinesis The left ventricular apex is not well visualized. The right ventricular systolic function is normal. The left atrium is mildly dilated. The right atrium is normal in size There is a moderate amount of mitral regurgitation There is no mitral valve stenosis. No aortic regurgitation is present. There is no aortic valve stenosis There is a trace or physiologic amount of tricuspid regurgitation Tricuspid regurgitation jet envelope not well defined to measure RV systolic pressure accurately. The aortic root is not well visualized. The inferior vena cava appeared normal and decreased > 50% with respiration (RAP 5-10 mmHg) Minimal pericardial effusion. Consider additional methods to assess LVEF such as MUGA scan, CTA heart, cardiac MRI, VARGAS, etc. if clinically indicated. MMode/2D Measurements & Calculations RVDd: 2.7 cm LVIDd: 5.9 cm FS: 23.2 % Ao root diam: 2.4 cm IVSd: 0.71 cm LVIDs: 4.5 cm EDV(Teich): 172.0 ml LVPWd: 0.84 cmESV(Teich): 93.3 ml Ao root area: 4.5 cm2 EF(Teich): 45.7 % LVOT diam: 1.9 cm LVOT area: 2.9 cm2 Doppler Measurements & Calculations MV E max martita: MV dec slope: Ao V2 max: LV V1 max P.6 cm/sec 725.8 cm/sec2 119.3 cm/sec 4.4 mmHg MV A max martita: MV dec time: Ao max PG: LV V1 max: 61.2 cm/sec 0.13 sec 5.7 mmHg 105.3 cm/sec MV E/A: 1.6 NILSA(V,D): 2.6 cm2 PA V2 max: TR max martita: 66.3 cm/sec 264.0 cm/sec PA max PG: TR max P.9 mmHg 1.8 mmHg Left Ventricle The left ventricle is mildly dilated. There is borderline concentric left ventricular hypertrophy. Left ventricular systolic function is moderately reduced. LV EF is 35%. Consider additional methods to assess LVEF such as MUGA scan, CTA heart, cardiac MRI, VARGAS, etc. if clinically indicated. Doppler measurements suggest pseudonormalized left ventricular relaxation, which is associated with grade II/IV or mild to moderate diastolic dysfunction. There is apical wall akinesis. There is mid to distal anterior wall akinesis. The left ventricular apex is not well visualized. Right Ventricle The right ventricle is grossly normal size. There is normal right ventricular wall thickness. The right ventricular systolic function is normal. Atria The right atrium is normal in size. The left atrium is mildly dilated. Interarterial septum not well visualized and not well dopplered. Cannot comment on ASD/PFO presence. Mitral Valve The mitral valve leaflets are sclerotic, but show no functional abnormalities. There is no mitral valve stenosis. There is a moderate amount of mitral regurgitation. Aortic Valve The aortic valve is not well visualized secondary to technical limitations. There is no aortic valve stenosis. No aortic regurgitation is present. Tricuspid Valve The tricuspid valve is not well visualized secondary to technical limitations. There is no tricuspid stenosis. There is a trace or physiologic amount of tricuspid regurgitation. Tricuspid regurgitation jet envelope not well defined to measure RV systolic pressure accurately. Pulmonic Valve The pulmonic valve is not well visualized. Great Vessels The aortic root is not well visualized. The inferior vena cava appeared normal and decreased > 50% with respiration (RAP 5-10 mmHg). Effusions Minimal pericardial effusion. Incidental Findings Consider VARGAS if clinically indicated. May consider mobile cardiac telemetry monitoring (MCT) for ruling out transient AFIB. : PONCHO CONTRERAS > Chari Soto
--- NOTE | 2017-04-08 20:05 | PDOC PROGRESS REPORT ---
Subjective Progress Note for:: 04/08/17 Subjective:: Patient had episode of nausea and vomiting after administration of her morning medication. Her blood pressure remain elevated necessitating now doses administration of her anti hypertensive medications. She was subsequently found less responsive with worsening right sided weakness. In view of this event OPERATING ROOM MANAGER was initiated and she was transferred to [facility] for further evaluation and management. She was managed appropriately with further evaluation not revealing acute stroke on brain CT scan. Currently she is awake alert and appropriate in responses. Family at bedside. Reason For Visit: PROBABLE SEPSIS,R BUTTOCKS CELLULITIS, SYMPTOMATIC Physical Exam Vital Signs: Temp Pulse Resp BP Pulse Ox 99 F 77 20 132/113 H 100 04/08/17 17:36 04/08/17 18:34 04/08/17 18:34 04/08/17 18:34 04/08/17 18:34 Intake & Output 04/07/17 04/08/17 04/09/17 06:59 06:59 06:59 Intake Total 3205 1387 450 Output Total 300 Balance 3205 1387 150 Weight 74.8 kg Physical Exam: General appearance: PRESENT: no acute distress, well-developed, well-nourished Head exam: PRESENT: atraumatic, normocephalic Eye exam: PRESENT: conjunctiva pink, EOMI, PERRLA. ABSENT: scleral icterus Respiratory exam: PRESENT: clear to auscultation fred, decreased breath sounds - at lung bases Cardiovascular exam: PRESENT: RRR. ABSENT: diastolic murmur, rubs, systolic murmur GI/Abdominal exam: PRESENT: normal bowel sounds. ABSENT: ascites, tenderness, guarding, mass, organomegaly, rebound Extremities exam: ABSENT: pedal edema Neurological exam: PRESENT: alert, awake, oriented to person, oriented to place , oriented to time, oriented to situation, CN II-XII grossly intact. There is longstanding right slight hemiparesis with muscle power about 3+/5 in upper and lower extremities. ABSENT: motor sensory deficit Psychiatric exam: PRESENT: appropriate affect, normal mood. ABSENT: homicidal ideation, suicidal ideation Skin exam: PRESENT: dry, intact, warm, other - improving right buttock region minimal cellulitis with superficial wound. ABSENT: cyanosis Results Laboratory Results: 04/08/17 10:54 04/08/17 10:54 04/08/17 04/08/17 04/08/17 10:54 10:54 13:16 WBC 11.2 H RBC 4.52 Hgb 11.9 L Hct 36.4 MCV 81 MCH 26.4 L MCHC 32.7 RDW 14.8 H Plt Count 179 Seg Neutrophils % 82.4 H Lymphocytes % 10.4 L Monocytes % 4.5 Eosinophils % 1.6 Basophils % 1.1 Absolute Neutrophils 9.3 H Absolute Lymphocytes 1.2 Absolute Monocytes 0.5 Absolute Eosinophils 0.2 Absolute Basophils 0.1 Sodium 144.4 Potassium 3.5 L Chloride 111 H Carbon Dioxide 22 Anion Gap 11 BUN 11 Creatinine 0.83 Est GFR ( Amer) > 60 Est GFR (Non-Af Amer) > 60 Glucose 132 H Calcium 9.5 Magnesium 1.7 Total Bilirubin 0.5 AST 23 ALT 24 Alkaline Phosphatase 72 Total Protein 6.3 Albumin 3.7 04/04/17 12:10 Stool - Stool - Final 04/04/17 12:10 Stool - Stool Stool Culture - Final NO SALMONELLA, SHIGELLA, CAMPYLOBACTER, OR E.COLI 0157 RECOVERED. NEGATIVE FOR SHIGA TOXINS 1&2. 04/02/17 16:30 Blood Blood Culture - Final NO GROWTH IN 5 DAYS 04/02/17 17:45 Blood Blood Culture - Final NO GROWTH IN 5 DAYS 04/08/17 04/08/17 13:16 13:16 Creatine Kinase 61 CK-MB (CK-2) 0.57 Troponin I < 0.012 Impressions: Guidance Fluoroscopy 04/04/17 00:00 IMPRESSION: SUCCESSFUL PLACEMENT OF A 5 FR DUAL LUMEN 29 CM PICC IN THE RIGHT BASILIC VEIN. Interventional Vascular Procedure 04/04/17 00:00 IMPRESSION: SUCCESSFUL PLACEMENT OF A 5 FR DUAL LUMEN 29 CM PICC IN THE RIGHT BASILIC VEIN. PICC Line Insertion 04/04/17 00:00 IMPRESSION: SUCCESSFUL PLACEMENT OF A 5 FR DUAL LUMEN 29 CM PICC IN THE RIGHT BASILIC VEIN. Carotid Doppler Study 04/08/17 00:00 IMPRESSION: NO HEMODYNAMICALLY SIGNIFICANT STENOSIS. Head CT 04/08/17 12:12 IMPRESSION: Stable chronic intracranial changes. These include right hemispheric infarct and periventricular white matter infarction. No acute findings. EVIDENCE OF ACUTE STROKE: NO. Chest X-Ray 04/08/17 12:52 IMPRESSION: 1. Allowing for slightly lower lung volumes, no acute cardiopulmonary disease. Right PICC line looks pulled back, now in the brachiocephalic vein. 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 transplanted heart: [place] heart Associated angina: angina presence unspecified Qualified Code(s): I25.10 - Atherosclerotic heart disease of [place] coronary artery without angina pectoris Is this a current diagnosis for this admission?: Yes (9) Implantable cardioverter-defibrillator (ICD) discharge Is this a current diagnosis for this admission?: Yes (10) C. difficile colitis Is this a current diagnosis for this admission?: Yes - Time Time Spent with patient: 35 or more minutes Medications reviewed and adjusted accordingly: Yes Anticipated discharge: SNF Within: Other - Inpatient Certification Based on my medical assessment, after consideration of the patient's comorbidities, presenting symptoms, or acuity I expect that the services needed warrant INPATIENT care.: Yes I certify that my determination is in accordance with my understanding of Medicare's requirements for reasonable and necessary INPATIENT services [42 CFR 412.3e].: Yes Medical Necessity: Need Close Monitoring Due to Risk of Patient Decompensation, Need For IV Fluids, Need For Continuous Telemetry Monitoring, Need for Neurological Checks, Risk of Complication if Not Cared For in Hospital Post Hospital Care: D/C or Transfer Summary - Plan Summary Plan Summary: Continue current medication management. See attending physician orders. I had extensive discussion with family at bedside regarding care plan ad need for physical rehabilitation. I will request for transvaginal ultrasound evaluation of her positive HCG test for possible ovarian pathology.
[2017-04-09] MEDS: METRONIDAZOLE 500 MG TABLET PO SCH ×3 (05:38→21:54)
[2017-04-09] MEDS: LANSOPRAZOLE 30 MG TAB.RAP.DR PO SCH (05:38)
--- NOTE | 2017-04-09 07:37 | PDOC PROGRESS REPORT ---
Subjective Progress Note for:: 04/09/17 Subjective:: Patient remain lucid and full oriented since last clinical evaluation. She denied any chest pain, difficulty with breathing, nausea or vomiting. No unusual focal weakness. No diarrhea or abdominal pain. Reason For Visit: PROBABLE SEPSIS,R BUTTOCKS CELLULITIS, SYMPTOMATIC Physical Exam Vital Signs: Temp Pulse Resp BP Pulse Ox 98.0 F 57 L 16 146/70 H 100 04/09/17 03:02 04/09/17 05:34 04/09/17 05:34 04/09/17 05:34 04/09/17 05:34 Intake & Output 04/08/17 04/09/17 04/10/17 06:59 06:59 06:59 Intake Total 1387 700 Output Total 300 Balance 1387 400 Weight 74.6 kg Physical Exam: General appearance: PRESENT: no acute distress, well-developed, well-nourished Head exam: PRESENT: atraumatic, normocephalic Eye exam: PRESENT: conjunctiva pink, EOMI, PERRLA. ABSENT: scleral icterus Respiratory exam: PRESENT: clear to auscultation fred, decreased breath sounds - at lung bases Cardiovascular exam: PRESENT: RRR. ABSENT: diastolic murmur, rubs, systolic murmur GI/Abdominal exam: PRESENT: normal bowel sounds. ABSENT: ascites, tenderness, guarding, mass, organomegaly, rebound Extremities exam: ABSENT: pedal edema Neurological exam: PRESENT: alert, awake, oriented to person, oriented to place , oriented to time, oriented to situation, CN II-XII grossly intact. There is longstanding right slight hemiparesis with muscle power about 3+/5 in upper and lower extremities. ABSENT: motor sensory deficit Psychiatric exam: PRESENT: appropriate affect, normal mood. ABSENT: homicidal ideation, suicidal ideation Skin exam: PRESENT: dry, intact, warm, other - improving right buttock region minimal cellulitis with superficial wound. ABSENT: cyanosis Results Laboratory Results: 04/08/17 10:54 04/08/17 10:54 04/08/17 04/08/17 04/08/17 10:54 10:54 13:16 WBC 11.2 H RBC 4.52 Hgb 11.9 L Hct 36.4 MCV 81 MCH 26.4 L MCHC 32.7 RDW 14.8 H Plt Count 179 Seg Neutrophils % 82.4 H Lymphocytes % 10.4 L Monocytes % 4.5 Eosinophils % 1.6 Basophils % 1.1 Absolute Neutrophils 9.3 H Absolute Lymphocytes 1.2 Absolute Monocytes 0.5 Absolute Eosinophils 0.2 Absolute Basophils 0.1 Sodium 144.4 Potassium 3.5 L Chloride 111 H Carbon Dioxide 22 Anion Gap 11 BUN 11 Creatinine 0.83 Est GFR ( Amer) > 60 Est GFR (Non-Af Amer) > 60 Glucose 132 H Calcium 9.5 Magnesium 1.7 Total Bilirubin 0.5 AST 23 ALT 24 Alkaline Phosphatase 72 Total Protein 6.3 Albumin 3.7 04/04/17 12:10 Stool - Stool - Final 04/04/17 12:10 Stool - Stool Stool Culture - Final NO SALMONELLA, SHIGELLA, CAMPYLOBACTER, OR E.COLI 0157 RECOVERED. NEGATIVE FOR SHIGA TOXINS 1&2. 04/08/17 04/08/17 13:16 13:16 Creatine Kinase 61 CK-MB (CK-2) 0.57 Troponin I < 0.012 Impressions: Guidance Fluoroscopy 04/04/17 00:00 IMPRESSION: SUCCESSFUL PLACEMENT OF A 5 FR DUAL LUMEN 29 CM PICC IN THE RIGHT BASILIC VEIN. Interventional Vascular Procedure 04/04/17 00:00 IMPRESSION: SUCCESSFUL PLACEMENT OF A 5 FR DUAL LUMEN 29 CM PICC IN THE RIGHT BASILIC VEIN. PICC Line Insertion 04/04/17 00:00 IMPRESSION: SUCCESSFUL PLACEMENT OF A 5 FR DUAL LUMEN 29 CM PICC IN THE RIGHT BASILIC VEIN. Carotid Doppler Study 04/08/17 00:00 IMPRESSION: NO HEMODYNAMICALLY SIGNIFICANT STENOSIS. Head CT 04/08/17 12:12 IMPRESSION: Stable chronic intracranial changes. These include right hemispheric infarct and periventricular white matter infarction. No acute findings. EVIDENCE OF ACUTE STROKE: NO. Chest X-Ray 04/08/17 12:52 IMPRESSION: 1. Allowing for slightly lower lung volumes, no acute cardiopulmonary disease. Right PICC line looks pulled back, now in the brachiocephalic vein. 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 transplanted heart: [place] heart Associated angina: angina presence unspecified Qualified Code(s): I25.10 - Atherosclerotic heart disease of [place] coronary artery without angina pectoris Is this a current diagnosis for this admission?: Yes (9) Implantable cardioverter-defibrillator (ICD) discharge Is this a current diagnosis for this admission?: Yes (10) C. difficile colitis Is this a current diagnosis for this admission?: Yes - Time Time Spent with patient: 25-34 minutes Medications reviewed and adjusted accordingly: Yes Anticipated discharge: SNF Within: Other - Inpatient Certification Based on my medical assessment, after consideration of the patient's comorbidities, presenting symptoms, or acuity I expect that the services needed warrant INPATIENT care.: Yes I certify that my determination is in accordance with my understanding of Medicare's requirements for reasonable and necessary INPATIENT services [42 CFR 412.3e].: Yes Medical Necessity: Need Close Monitoring Due to Risk of Patient Decompensation, Need For IV Fluids, Need For Continuous Telemetry Monitoring, Need for IV Antibiotics, Risk of Complication if Not Cared For in Hospital Post Hospital Care: D/C or Transfer Summary - Plan Summary Plan Summary: Follow up on requested TV non OB pelvic ultrasound. Continue all current medication management. Obtain confirmatory serum beta HCG quantitative test.
[2017-04-09] MEDS: NATEGLINIDE 60 MG TABLET PO SCH ×3 (08:37→18:00)
--- NOTE | 2017-04-09 08:50 | EKG REPORT ---
SEVERITY:- BORDERLINE ECG - SINUS RHYTHM BORDERLINE T ABNORMALITIES, ANT-LAT LEADS BORDERLINE PROLONGED QT INTERVAL : Confirmed by: Rosa Maria Olivarez MD 09-Apr-2017 08:50:19
--- NOTE | 2017-04-09 08:50 | EKG REPORT ---
SEVERITY:- ABNORMAL ECG - SINUS RHYTHM CONSIDER ANTEROSEPTAL INFARCT NONSPECIFIC T ABNORMALITIES, ANT-LAT LEADS BORDERLINE PROLONGED QT INTERVAL : Confirmed by: Rosa Maria Olivarez MD 09-Apr-2017 08:50:26
[2017-04-09] MEDS: LOSARTAN POTASSIUM 50 MG TABLET PO SCH (10:41)
[2017-04-09] MEDS: LEVETIRACETAM 500 MG TABLET PO SCH ×2 (10:41→21:53)
[2017-04-09] MEDS: SITAGLIPTIN PHOSPHATE 50 MG TABLET PO SCH (10:41)
[2017-04-09] MEDS: SERTRALINE HCL 50 MG TABLET PO SCH (10:41)
[2017-04-09] MEDS: EZETIMIBE 10 MG TABLET PO SCH (10:41)
[2017-04-09] MEDS: LAMOTRIGINE 25 MG TAB.CHEW PO SCH ×2 (10:42→21:53)
[2017-04-09] MEDS: CARVEDILOL 6.25 MG TABLET PO SCH ×2 (10:42→21:53)
[2017-04-09] MEDS: NORMAL SALINE 10 ML SDV (SCHEDULED) IV SCH ×2 (10:42→21:53)
[2017-04-09] MEDS: ATORVASTATIN CALCIUM 80 MG TABLET PO SCH (10:42)
[2017-04-09] MEDS: ENOXAPARIN SODIUM INJ 40 MG/0.4 ML DISP.SYRIN SUBCUT SCH (10:42)
[2017-04-09] MEDS: ASPIRIN 81 MG TABLET, ENT COATED PO SCH (10:42)
[2017-04-09] MEDS: NORMAL SALINE 1000 ML 1,000 ML IV PRN (23:49)
[2017-04-10] MEDS: LANSOPRAZOLE 30 MG TAB.RAP.DR PO SCH (05:06)
[2017-04-10] MEDS: METRONIDAZOLE 500 MG TABLET PO SCH ×3 (05:07→20:55)
[2017-04-10 06:03] LABS: CREATINE KINASE MB 1.18 ng/mL (<4.55); TROPONIN I 0.015 ng/mL
--- NOTE | 2017-04-10 09:27 | RADIOLOGY REPORT (SQ) ---
EXAM DESCRIPTION: U/S NON OB PEL TV W/DOPPLER COMPLETED DATE/TIME: 04/10/2017 7:31 am REASON FOR STUDY: Postmenopausal Positive HCG status D69.6 THROMBOCYTOPENIA, UNSPECIFIED A40.9 STR EPTOCOCCAL SEPSIS, UNSPECIFIED R42 DIZZINESS AND GIDDINESS COMPARISON: None. TECHNIQUE: Dynamic and static grayscale images acquired of the pelvis via transvaginal approach and recorded on PACS. Additional selected color Doppler and spectral images recorded. LIMITATIONS: None. FINDINGS: UTERUS: Surgically absent. RIGHT OVARY: Ovary not visualized. LEFT OVARY: Ovary not visualized. FREE FLUID: None noted. OTHER: No other significant finding. IMPRESSION: POST HYSTERECTOMY. OVARIES NOT VISUALIZED. NO SONOGRAPHIC ABNORMALITY IN THE PELVIS. TECHNICAL DOCUMENTATION: JOB ID: [id number] [employer]- All Rights Reserved
[2017-04-10] MEDS: EZETIMIBE 10 MG TABLET PO SCH (09:31)
[2017-04-10] MEDS: ATORVASTATIN CALCIUM 80 MG TABLET PO SCH (09:31)
[2017-04-10] MEDS: LEVETIRACETAM 500 MG TABLET PO SCH ×2 (09:31→20:56)
[2017-04-10] MEDS: SITAGLIPTIN PHOSPHATE 50 MG TABLET PO SCH (09:31)
[2017-04-10] MEDS: NATEGLINIDE 60 MG TABLET PO SCH ×3 (09:31→17:30)
[2017-04-10] MEDS: ENOXAPARIN SODIUM INJ 40 MG/0.4 ML DISP.SYRIN SUBCUT SCH (09:32)
[2017-04-10] MEDS: NORMAL SALINE 10 ML SDV (SCHEDULED) IV SCH ×2 (09:32→20:56)
[2017-04-10] MEDS: LOSARTAN POTASSIUM 50 MG TABLET PO SCH (09:32)
[2017-04-10] MEDS: SERTRALINE HCL 50 MG TABLET PO SCH (09:32)
[2017-04-10] MEDS: CARVEDILOL 6.25 MG TABLET PO SCH ×2 (09:32→20:56)
[2017-04-10] MEDS: ASPIRIN 81 MG TABLET, ENT COATED PO SCH (09:32)
[2017-04-10] MEDS: LAMOTRIGINE 25 MG TAB.CHEW PO SCH ×2 (09:32→20:56)
--- NOTE | 2017-04-10 18:21 | PDOC PROGRESS REPORT ---
Subjective Progress Note for:: 04/10/17 Subjective:: Patient remain lucid and appropriate in responses. She denied any abdominal pain , nausea, vomiting. No chest pain or difficulty with her breathing. No reported fever or chills. No recurrence of loss of consciousness. Reason For Visit: PROBABLE SEPSIS,R BUTTOCKS CELLULITIS, SYMPTOMATIC Physical Exam Vital Signs: Temp Pulse Resp BP Pulse Ox 98.2 F 67 18 157/73 H 100 04/10/17 15:59 04/10/17 15:59 04/10/17 15:59 04/10/17 15:59 04/10/17 15:59 Intake & Output 04/09/17 04/10/17 04/11/17 06:59 06:59 06:59 Intake Total 700 575 355 Output Total 300 Balance 400 575 355 Weight 74.6 kg Physical Exam: General appearance: PRESENT: no acute distress, well-developed, well-nourished Head exam: PRESENT: atraumatic, normocephalic Eye exam: PRESENT: conjunctiva pink, EOMI, PERRLA. ABSENT: scleral icterus Respiratory exam: PRESENT: clear to auscultation fred, decreased breath sounds - at lung bases Cardiovascular exam: PRESENT: RRR. ABSENT: diastolic murmur, rubs, systolic murmur GI/Abdominal exam: PRESENT: normal bowel sounds. ABSENT: ascites, tenderness, guarding, mass, organomegaly, rebound Extremities exam: ABSENT: pedal edema Neurological exam: PRESENT: alert, awake, oriented to person, oriented to place , oriented to time, oriented to situation, CN II-XII grossly intact. Right 3+/5 hemiparesis ABSENT: motor sensory deficit Psychiatric exam: PRESENT: appropriate affect, normal mood. ABSENT: homicidal ideation, suicidal ideation Skin exam: PRESENT: dry, intact, warm, other - improving right buttock region minimal cellulitis with superficial wound. ABSENT: cyanosis Results Laboratory Results: 04/08/17 10:54 04/08/17 10:54 04/08/17 04/08/17 04/10/17 13:16 13:16 05:00 Creatine Kinase 61 117 CK-MB (CK-2) 0.57 Troponin I < 0.012 04/10/17 05:00 Creatine Kinase CK-MB (CK-2) 1.18 Troponin I 0.015 Impressions: Guidance Fluoroscopy 04/04/17 00:00 IMPRESSION: SUCCESSFUL PLACEMENT OF A 5 FR DUAL LUMEN 29 CM PICC IN THE RIGHT BASILIC VEIN. Interventional Vascular Procedure 04/04/17 00:00 IMPRESSION: SUCCESSFUL PLACEMENT OF A 5 FR DUAL LUMEN 29 CM PICC IN THE RIGHT BASILIC VEIN. PICC Line Insertion 04/04/17 00:00 IMPRESSION: SUCCESSFUL PLACEMENT OF A 5 FR DUAL LUMEN 29 CM PICC IN THE RIGHT BASILIC VEIN. Carotid Doppler Study 04/08/17 00:00 IMPRESSION: NO HEMODYNAMICALLY SIGNIFICANT STENOSIS. Head CT 04/08/17 12:12 IMPRESSION: Stable chronic intracranial changes. These include right hemispheric infarct and periventricular white matter infarction. No acute findings. EVIDENCE OF ACUTE STROKE: NO. Chest X-Ray 04/08/17 12:52 IMPRESSION: 1. Allowing for slightly lower lung volumes, no acute cardiopulmonary disease. Right PICC line looks pulled back, now in the brachiocephalic vein. Transvaginal US 04/10/17 00:00 IMPRESSION: POST HYSTERECTOMY. OVARIES NOT VISUALIZED. NO SONOGRAPHIC ABNORMALITY IN THE PELVIS. 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 transplanted heart: [place] heart Associated angina: angina presence unspecified Qualified Code(s): I25.10 - Atherosclerotic heart disease of [place] coronary artery without angina pectoris Is this a current diagnosis for this admission?: Yes (9) Implantable cardioverter-defibrillator (ICD) discharge Is this a current diagnosis for this admission?: Yes (10) C. difficile colitis Is this a current diagnosis for this admission?: Yes - Time Time Spent with patient: 25-34 minutes Medications reviewed and adjusted accordingly: Yes Anticipated discharge: Home with Homehealth - Family and patient at bedside declined recommended SNF placement for short term rehabiliatation. - Inpatient Certification Based on my medical assessment, after consideration of the patient's comorbidities, presenting symptoms, or acuity I expect that the services needed warrant INPATIENT care.: Yes I certify that my determination is in accordance with my understanding of Medicare's requirements for reasonable and necessary INPATIENT services [42 CFR 412.3e].: Yes Medical Necessity: Need Close Monitoring Due to Risk of Patient Decompensation, Need For IV Fluids, Need For Continuous Telemetry Monitoring, Risk of Complication if Not Cared For in Hospital Post Hospital Care: D/C Learning Design Specialist Documentation - Plan Summary Plan Summary: Continue current medication management. Request office workforce planner evaluation for [facility] services upon discharge.
[2017-04-10] MEDS ORDERED: LOSARTAN POTASSIUM 50 MG TABLET PO ONE (19:00)
[2017-04-10] MEDS: NORMAL SALINE 1000 ML 1,000 ML IV PRN (20:11)
[2017-04-11] MEDS: METRONIDAZOLE 500 MG TABLET PO SCH ×2 (05:57→13:10)
[2017-04-11] MEDS: LANSOPRAZOLE 30 MG TAB.RAP.DR PO SCH (05:57)
[2017-04-11] MEDS: NATEGLINIDE 60 MG TABLET PO SCH ×2 (08:15→10:29)
[2017-04-11] MEDS ORDERED: LOSARTAN POTASSIUM 50 MG TABLET PO SCH (10:00)
[2017-04-11] MEDS: CARVEDILOL 6.25 MG TABLET PO SCH (10:30)
[2017-04-11] MEDS: ASPIRIN 81 MG TABLET, ENT COATED PO SCH (10:30)
[2017-04-11] MEDS: SERTRALINE HCL 50 MG TABLET PO SCH (10:31)
[2017-04-11] MEDS: EZETIMIBE 10 MG TABLET PO SCH (10:31)
[2017-04-11] MEDS: SITAGLIPTIN PHOSPHATE 50 MG TABLET PO SCH (10:31)
[2017-04-11] MEDS: ATORVASTATIN CALCIUM 80 MG TABLET PO SCH (10:31)
[2017-04-11] MEDS: LEVETIRACETAM 500 MG TABLET PO SCH (10:54)
[2017-04-11] MEDS: ENOXAPARIN SODIUM INJ 40 MG/0.4 ML DISP.SYRIN SUBCUT SCH (10:54)
[2017-04-11] MEDS: NORMAL SALINE 10 ML SDV (SCHEDULED) IV SCH (10:55)
[2017-04-11] MEDS: LAMOTRIGINE 25 MG TAB.CHEW PO SCH (10:55)
--- NOTE | 2017-04-11 16:10 | PDOC DISCHARGE SUMMARY ---
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 difficile colitis Is this a current diagnosis for this admission?: Yes - Additional Information Resuscitation Status: Full Code Discharge Diet: Cardiac, Diabetic Discharge Activity: Activity As Tolerated, Slowly Increase Activity Prescriptions: Aspirin [Ecotrin 81 mg EC Tablet] 81 mg PO DAILY #30 tabec Losartan Potassium 100 mg PO DAILY #30 tablet Metronidazole 500 mg PO Q8 #20 tablet Home Medications: Atorvastatin Calcium [Lipitor 80 mg Tablet] 80 mg PO DAILY 04/02/17 Carvedilol [Coreg 6.25 mg Tablet] 6.25 mg PO Q12 04/02/17 Ezetimibe [Zetia 10 mg Tablet] 10 mg PO DAILY 04/02/17 Fluticasone/Vilanterol [Breo Ellipta 100-25 Mcg INH] 1 puff IH DAILY 04/02/17 Lamotrigine [Lamictal] 25 mg PO Q12 04/02/17 Levetiracetam [Keppra 500 mg Tablet] 500 mg PO Q12 04/02/17 Linagliptin [Tradjenta] 5 mg PO DAILY 04/02/17 Nateglinide [Starlix 60 mg Tablet] 60 mg PO Q8 04/02/17 Pantoprazole Sodium [Protonix] 40 mg PO DAILY 04/02/17 Sertraline HCl [Zoloft 50 mg Tablet] 50 mg PO DAILY 04/02/17 Aspirin [Ecotrin 81 mg EC Tablet] 81 mg PO DAILY #30 tabec 04/11/17 Losartan Potassium 100 mg PO DAILY #30 tablet 04/11/17 Metronidazole 500 mg PO Q8 #20 tablet 04/11/17 History of Present Illness History of Present Illness: RICARDO HOLM is a 66 year old female known to my practice presented to the office earlier today as walk-in visit for evaluation of new onset dizziness. She claimed that symptom onset was about 2 days ago, 03/31/17, but have worsening and limited her activities of daily living. She reported associated nausea but no vomiting. She described dizziness with spinning sensation. She claimed that her symptom is worsen with change in her position from sitting to standing and with rapid movement. She is not aware of her blood pressure but narrated multiple near fall episodes. She claimed that her last episode was more than 60 minutes in duration and she had recurrent episodes all day yesterday. There is associated headache, vision change and home blood glucose reading over 150mg/dL. She reported weakness in her legs but has history of prior stroke and ambulate with straight cane assistance. She denied any fever but always feel cold. She reported development of boil over right buttock region that she lanced and have been applying Neosporin at home for couple of days. She claimed compliance with her medication management at home. Her initial evaluation in the office was remarkable for leukocytosis and slight non- orthostatic drop in her blood pressure. In view of her associated symptoms ad laboratory findings, she was advised hospitalization for further evaluation and management. Hospital Course Hospital Course: Patient did improve with IV fluid support and IV antibiotic coverage. Her diarrhea persist and stool evaluation for Clostridium difficile toxin was reported positive. She has been on oral Metronidazole 500 mg p.o tid and will remain on same for 5 days. Patient had episode of unresponsiveness with concern for possible stroke. Her assessment did not show any indicative cause for the episode. In the cause of her rapid response team assessment, her serum HCG level was reported elevated. Patient has history of NIDHI with questionable oophorectomy. Her transvaginal ultrasound did not show any ovarian tissue. A repeat serum HCG remain elevated. Her blood pressure did remain elevated necessitating increase in her Losartan dosage to 100 mg po daily. She will remain on Ecotrin 81 mg po daily. Physical Exam Vital Signs: Temp Pulse Resp BP Pulse Ox 97.7 F 73 19 140/63 H 97 04/11/17 11:22 04/11/17 14:00 04/11/17 11:22 04/11/17 11:22 04/11/17 11:22 Intake & Output 04/10/17 04/11/17 04/12/17 06:59 06:59 06:59 Intake Total 575 851 118 Balance 575 851 118 Weight 75.8 kg Physical Exam: General appearance: PRESENT: no acute distress, well-developed, well-nourished Head exam: PRESENT: atraumatic, normocephalic Eye exam: PRESENT: conjunctiva pink, EOMI, PERRLA. ABSENT: scleral icterus Respiratory exam: PRESENT: clear to auscultation fred, decreased breath sounds - at lung bases Cardiovascular exam: PRESENT: RRR. ABSENT: diastolic murmur, rubs, systolic murmur GI/Abdominal exam: PRESENT: normal bowel sounds. ABSENT: ascites, tenderness, guarding, mass, organomegaly, rebound Extremities exam: ABSENT: pedal edema Neurological exam: PRESENT: alert, awake, oriented to person, oriented to place , oriented to time, oriented to situation, CN II-XII grossly intact. Right 3+/5 hemiparesis ABSENT: motor sensory deficit Psychiatric exam: PRESENT: appropriate affect, normal mood. ABSENT: homicidal ideation, suicidal ideation Skin exam: PRESENT: dry, intact, warm, other - improved right buttock region minimal superficial wound. ABSENT: cyanosis Results Laboratory Results: 04/08/17 10:54 04/08/17 10:54 04/08/17 04/08/17 04/10/17 13:16 13:16 05:00 Creatine Kinase 61 117 CK-MB (CK-2) 0.57 Troponin I < 0.012 04/10/17 05:00 Creatine Kinase CK-MB (CK-2) 1.18 Troponin I 0.015 Impressions: Guidance Fluoroscopy 04/04/17 00:00 IMPRESSION: SUCCESSFUL PLACEMENT OF A 5 FR DUAL LUMEN 29 CM PICC IN THE RIGHT BASILIC VEIN. Interventional Vascular Procedure 04/04/17 00:00 IMPRESSION: SUCCESSFUL PLACEMENT OF A 5 FR DUAL LUMEN 29 CM PICC IN THE RIGHT BASILIC VEIN. PICC Line Insertion 04/04/17 00:00 IMPRESSION: SUCCESSFUL PLACEMENT OF A 5 FR DUAL LUMEN 29 CM PICC IN THE RIGHT BASILIC VEIN. Carotid Doppler Study 04/08/17 00:00 IMPRESSION: NO HEMODYNAMICALLY SIGNIFICANT STENOSIS. Head CT 04/08/17 12:12 IMPRESSION: Stable chronic intracranial changes. These include right hemispheric infarct and periventricular white matter infarction. No acute findings. EVIDENCE OF ACUTE STROKE: NO. Chest X-Ray 04/08/17 12:52 IMPRESSION: 1. Allowing for slightly lower lung volumes, no acute cardiopulmonary disease. Right PICC line looks pulled back, now in the brachiocephalic vein. Transvaginal US 04/10/17 00:00 IMPRESSION: POST HYSTERECTOMY. OVARIES NOT VISUALIZED. NO SONOGRAPHIC ABNORMALITY IN THE PELVIS. Qualifiers PATEINT BEING DISCHARGED WITH ANY OF THE FOLLOWING DIAGNOSIS?: No Plan Discharge Plan: D/C home today with SECURITIES ADVISER services. She will follow up in the office as instructed at the time of her discharge. Time Spent: Less than 30 Minutes
[2017-04-11 17:11] VITALS: BP 139/72
== END 2017-04-11 17:10 | disposition home health service (06) | DRG 872 ==
LOC: 4S 14:35 → OBSVTOIN 04-03 09:59 → 3S 04-08 14:51
PROVIDERS: ADMIT Internal Medicine Geriatric Medicine; ATTEND Internal Medicine Geriatric Medicine
PROC: 02HV33Z Insertion of Infusion Device into Superior Vena Cava, Percutaneous Approach (ICD-10-PCS; principal; 2017-04-04)
PROC: B5181ZA Fluoroscopy of Superior Vena Cava using Low Osmolar Contrast, Guidance (ICD-10-PCS; 2017-04-04)
PROC: B548ZZA Ultrasonography of Superior Vena Cava, Guidance (ICD-10-PCS; 2017-04-04)
DX: A41.9 Sepsis, unspecified organism (principal); A04.72 Enterocolitis due to Clostridium difficile, not specified as recurrent; L03.317 Cellulitis of buttock; I69.351 Hemiplegia and hemiparesis following cerebral infarction affecting right dominant side; R42 Dizziness and giddiness; E11.9 Type 2 diabetes mellitus without complications; I10 Essential (primary) hypertension; E78.00 Pure hypercholesterolemia, unspecified; I25.10 Atherosclerotic heart disease of native coronary artery without angina pectoris; K21.9 Gastro-esophageal reflux disease without esophagitis; F32.9 Major depressive disorder, single episode, unspecified; Z79.899 Other long term (current) drug therapy; Z95.810 Presence of automatic (implantable) cardiac defibrillator; Z90.49 Acquired absence of other specified parts of digestive tract; Z90.710 Acquired absence of both cervix and uterus; I25.2 Old myocardial infarction; Z91.013 Allergy to seafood; Z88.2 Allergy status to sulfonamides; Z88.8 Allergy status to other drugs, medicaments and biological substances
CPT/HCPCS: 36415; 36569; 70450; 71045; 76830; 76937; 77001; 80053; 81001; 82550; 82553; 82962; 83735; 84484; 84702; 85025; 85610; 85730; 87040; 87045; 87086; 87205; 87493; 89055; 93005; 93010; 93306; 93880; 93976; G0378; G0379; G8978-GP; G8979-GP; G8987-GO; G8988-GO; J1335; J1642; J1650; J2405; J3490; J7030

== ENCOUNTER 2017-07-30 18:14 | Emergency (ER) | payer MEDICARE, OTHER ==
--- NOTE | 2017-07-30 20:01 | ER Document Report ---
ED Medical Screen (RME) - General Chief Complaint: Headache Stated Complaint: BODY PAIN Time Seen by Provider: 07/30/17 19:56 Notes: [age]-year-old female patient with diabetes, coronary artery disease, reports feeling poorly yesterday developing headache with body aches. By last night she is having frequency and dysuria. I have greeted and performed a rapid initial assessment of this patient. A comprehensive ED assessment and evaluation of the patient, analysis of test results and completion of the medical decision making process will be conducted by additional ED providers. TRAVEL OUTSIDE OF THE [place] IN LAST 30 DAYS: No - Related Data Allergies/Adverse Reactions: iodine [Iodine] Allergy (Verified 07/30/17 18:16) metformin Allergy (Verified 07/30/17 18:16) Sulfa (Sulfonamide Antibiotics) Allergy (Verified 07/30/17 18:16) Fish Allergy (Severe, Uncoded 07/30/17 18:16) Past Medical History - Social History Chew tobacco use (# tins/day): No Frequency of alcohol use: None Drug Abuse: None - Past Medical History Cardiac Medical History: Reports: Hx Heart Attack, Hx Hypercholesterolemia, Hx Hypertension Denies: Hx Congestive Heart Failure Pulmonary Medical History: Reports: Hx COPD Denies: Hx Asthma, Hx Bronchitis, Hx Pneumonia, Hx Tuberculosis Neurological Medical History: Reports: Hx Cerebrovascular Accident - residual left lower extremity weakness. Denies: Hx Seizures Endocrine Medical History: Reports: Hx Diabetes Mellitus Type 2 Renal/ Medical History: Denies: Hx End Stage Renal Disease, Hx Kidney Stones, Hx Peritoneal Dialysis GI Medical History: Reports: Hx Gastroesophageal Reflux Disease. Denies: Hx Cirrhosis, Hx Ulcer Musculoskeltal Medical History: Denies Hx Arthritis, Denies Hx Multiple Sclerosis Psychiatric Medical History: Reports: Hx Depression Denies: Hx Bipolar Disorder, Hx Schizophrenia Past Surgical History: Reports: Hx Cardiac Catheterization, Hx Cardiac Surgery - STENT placement, Hx Cholecystectomy, Hx Hysterectomy, Hx Pacemaker, Other - Pacemaker defibrillator placement - Immunizations Hx Diphtheria, Pertussis, Tetanus Vaccination: No History of Influenza Vaccine for 12/2016 - 05/2017 Season: Yes Influenza Administration Date for 12/2016 - 05/2017 Season: 12/15/16 Physical Exam - Vital signs Vitals: Temp Pulse Resp BP Pulse Ox 97.7 F 74 20 109/77 100 07/30/17 18:21 05/16/18 18:21 07/30/17 18:21 07/30/17 18:21 07/30/17 18:21 Course - Vital Signs Vital signs: Temp Pulse Resp BP Pulse Ox 97.7 F 74 20 109/77 100 07/30/17 18:21 07/30/17 18:21 07/30/17 18:21 07/30/17 18:21 07/30/17 18:21
[2017-07-30 20:42] LABS: ABSOLUTE BASOPHILS # (AUTO) 0.1 10^3/uL (0.0-0.2); ABSOLUTE EOSINOPHILS # (AUTO) 0.1 10^3/uL (0.0-0.6); ABSOLUTE LYMPHOCYTES (AUTO) 3.1 10^3/uL (0.5-4.7); ABSOLUTE MONOCYTES (AUTO) 0.6 10^3/uL (0.1-1.4); ABSOLUTE NEUT (AUTO) 6.9 10^3/uL (1.7-8.2); BASOPHILS % (AUTO) 1.4 % (0-2); EOSINOPHILS % (AUTO) 1.4 % (0-6); HEMATOCRIT 39.7 % (36.0-47.0); HEMOGLOBIN 12.9 g/dL (12.0-15.5); LYMPHOCYTES % (AUTO) 28.3 % (13-45); MEAN CORPUSCULAR HGB CONC 32.5 g/dL (32.0-36.0); MEAN CORPUSCULAR VOLUME 80 fl (80-97); MONOCYTES % (AUTO) 5.4 % (3-13); PLATELET COUNT 274 10^3/uL (150-450); RED BLOOD COUNT 4.96 10^6/uL (3.72-5.28); SEGMENTED NEUTROPHILS % (AUTO) 63.5 % (42-78); TOTAL CELLS COUNTED % (AUTO) 100 %; WHITE BLOOD COUNT 10.8 10^3/uL (4.0-10.5)
[2017-07-30 20:58] LABS: ALANINE AMINOTRANSFERASE 25 U/L (9-52); ALBUMIN 4.8 g/dL (3.5-5.0); ALKALINE PHOSPHATASE 114 U/L (38-126); ANION GAP 16 (5-19); APPEARANCE,URINE CLOUDY; ASPARTATE AMINO TRANSFERASE 23 U/L (14-36); BILIRUBIN,DIRECT 0.3 mg/dL (0.0-0.4); BILIRUBIN,TOTAL 0.8 mg/dL (0.2-1.3); BILIRUBIN,URINE NEGATIVE (NEGATIVE); BLOOD UREA NITROGEN 30 mg/dL (7-20); CALCIUM 10.7 mg/dL (8.4-10.2); CARBON DIOXIDE 26 mmol/L (22-30); CHLORIDE 103 mmol/L (98-107); COLOR,URINE YELLOW; CREATINE KINASE 35 U/L (30-135); GLUCOSE 101 mg/dL (75-110); GLUCOSE, URINE NEGATIVE (NEGATIVE); KETONES,URINE NEGATIVE (NEGATIVE); LEUKOCYTE ESTERASE,URINE LARGE (NEGATIVE); NITRITE,URINE NEGATIVE (NEGATIVE); POTASSIUM 4.7 mmol/L (3.6-5.0); PROTEIN,URINE 30 mg/dL (NEGATIVE); SODIUM 144.6 mmol/L (137-145); TOTAL PROTEIN 8.1 g/dL (6.3-8.2); URINE SPECIFIC GRAVITY 1.017; UROBILINOGEN,URINE NEGATIVE mg/dL (<2.0)
[2017-07-30] MEDS ORDERED: CEPHALEXIN 500 MG CAPSULE PO ONE (21:30)
--- NOTE | 2017-07-30 21:35 | ER Document Report ---
ED General - General Chief Complaint: Headache Stated Complaint: BODY PAIN Time Seen by Provider: 07/30/17 19:56 TRAVEL OUTSIDE OF THE [place] IN LAST 30 DAYS: No - HPI Notes: Patient is a 67-year-old female with a past medical history of diabetes, coronary artery disease, recurrent UTI, ?cva in the past who presents to the ED with family complaining of a bitemporal headache, urinary burning/urgency/ frequency, and occasional nausea 1 day. Family states that she was forgetting and losing track of conversations earlier today and they are concerned that it could either be a urinary infection or possibly a stroke which they report she has had in the past. Daughter states that when she does have urinary infections she does have some altered mental status. Patient states that right now she feels well aside from the headache and the urinary symptoms. She ambulates with a single-point cane as usual. No other concerns or complaints at this time. She is not on any blood thinners. Denies any fever, head injury , neck pain, current changes in vision/speech/mentation/hearing, URI, sore throat, chest pain, palpitations, syncope, cough, shortness of breath, wheeze, dyspnea, abdominal pain, current nausea/vomiting/diarrhea, urinary retention, hematuria, loss of control of bowel or bladder, numbness/tingling, saddle anesthesia, muscle paralysis/weakness, or rash. - Related Data Allergies/Adverse Reactions: iodine [Iodine] Allergy (Verified 07/30/17 18:16) metformin Allergy (Verified 07/30/17 18:16) Sulfa (Sulfonamide Antibiotics) Allergy (Verified 07/30/17 18:16) Fish Allergy (Severe, Uncoded 07/30/17 18:16) Past Medical History - Social History Smoking Status: Never Smoker Chew tobacco use (# tins/day): No Frequency of alcohol use: None Drug Abuse: None Family History: CAD, Hypertension Patient has suicidal ideation: No Patient has homicidal ideation: No - Past Medical History Cardiac Medical History: Reports: Hx Heart Attack, Hx Hypercholesterolemia, Hx Hypertension Denies: Hx Congestive Heart Failure Pulmonary Medical History: Reports: Hx COPD Denies: Hx Asthma, Hx Bronchitis, Hx Pneumonia, Hx Tuberculosis Neurological Medical History: Reports: Hx Cerebrovascular Accident - residual left lower extremity weakness. Denies: Hx Seizures Endocrine Medical History: Reports: Hx Diabetes Mellitus Type 2 Renal/ Medical History: Denies: Hx End Stage Renal Disease, Hx Kidney Stones, Hx Peritoneal Dialysis GI Medical History: Reports: Hx Gastroesophageal Reflux Disease. Denies: Hx Cirrhosis, Hx Ulcer Musculoskeltal Medical History: Denies Hx Arthritis, Denies Hx Multiple Sclerosis Psychiatric Medical History: Reports: Hx Depression Denies: Hx Bipolar Disorder, Hx Schizophrenia Past Surgical History: Reports: Hx Cardiac Catheterization, Hx Cardiac Surgery - STENT placement, Hx Cholecystectomy, Hx Hysterectomy, Hx Pacemaker, Other - Pacemaker defibrillator placement - Immunizations Hx Diphtheria, Pertussis, Tetanus Vaccination: No Hx Pneumococcal Vaccination: 12/16/11 Review of Systems - Review of Systems -: Yes All other systems reviewed and negative Physical Exam - Vital signs Vitals: Temp Pulse Resp BP Pulse Ox 97.7 F 74 20 109/77 100 07/30/17 18:21 07/30/17 18:21 07/30/17 18:21 07/30/17 18:21 07/30/17 18:21 - Notes Notes: PHYSICAL EXAMINATION: GENERAL: Well-appearing, well-nourished and in no acute distress. A&Ox4. Answers questions appropriately. HEAD: Atraumatic, normocephalic. Non-tender. No flores sign EYES: Pupils equal round and reactive to light, extraocular movements intact, sclera anicteric, conjunctiva are normal. No nystagmus ENT: EAC clear b/l. TM's intact b/l without erythema, fluid, or perforation. Nares patent and without discharge. oropharynx clear without exudates. No tonsilar hypertrophy or erythema. Moist mucous membranes. NECK: Normal range of motion, supple without lymphadenopathy. No rigidity. No midline tenderness. LUNGS: Breath sounds clear to auscultation bilaterally and equal. No wheezes rales or rhonchi. HEART: Regular rate and rhythm without murmurs, rubs, gallops. ABDOMEN: Soft, nontender, nondistended abdomen. No guarding, no rebound. No masses appreciated. Normal bowel sounds present. No CVA tenderness bilaterally. Musculoskeletal: Ext b/l: FROM to passive/active. Strength 5+/5. No deficits noted. No bony tenderness of extremities. Back: FROM to passive/active. Strength 5+/5. No vertebral point tenderness, stepoffs, or deformities. No other bony tenderness or ecchymosis. SLR negative b/l. Extremities: No cyanosis, clubbing, or edema b/l. Peripheral pulses 2+. Capillary refill less than 2 seconds. NEUROLOGICAL: NIH 0. GCS 15. Cranial nerves grossly intact. Normal speech, normal gait. Normal sensory, motor exams. Reflexes 2+ b/l. SANTIAGO's negative. Pronator drift negative. Heel/guevara, finger/nose wnl. PSYCH: Normal mood, normal affect. SKIN: Warm, Dry, normal turgor, no rashes or lesions noted. Course - Re-evaluation Re-evalutation: 07/30/17 21:34 Family states they want a head CT despite lower suspicion. Risk/benefit reviewed. Pt would also like a head CT. 07/30/17 23:15 Patient is an afebrile, well-hydrated, 67-year-old male who presents to the ED with an acute UTI and headache. Vitals are acceptable. PE is otherwise unremarkable for any focal neurological deficits. GCS 15, cranial nerves grossly intact, NIH 0. CT scan of the head was unremarkable for any acute pathology. VIDAL has improved. CBC showed a mildly elevated white count. CMP unremarkable. See urinalysis results. Urine cultures pending. Troponin unremarkable. Patient is tolerating p.o. without difficulties. She has no significant tachycardia, tachypnea, or hypoxia. She is nontoxic-appearing. Low suspicion for any meningitis, intracranial hemorrhage, ischemic stroke, sepsis, severe dehydration, pyelonephritis, urosepsis, or fracture at this time based on H&P. Patient is aware that this condition can change from initial presentation and that she needs to monitor symptoms closely for any acute changes. I will send her home with a prescription for Keflex. First dose provided in the ED today. Recheck with your PCM in 3-5 days. Return to the ED with any worsening/concerning symptoms otherwise as reviewed discharge. Patient /family in agreement. - Vital Signs Vital signs: Temp Pulse Resp BP Pulse Ox 97.7 F 74 20 109/77 100 07/30/17 18:21 07/30/17 18:21 07/30/17 18:21 07/30/17 18:21 07/30/17 18:21 - Laboratory Result Diagrams: 07/30/17 20:11 07/30/17 20:11 Laboratory results interpreted by me: 0507/30/17 07/30/17 20:11 20:11 20:11 WBC 10.8 H MCH 26.0 L RDW 16.0 H BUN 30 H Est GFR (Non-Af Amer) 54 L Calcium 10.7 H Urine Protein 30 H Urine Blood SMALL H Ur Leukocyte Esterase LARGE H Discharge - Discharge Clinical Impression: Acute UTI (urinary tract infection) Headache Qualifiers: Headache type: unspecified Headache chronicity pattern: acute headache Intractability: not intractable Qualified Code(s): R51 - Headache Condition: Stable Disposition: HOME, SELF-CARE Instructions: Cephalexin ([facility]), Urinary Tract Infection ([facility]), Headache ([facility]) Additional Instructions: Push fluids (i.e. water, cranberry juice) Proper hygenic technique Keep the skin clean Tylenol/ibuprofen as needed Take medications as directed F/u with your PCM in 3-5 days for a recheck Consider consult with a Urologist for ongoing/worsening symptoms. Return to the ED with any worsening symptoms and/or development of fever, worsening headache, changes in behavior/mentation/vision/speech, chest pain, palpitations, syncope, shortness of breath, trouble breathing, abdominal pain, n /v/d, blood in stool/urine, loss of control of bowel/bladder, urinary retention , muscle weakness/paralysis, saddle anesthesia, numbness/tingling, or other worsening symptoms that are concerning to you. Prescriptions: Cephalexin Monohydrate [Keflex 500 mg Capsule] 500 mg PO BID #14 capsule Referrals: PONCHO CONTRERAS MD [Primary Care Provider] - Follow up in 3-5 days
--- NOTE | 2017-07-30 22:46 | RADIOLOGY REPORT (SQ) ---
EXAM DESCRIPTION: CT HEAD WITHOUT COMPLETED DATE/TIME: 07/30/2017 10:29 pm REASON FOR STUDY: VIDAL COMPARISON: CT head 04/08/2017 TECHNIQUE: Axial images acquired through the brain without intravenous contrast. Images reviewed wi th bone, brain and subdural windows. Images stored on PACS. All CT scanners at this facility use dose modulation, iterative reconstruction, and/or weight based d osing when appropriate to reduce radiation dose to as low as reasonably achievable (ALARA). [facility]: Dose Right [facility]: CareDose [facility]: Dose Right [facility]: Teradose 4D [facility]: [employer] RADIATION DOSE: CT Rad equipment meets quality standard of care and radiation dose reduction techniq ues were employed. CTDIvol: 53.2 mGy. DLP: 1017 mGy-cm. mGy. LIMITATIONS: None. FINDINGS: VENTRICLES: Prominent. CEREBRUM: No mass effect. No hemorrhage. No midline shift. Areas of low density in the white matte r most likely due to chronic micro-vascular ischemic change. Redemonstration of remote infarcts at t he right temporoparietal lobes and at the left periventricular white matter. No evidence for acute t erritorial infarction. CEREBELLUM: No hemorrhage. No alteration of density. No evidence for acute infarction. EXTRAAXIAL SPACES: Age-related involutional change. No fluid collections. ORBITS AND GLOBE: Symmetrical contour of the globes. CALVARIUM: No depressed fracture. PARANASAL SINUSES: No air-fluid level. SOFT TISSUES: No hematoma. Portable IMPRESSION: No acute intracranial hemorrhage or acute territorial infarct. 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 Diffuse parenchymal volume loss. EVIDENCE OF ACUTE STROKE: NO. COMMENT: Quality ID # [id number]: Final reports with documentation of one or more dose reduction techniques (e.g., Automated exposure control, adjustment of the mA and/or kV according to patient size, use of iterative reconstruction technique) TECHNICAL DOCUMENTATION: JOB ID: [id number] [employer]- All Rights Reserved Reading location - IP/workstation name: [email or web address]
[2017-07-30] MEDS ORDERED: KETOROLAC TROMETHAMINE INJ/PF 30 MG/1 ML SDV IM ONE (23:19)
[2017-07-30 23:54] VITALS: BP 128/73
== END 2017-07-30 23:55 | disposition home or self-care (01) ==
LOC: ER 18:14
DX: N39.0 Urinary tract infection, site not specified (principal); R51 Headache; R30.9 Painful micturition, unspecified; R39.15 Urgency of urination; R35.0 Frequency of micturition; R11.0 Nausea; D72.829 Elevated white blood cell count, unspecified; E11.9 Type 2 diabetes mellitus without complications; I25.10 Atherosclerotic heart disease of native coronary artery without angina pectoris; I10 Essential (primary) hypertension
CPT/HCPCS: 99284; 96372; 36415; 87040; 87086; 82550; 85025; 80053; 81001; 84484; 70450; A9270; J1885